=== PATIENT | female | born 1940 ===

== ENCOUNTER 2023-07-15 11:32 | Outpatient (REF) | payer MEDICARE, SELFPAY ==
[2023-07-15 14:21] LABS: Anion Gap 16.7; Calcium 9.6 mg/dL (8.5-10.1); Carbon Dioxide 25.6 mmol/L (21.0-32.0); Chloride 94 mmol/L (98-107); Estimated GFR (African America 47 (>=60); Estimated GFR (Non-African Ame 39 (>=60); Glucose 184 mg/dL (74-106); Potassium 4.3 mmol/L (3.5-5.1); Sodium 132 mmol/L (136-145)
== END 2023-07-15 11:33 | disposition home or self-care (01) ==
LOC: LAB 11:32
PROVIDERS: PCP Nurse Practitioner Adult Health; Visit Provider Nurse Practitioner Adult Health
DX: R60.9 Edema, unspecified (principal)
CPT/HCPCS: 36415; 80048

== ENCOUNTER 2023-08-05 02:33 | Outpatient (OUT) | payer MEDICARE, SELFPAY ==
--- OUTSIDE RECORDS SUMMARY | 2023-08-05 02:37 | XMS_ITS ---
Patient Summarization (C-CDA 2.1 CCD) Created on: August 05, 2023 WILFREDO JOHNSON : 1940 Sex: Undifferentiated Author Organization Sample organization Care Team Providers Care Health Practice Manager Name Role Phone Unavailable Unavailable MD Sherita Burris Attending Provider NON STAFF Primary Care Provider UnavailMD Sherita uMñoz Referring Provider Unavailable Unavailable Sherita Burris Referring Unavailable Sherita Burris Attending Unavailable Sherita Burris Admitting Unavailable NON STAFF Primary Care Unavailable Sherita Burris Attending Unavailable Sherita Burris Admitting Unavailable NON STAFF Primary Care Unavailable Amos José Unavailable Unavailable Dr. Amos José Primary Care Unavailable Sherita Burris Attending Unavailable Sherita Burris Referring Unavailable Dr. Amos José Primary Care Unavailable Sherita Burris Attending Unavailable Sherita Burris Referring Unavailable LOU STERLING Attending Unavailable LOU STERLING Referring Unavailable Azael Browne DO Primary Care Provider SHERITA BURRIS Attending Unavailable AZAEL BROWNE Primary Care Unavailable ELAI MACIEL Referring Unavailable ERICA HERRERA Attending Unavailable NO PCP, NO PCP Primary Care Unavailable ERICA HERRERA Attending Unavailable ISIAH HERRERAMAD Referring Unavailable NO PCP, NO PCP Primary Care Unavailable ERICA HERRERA M Referring Unavailable NO PCP, NO PCP Primary Care Unavailable Allergies Allergy Classification Reported Allergen(s) Allergy Type Date of Onset Reaction(s) Facility glimepiride (1 source) glimepiride; Translations: [GLIMEPIRIDE] Drug Allergy 06-24-2021 [facility] Repository (3 sources) glimepiride; Translations: [GLIMEPIRIDE] Drug Allergy 06-24-2021 Unknown [facility] Encounters Encounter Date Encounter Type Care Provider Facility Start: 07-25-2023 End: 07-25-2023 ambulatory ROSA Winkler [facility] Start: 07-23-2023 End: 07[facility]2023 [facility]: 07-05-[facility]23 End: 07-05-2023 ambulatory [facility] Start: 07-05-2023 End: 07-05-2023 Office outpatient visit 25 minutes Sherita Burris MD Work Phone: [facility] Comment on above: S/P CABG (coronary a rtery bypass graft) (Primary Dx); Aortic valve replaced; Mixed hyperlipidemia; Multiple vessel coronary artery disease; Nonrheumatic mitral valve regurgitation; Edema, unspecified type Start: 06-19-2023 End: 06-19-2023 ambulatory LOU TSERLING Not Available Start: 05-14-2023 End: 05-15-2023 ambulatory ELIA MACIEL [facility] Start: 11-23-[address] Amos Braun ility: Start: 11-23-2022 Office outpatient vi sit 25 minutes Amos José [facility] DO Work Phone: Start: 05-11-2022 Office outpatient vi sit 25 minutes Amos José [facility] DO Work Phone: Start: 05-11-[address] Amos Braun ility: Start: 11-10-2021 Office outpatient vi sit 25 minutes Sherita Burris MD Work Phone: [facility] DO Work Phone: Start: 07-07-2021 Chart Update Sherita nguyen MD Work Phone: [facility] DO Work Phone: Start: 07-05-2021 SURGNON, Provider: Sherita Burris, Status: Pen, Time: 10:00 AM Sherita Burris MD Work Phone: [facility] DO Work Phone: Start: 07-05-2021 End: 07-06-2021 ambulatory Sherita Burris Facility:[facility] Start: 07-05-2021 End: 07-05-2021 Admission to same day surgery center MD Sherita Burris Work Phone: [facility] Start: 07-04-2021 Chart Update Sherita nguyen MD Work Phone: [facility] DO Work Phone: Start: 07-03-2021 End: 07-03-2021 ambulatory Sherita Burris Facility:[facility] Start: 07-03-2021 End: 07-03-2021 Patient encounter procedure MD Sherita Burris Work Phone: [facility] Start: 06-21-2021 AUDIT Sherita nguyen MD Work Phone: [facility] DO Work Phone: Start: 06-07-2021 Office consultation new/estab patient 80 min Sherita Burris MD Work Phone: [facility] DO Work Phone: Immunizations Immunization Date Immunization Notes Care Provider Fa cilijesus 12-26-2020 Moderna COVID-19 Vaccine 100 MCG/0.5ML Intramuscular Suspension Sherita Burris MD Work Phone: [facility] Comment on above: Series: 10-26-2020 Fluad Quadrivalent 0 .5 ML Intramuscular Prefilled Syringe Sherita Burris MD Work Phone: [place] [address] DO Work Phone: 10-26-2020 influenza, injectabl e, quadrivalent, preservative free Sherita Burris MD Work Phone: [facility] Work Phone: 10-26-2020 influenza virus vaccine, unspecified formulation Sherita Burris MD Work Phone: [facility] Work Phone: 06-13-2020 Moderna COVID-19 Vaccine 100 MCG/0.5ML Intramuscular Suspension Sherita Burris MD Work Phone: [place] [address] DO Work Phone: 05-16-2020 Moderna COVID-19 Vaccine 100 MCG/0.5ML Intramuscular Suspension Sherita Burris MD Work Phone: [place] [address] DO Work Phone: 12-18-2019 Fluad Quadrivalent 0 .5 ML Intramuscular Prefilled Syringe Sherita Burris MD Work Phone: [place] [address] DO Work Phone: 12-18-2019 influenza, injectabl e, quadrivalent, preservative free Sherita Burris MD Work Phone: [facility] Work Phone: 12-13-2018 Influenza, injectabl e, Madin [place] Canine Kidney, preservative free, quadrivalent Sherita Burris MD Work Phone: [place] [address] DO Work Phone: 11-06-2017 influenza, injectabl e, quadrivalent, preservative free [facility] Work Phone: 12-14-2016 influenza, injectabl e, quadrivalent, preservative free [facility] Burris MD [facility] Work Phone: 11-28-2016 pneumococcal polysaccharide vaccine, 23 valent Sherita Burris MD Work Phone: [facility] Medications Current Medications Medication Drug Class(es) Dates Sig (Normalized) Sig (Original) acetaminophen 500 mg oral tablet (1 source) take 1 tablet by mouth every six hours as needed acetaminophen (Tylenol) 500 mg tablet Take 1 tablet (500 mg) by mouth every 6 hours if needed for mild pain (1 - 3). Active apixaban 5 mg oral tablet (4 sources) Factor Xa Inhibitor Start: 11-10-2021 take 1 tablet by mouth twice daily apixaban (Eliquis) 5 mg tablet Take 1 tablet (5 mg) by mouth 2 times a day. 11/10/2021 Active ascorbic acid 500 mg oral tablet (8 sources) Vitamin C take 1 tablet by mouth once daily ascorbic acid (Vitamin C) 500 mg tablet Take 1 tablet (500 mg) by mouth once daily. Active take 1 capsule by mouth once colton ly Vitamin C 500 MG Oral Capsule TAKE 1 CAPSULE Daily Quantity: 0 Refills: 0 Ordered: 10-Nov-2021 DO Active atorvastatin 20 mg oral tablet (8 sources) HMG-CoA Reductase Inhibitor take 1 tablet by mouth once daily at bedtime atorvastatin (Lipitor) 20 mg tablet Take 1 tablet (20 mg) by mouth once daily at bedtime. Active bumetanide 2 mg oral tablet (4 sources) Loop Diuretic Start: 06-29-19 take 1 tablet by mouth once daily bumetanide (Bumex) 2 mg tablet Take 1 tablet (2 mg) by mouth once daily. 06/28/2021 Active cholecalciferol 0.025 mg oral tablet (8 sources) Vitamin D take 1 tablet by mouth once daily cholecalciferol (Vitamin D3) 25 MCG (1000 UT) tablet Take 1 tablet (1,000 Units) by mouth once daily. Active take 1 capsule by mouth once colton ly Vitamin D3 25 MCG (1000 UT) Oral Capsule TAKE 1 CAPSULE Daily Quantity: 0 Refills: 0 Ordered: 10-Nov-2021 DO Active EQL Vitamin D3 2 5 MCG (1000 UT) Oral Capsule TAKE DIRECTED. Quantity: 0 Refills: 0 Ordered: 07-Jun-2021 DO Active 3 ml insulin glargine 100 unt/ml pen injector (4 sources) Insulin Analog Start: 10-09-2021 insulin glargi ne (Lantus Solostar U-100 Insulin) 100 unit/mL (3 mL) pen Inject under the skin. 10/09/2021 Active Start: 10-09-2021 Lantus SoloSta r 100 UNIT/ML Subcutaneous Solution Pen- injector Quantity: 6 Refills: 0 Ordered: 09-Oct-2021 DO Start : 09-Oct-2021 Active magnesium oxide 400 mg oral tablet (1 source) take 1 tablet by saul th once daily magnesium oxide (Mag-Ox) 400 mg tablet Take 1 tablet (400 mg) by mouth once daily. Active melatonin 5 mg oral capsule (4 sources) take 1 capsule by mouth once daily at bedtime melatonin 5 mg capsule Take 1 capsule (5 mg) by mouth once daily at bedtime. Active metFORMIN hydrochloride 500 mg oral tablet (9 sources) Biguanide take 2 tablets by mouth twice daily at mealtime metFORMIN (Glucophage) 500 mg tablet Take 2 tablets (1,000 mg) by mouth 2 times a day with meals. Active End: 07-05-2023 take 1 tablet by mouth twice daily metFORMIN, MOD, (Glumetza) 1,000 mg 24 hr tablet Take 1 tablet (1,000 mg) by mouth 2 times a day. 07/05/2023 Discontinued (Dose adjustment) metOLazone 2.5 mg oral tablet (4 sources) Thiazide-like Diuretic Start: 07-05-2023 End: 07-04-2024 take 1 tablet by mouth every other day metOLazone (Zaroxolyn) 2.5 mg tablet Indications: Edema, unspecified type Take 1 tablet (2.5 mg) by mouth every other day. 15 tablet 11 07/05/2023 07/04/2024 Active Start: 10-17-2021 End: 07-05-2023 take 1 tablet by mouth two times weekly metOLazone (Zaroxolyn) 2.5 mg tablet Take 1 tablet (2.5 mg) by mouth 2 times a week. 10/17/2021 07/05/2023 Discontinued (Dose adjustment) 24 hr metoprolol succinate 50 mg extended release oral tablet (8 sources) beta-Adrenergic Ally take 1 tablet by mouth twice daily metoprolol succinate XL (Toprol-XL) 50 mg 24 hr tablet Take 1 tablet (50 mg) by mouth 2 times a day. Active take 1 tablet by mouth once joanna y Metoprolol Succinate ER 50 MG Oral Tablet Extended Release 24 Hour Take 1 tablet daily Quantity: 90 Refills: 3 Ordered: 07-Jun-2021 DO Active pantoprazole 40 mg delayed release oral tablet (7 sources) Proton Pump Inhibitor take 1 tablet by mouth once daily pantoprazole (ProtoNix) 40 mg EC tablet Take 1 tablet (40 mg) by mouth once daily. Active saccharomyces boulardii 250 mg oral capsule (1 source) take 1 capsule by mouth twice daily saccharomyces boulardii (Florastor) 250 mg capsule Take 1 capsule (250 mg) by mouth 2 times a day. Active traZODone hydrochloride 50 mg oral tablet (2 sources) Serotonin Reuptake Inhibitor take 1 tablet by mouth once daily at bedtime traZODone (Desyrel) 50 mg tablet Take 1 tablet (50 mg) by mouth once daily at bedtime. Active Completed/Discontinued Medications Medication Drug Class(es) Dates Sig (Normalized) Sig (Original) dicyclomine hydrochloride 10 mg oral capsule (8 sources) Anticholinergic End: take 1 capsule by mouth three times daily dicyclomine (Bentyl) 10 mg capsule Take 1 capsule (10 mg) by mouth 3 times a day. 07/05/2023 Discontinued (Therapy completed) furosemide 40 mg oral tablet (4 sources) Loop Diuretic take 1 tablet by mouth once daily Furosemide 40 MG Oral Tablet TAKE 1 TABLET BY MOUTH ONE TIME A DAY Quantity: 30 Refills: 0 Ordered: 07-Jun-2021 DO Active Magnesium (7 sources) take 1 tablet by mouth once daily Magnesium 400 MG Oral Tablet Take 1 tablet daily Quantity: 90 Refills: 3 Ordered: 07-Jun-2021 DO Active nitroglycerin 0.4 mg sublingual tablet (8 sources) Nitrate Vasodilator End: 4 nitroglycerin (Nitrostat) 0.[address] under the tongue. 07/05/2023 Discontinued (Therapy completed) microencapsulated potassium chloride 20 meq extended release oral tablet (4 sources) Start: 2 take 1 tablet by mouth once daily Potassium Chloride Christel ER 20 MEQ Oral Tablet Extended Release TAKE 1 TABLET DAILY. Quantity: 30 Refills: 1 Ordered: 28-Jun-2021 DO Start : 28-Jun-2021 Active spironolactone 25 mg oral tablet (8 sources) Aldosterone Antagonist Start: 2 take 1 tablet by mouth once daily Spironolactone 25 MG Oral Tablet TAKE 1 TABLET DAILY. Quantity: 90 Refills: 3 Ordered: 07-Jun-2021 Sherita Burris MD Start : 07-Jun-2021 Active warfarin sodium 2 mg oral tablet (4 sources) Vitamin K Antagonist take 1 tablet by mouth once daily Warfarin Sodium 2 MG Oral Tablet TAKE 1 TABLET DAILY DIRECTED PER [facility] / USP Quantity: 0 Refills: 0 Ordered: 07-Jun-2021 DO Active Payers Date Payer Category Payer Medicare [employer] [place] [employer] [place] [employer] [id number] 2022-Present [address] [place] [address] [id number] 2021 Self-pay [id number] 2021 Medicare [id number] 1940 Unknown [id number] 1940 Unknown [id number] 1940 Unknown [id number] 9 1940 Unknown [id number] 4 1940 Unknown [id number] 6 1940 Unknown [id number] 6 1940 Unknown [id number] 6 1940 Unknown [id number] 6 1940 Unknown [id number] 6 1940 Unknown [id number] 6 1940 Unknown [id number] 6 1940 Unknown [id number] 6 Medicare [id number] Unknown [employer] [place] [employer]AGE Unknown [id number] Unknown [id number] Plan of Treatment Date Care Activity Detail Author Start: 03-06-2024 End: 03-06-2024 Patient encounter procedure 03/06/2024 11:20 AM EST Office Visit [address] [facility] [place] [address] [place] [address] Sherita Burris MD [address] [facility] [address] [place] [address] [facility] Start: 10-27-2023 Influenza vaccination Influenz a Vaccine (Season Ended) [facility] Start: 07-19-2023 End: 05-10-2025 Basic metabolic 2000 panel - Serum or Plasma Basic Metabolic Panel Lab Routine Edema, unspecified type Expected: 07/19/2023 (Approximate), Expires: 07/04/2024 [facility] Service Area Work Phone: Comment on above: Expected: 07/19/2023 (Approximate), Expires: 07/04/2024 Start: 11-23-2022 FUV, Provider: Sherita Burris, Status: Pen, Time: 11:10 AM FUV, Provider: Sherita Burris, Status: Pen, Time: 11:10 AM -[facility] DO Work Phone: Start: 10-26-2022 COVID-19 Vaccine () COVID-19 Vaccine () [facility] Start: 06-27-2022 Echocardiography Echocardiogram [facility] Start: 05-11-2022 FUV, Provider: Sherita Burris, Status: Pen, Time: 10:40 AM FUV, Provider: Sherita Burris, Status: Pen, Time: 10:[address] [facility] DO Work Phone: Start: 08-10-2021 FUV, Provider: Sherita Burris, Status: Pen, Time: 1:[address] [facility] DO Work Phone: Start: 07-13-2021 SURGNONUH, Provider: Sherita Burris, Status: Pen, Time: 11:00 AM SURGNONUH, Provider: Sherita Burris, Status: Pen, Time: 11:00 AM -[facility] DO Work Phone: Start: 11-28-2017 Pneumococcal Vaccine : 65+ Years (2 of 2 - PCV) Pneumococcal Vaccine: 65+ Years (2 of 2 - PCV) [facility] Start: 1998 RSV patient s and/or patients aged 60+ years (1 - 1-dose 60+ series) RSV patients and/or patients aged 60+ years (1 - 1-dose 60+ series) [facility] Start: 1988 Zoster Vaccines (1 of 2) Zoste r Vaccines (1 of 2) [facility] Start: 1960 DTaP/Tdap/Td Vaccine s (1 - Tdap) DTaP/Tdap/Td Vaccines (1 - Tdap) [facility] Start: 1956 Diabetes mellitus screening Diabetes Screening [facility] Start: 1940 Creatinine measurement Creatinine Le alethea [facility] Start: 1938 Lipid panel Lipid Panel [facility] Start: 1940 Medicare Annual Well ness Visit Medicare Annual Wellness Visit (AWV) [facility] Start: 1940 Potassium measurement Potassium Leve l [facility] Start: 1940 Screening for osteoporosis Bone Dens ity Scan [facility] Carbon dioxide, tota l [Moles/volume] in Serum or Plasma [facility] Work Phone: Chloride [Moles/volu me] in Serum or Plasma [facility] Work Phone: INR in Platelet poor plasma by Coagulation assay [facility] Work Phone: Potassium [Moles/vol ume] in Serum or Plasma [facility] Work Phone: Sodium [Moles/volume ] in Serum or Plasma [facility] Work Phone: Problems Problem Classification Problem Date Documented Date Episodic/Chronic Cardiac dysrhythmias (16 sources) Atrial tachycardia; Translations: [Other specified cardiac dysrhythmias] Onset: 05-07-2023 05-07-2023 Chronic Coronary atherosclerosis and other heart disease (11 sources) Multi vessel coronary artery disease; Translations: [Coronary atherosclerosis of unspecified type of vessel, deering or graft] Onset: 05-07-2023 07-05-2023 Chronic Coronary atherosclerosis and other heart disease (2 sources) Presence of aortocoronary bypass graft; Translations: [Presence of aortocoronary bypass graft] Onset: 05-07-2023 Episodic Diabetes mellitus without complication (1 source) Type 2 diabetes mellitus without complications; Translations: [Type 2 diabetes mellitus without complications] Onset: 05-14-2023 Chronic Disorders of lipid metabolism (11 sources) Hyperlipidemia; Translations: [Other and unspecified hyperlipidemia] Onset: 05-07-2023 07-05-2023 Chronic E Codes: Fall (1 source) Unspecified fall, initial encounter; Translations: [Unspecified fall, initial encounter] Onset: 07-23-2023 Episodic E Codes: Fall (1 source) Fall Onset: 07-23-2023 Fracture of upper limb (1 source) Unspecified displaced fracture of surgical neck of right humerus, initial encounter for closed fracture; Translations: [Unspecified displaced fracture of surgical neck of right humerus, initial encounter for closed fracture] Onset: 07-23-2023 Episodic Heart valve disorders (16 sources) History of aortic valve replacement; Translations: [Heart valve replaced by other means] Onset: 05-07-2023 07-05-2023 Chronic Other aftercare (7 sources) Drug therapy finding; Translations: [Long-term (current) use of anticoagulants] Episodic Other nutritional; endocrine; and metabolic disorders (9 sources) Overweight in adulthood with body mass index of 25 or more but less than 30; Translations: [Overweight] Onset: 07-08-2023 07-08-2023 Episodic Residual codes; unclassified (1 source) Edema; Translations: [Edema, unspecified] 07-05-2023 Episodic Residual codes; unclassified (2 sources) Edema, unspecified; Translations: [Edema, unspecified] Onset: 07-05-2023 Episodic Screening and history of mental health and substance abuse codes (7 sources) Ex-smoker; Translations: [Personal history of tobacco use] Episodic Comment on above: AT AGE 14 FOR ONE YE AR; Unclassified (1 source) I48.19 - Other persistent atrial fibrillation; Translations: [I48.19 - Other persistent atrial fibrillation] Onset: 07-05-2021 Unclassified (1 source) Z01.812 - Encounter for preprocedural laboratory examination; Translations: [Z01.812 - Encounter for preprocedural laboratory examination] Onset: 07-03-2021 Unclassified (1 source) EMS Onset: 07-23-2023 Procedures Date Procedure Procedure Detail Performing Clinician Start: 07-05-2023 Basic metabolic 2000 panel - Serum or Plasma SHERITA BURRIS Start: 05-07-2023 History of coronary artery bypass grafting S/P CABG (coronary artery bypass graft) Sherita Burris MD Work Phone: Start: 07-03-2021 SARS Antigen (LFIA) MD Sherita Burris Work Phone: Cardioversion Sherita nguyen MD Work Phone: History of coronary artery bypass grafting S/P CABG (coronary artery bypass graft) Sherita Burris MD Work Phone: History of coronary artery bypass grafting S/P CABG (coronary artery bypass graft) Sherita Burris MD Work Phone: Operative procedure on ankle Sherita Burris MD Work Phone: Replacement of aorti c valve Sherita Burris MD Work Phone: Total colonoscopy Sherita bhatt MD Work Phone: Comment on above: UNSURE OF DATE; Results Test Name Value Interpretation Reference Range Facility CT BRAIN WO CONTon CT BRAIN WO CONT CT BRAIN WO CONT CT BRAIN WO CONT INDICATION: Head trauma. TECHNIQUE: CT of the head without intravenous contrast. Reviewed in brain, bone, and soft tissue windows. COMPARISON: None. FINDINGS: No intracranial hemorrhage. Scattered periventricular and deep cortical white matter areas of low attenuation, likely representing sequelae of chronic microangiopathy. No territorial loss of max-white differentiation. Diffuse cerebral volume loss with appropriate size and morphology of the ventricular system. No extra-axial fluid collections or shift of midline structures. Patent basal cisterns. No depressed or displaced calvarial fracture. IMPRESSION: 1. No acute intracranial abnormality. 2. Senescent changes including cerebral volume loss and sequelae of chronic microangiopathy. 3. If there is sufficient clinical concern for acute ischemia or an occult abnormality, further evaluation with brain MRI is recommended. All CT scans at this facility use dose modulation, iterative reconstruction, and/or weight based dosing when appropriate to reduce radiation dose to as low as reasonably achievable. Finalized by Monster Escoto MD on 07/23/2023 9:52 AM Normal [facility] CT CERVICAL SPINE WO CONTon 07-23-2023 CT CERVICAL SPINE WO CONT CT CERVICAL SPINE WO CONT CLINICAL INFORMATION: Fall with cervical spine pain. Neck trauma.. PROCEDURE: Routine cervical spine protocol CT was obtained without intravenous contrast. Sagittal and coronal reformatted images were obtained from the axial data. Automated exposure control was utilized. All CT scans at this facility dose modulation, iterative reconstruction, and/or weight based dosing when appropriate to reduce radiation dose to as low as reasonably achievable. FINDINGS: Satisfactory alignment of the cervical spine. The vertebral body heights are preserved. No fracture or malalignment. Moderate degenerative changes throughout the cervical spine with osteophyte formation. The atlantoaxial space is intact with degenerative sclerosis. The posterior elements are intact with facet hypertrophy. Partially visualized lung apices are unremarkable. No acute findings in the soft tissues. Please note, ligamentous injury is not well evaluated on a neutral position CT. If concern for ligamentous injury consider flex-ex radiographs or MRI. IMPRESSION: No acute osseous abnormalities in the cervical spine. Finalized by Boubacar Cummins MD on 07/23/2023 10:07 AM Normal [facility] XR CHEST 1 VWon 07-23-2023 XR CHEST 1 VW XR CHEST 1 VW XR CHEST 1 VW HISTORY: Fall. Pain. COMPARISON: 06/27/2021 FINDINGS: AP supine film obtained. Unchanged, enlarged cardiac silhouette. No large pneumothorax or sizable pleural effusion, although evaluation is degraded by supine technique. No consolidation. No displaced or deforming rib fracture, although this exam is not optimized for osseous evaluation. Possible step-off in the proximal right humerus. IMPRESSION: 1. No radiographic evidence of acute cardiopulmonary process. 2. Possible cortical step-off in the proximal right humerus. Refer to concurrently performed radiographs of the shoulder for complete evaluation. Approved by Resident Ramesh Tay MD on 07/23/2023 10:00 AM Leonardo Limon have personally reviewed the image(s) and agree with and/or edited the report Finalized by Leonardo Johns on 07/23/2023 10:06 AM Normal [facility] XR HIP LT 2-3 VIEWS W OR WO PELVISon 07-23-2023 XR HIP LT 2-3 VIEWS W OR WO PELVIS XR HIP LT 2-3 VIEWS W OR WO PELVIS XR HIP LT 2-3 VIEWS W OR WO PELVIS CLINICAL INFORMATION: Hip pain after a fall. COMPARISON: None. IMPRESSION: * Degenerative changes of the left hip joint with no visualized acute fracture. Osteopenia and degenerative changes are noted. Vascular calcifications. Surgical clips are noted. Finalized by Lane Doyle MD on 07/23/2023 10:10 AM Normal [facility] XR SHOULDER RT MIN 2 VWSon 0 07-23-2023 XR SHOULDER RT MIN 2 VWS XR SHOULDER RT MIN 2 VWS XR SHOULDER RT MIN 2 VWS CLINICAL INFORMATION: fall COMPARISON: None. IMPRESSION: * Posttraumatic deformity of the right proximal humerus with superimposed neck fracture suspected. Osteopenia and degenerative changes are noted. Finalized by Lane Doyle MD on 07/23/2023 10:09 AM Normal [facility] HGB A1C (GLYCO-HGB)on 2023 Glucose [Mass/Vol] 214 mg/dL Normal [facility] HbA1c (Bld) [Mass fraction] 9.1 % High 4.4-5.6 [facility] Comment on above: Result Comment: NOTE ADA Guidelines Result HgbA1c Normal : less than 5.7 % Prediabetes : 5.7 % to 6.4 % Diabetes : > 6.4 % Use with caution in patients with abnormal hemoglobin variants as the half-life of red blood cells and in vivo glycation rates are affected. Office Visit (Cardiology)on 11-23-2022 Follow-up visit Diagnoses/Problems Assessed Persistent atrial fibrillation (427.31) (I48.19) Anticoagulated (V58.61) (Z79.01) Aortic valve replaced (V43.3) (Z95.2) Hyperlipidemia (272.4) (E78.5) Multiple vessel coronary artery disease (414.00) (I25.10) Overweight with body mass index (BMI) of 26 to 26.9 in adult (278.02,V85.22) (E66.3,Z68.26) S/P CABG (coronary artery bypass graft) (V45.81) (Z95.1) Nonrheumatic mitral valve regurgitation (424.0) (I34.0) Orders Anticoagulated, Multiple vessel coronary artery disease, Persistent atrial fibrillation Basic Metabolic Panel; Status:Active - Retrospective Authorization; Requested for:24Wal1634; Complete Blood Count; Status:Active - Retrospective Authorization; Requested for:[id number]; Hyperlipidemia, Multiple vessel coronary artery disease ALT - Alanine Aminotransferase, Serum; Status:Active - Retrospective Authorization; Requested for:16Mww8569; AST; Status:Active - Retrospective Authorization; Requested for:07Cqr4989; Lipid Panel; Status:Active - Retrospective Authorization; Requested for:09Nsb3530; Overweight with body mass index (BMI) of 26 to 26.9 in adult Healthy Weight Tips; Status:Complete - Retrospective Authorization; Done: 43Ljf2672 Some eating tips that can help you lose weight.; Status:Complete - Retrospective Authorization; Done: 13Epj2426 Persistent atrial fibrillation IO EKG Electrocardiogram- 12 Lead; Status:Complete; Done: 50Bjz8420 Patient Instructions Please bring all medicines, vitamins, and herbal supplements with you when you come to the office. Prescriptions will not be filled unless you are compliant with your follow up appointments or have a follow up appointment scheduled as per instruction of your physician. Refills should be requested at the time of your visit. Fall prevention education given Follow up in 8 months Same meds Lab work The provider reviewed the following test(s) and result(s) with the patient: ECG Chief Complaint WILFREDO JOHNSON is being seen for a 6 wekg month follow-up of. History of Present Illness Patient is here for follow-up continue management for persistent atrial fibrillation, aortic valve disease, mitral valve disease, coronary artery disease hyperlipidemia. Since last time I saw her she reports she is doing really well. She denies lightheadedness, dizziness or syncope. She remain in the jail. No recent lab available to review. She remains reasonably active. Assessment 1. Persis persistent becoming permanent atrial fibrillation cardioversion was successful but she went back to atrial fibrillation. She elected for heart rate control on long-term anticoagulation bilateral prostatic 2. History of bioprosthetic aortic valve replacement recent echo suggest good function. Echo was done at [facility] 3. Presumed single-vessel coronary artery disease status post single-vessel bypass surgery detail is lacking 4. LV systolic dysfunction with LVEF in the normal range based on echo from outside facility 5. Congestive heart failure related to the above factors compensated 6. Hyperlipidemia 7. Diabetes mellitus 8. Obesity 9. Recent echo at [facility] demonstrate mild to moderate mitral stenosis and mitral regurgitation Plan 1. I advised the patient to follow low-salt diet 2. I discussed with her daughter treatment option for atrial fibrillation. We discussed heart rate control strategy versus rhythm control strategy. Following lengthy discussion concerning the patient and jail and having no symptoms we elected to continue with heart rate control strategy the family understood and agreed 3. 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 We will repeat lab work as ordered Surgical History Problems History of Ankle surgery History of Aortic valve replacement History of Cardioversion History of Complete colonoscopy UNSURE OF DATE Current Meds Medication NameInstruction Atorvastatin Calcium 20 MG Oral TabletTAKE 1 TABLET AT BEDTIME. Bentyl 10 MG CAPSTAKE 1 CAPSULE 3 TIMES DAILY. NEEDED Bumetanide 2 MG Oral TabletTAKE 1 TABLET DAILY. Eliquis 5 MG Oral TabletTake 1 tablet twice daily Lantus SoloStar 100 UNIT/ML Subcutaneous Solution Pen-injector Magnesium 400 MG Oral TabletTake 1 tablet daily Melatonin 5 MG Oral CapsuleTAKE 1 CAPSULE Bedtime metFORMIN HCl ER (MOD) 1000 MG Oral Tablet Extended Release 24 HourTake 1 tablet twice daily metOLazone 2.5 MG Oral Tablet1 tab 2 times weekly sat -wed Metoprolol Succinate ER 50 MG Oral Tablet Extended Release 24 HourTake 1 tablet twice daily Nitroglycerin 0.4 MG Sublingual Tablet SublingualPLACE 1 TABLET UNDER THE TONGUE EVERY 5 MINUTES FOR UP TO 3 DOSES NEEDED FOR CHEST PAIN.CALL 911 IF PAIN PERSISTS. Pantoprazole Sodium 40 MG Oral Tablet Delayed ReleaseTAKE 1 TABLET DAILY. Potassium Chloride Christel ER 20 (more content not included)... Normal [place] Tobacco Screening.on 023 Adult depression screening assessment No [facility] 250 DO Work Phone: Fall risk assessment b) One or more fall s in the last year [facility] 250 DO Work Phone: [phone] Tobacco use status HS b) No [facility] 250 DO Work Phone: Office Visit (Cardiology)on 05-11-2022 Follow-up visit Diagnoses/Problems Assessed Persistent atrial fibrillation (427.31) (I48.19) S/P CABG (coronary artery bypass graft) (V45.81) (Z95.1) Aortic valve replaced (V43.3) (Z95.2) Atrial tachycardia (427.89) (I47.1) Former smoker (V15.82) (Z87.891) AT AGE 14 FOR ONE YEAR Hyperlipidemia (272.4) (E78.5) Multiple vessel coronary artery disease (414.00) (I25.10) Overweight with body mass index (BMI) of 25 to 25.9 in adult (278.02,V85.21) (E66.3,Z68.25) Anticoagulated (V58.61) (Z79.01) Overweight with body mass index (BMI) of 26 to 26.9 in adult (278.02,V85.22) (E66.3,Z68.26) Orders Hyperlipidemia, Multiple vessel coronary artery disease Renew: Atorvastatin Calcium 20 MG Oral Tablet; TAKE 1 TABLET AT BEDTIME Hyperlipidemia, Multiple vessel coronary artery disease, Persistent atrial fibrillation, S/P CABG (coronary artery bypass graft) ALT - Alanine Aminotransferase, Serum; Status:Active - Retrospective Authorization; Requested for:11May2022; AST; Status:Active - Retrospective Authorization; Requested for:11May2022; Basic Metabolic Panel; Status:Active - Retrospective Authorization; Requested for:11May2022; Complete Blood Count; Status:Active - Retrospective Authorization; Requested for:11May2022; Lipid Panel; Status:Active - Retrospective Authorization; Requested for:11May2022; Persistent atrial fibrillation IO EKG Electrocardiogram- 12 Lead; Status:Complete; Done: 11May2022 SocHx: Former smoker Tobacco Use Screening; Status:Complete; Done: 11May2022 Patient Instructions Please bring all medicines, vitamins, and herbal supplements with you when you come to the office. Prescriptions will not be filled unless you are compliant with your follow up appointments or have a follow up appointment scheduled as per instruction of your physician. Refills should be requested at the time of your visit. Follow up in 6 months with EKG Chief Complaint WILFREDO JOHNSON is being seen for a 6 month follow-up of. History of Present Illness Patient is here for follow-up continue management for persistent atrial fibrillation with prior cardioversion, aortic valve replacement, coronary artery disease and history of congestive heart failure. Since last time I saw her she reports she is feeling well. She is a jail. She denies complaint of chest pain, palpitation, lightheadedness, dizziness or syncope. On examination the patient noted to be in back in atrial fibrillation. EKG confirmed that. Her recent echocardiogram was noted and reviewed with her. Assessment 1. Persistent atrial fibrillation with prior cardioversion now back to atrial fibrillation but completely asymptomatic. Heart rate is controlled 2. History of prostatic aortic valve replacement recent echo suggest good function 3. Presumed single-vessel coronary artery disease status post single-vessel bypass surgery detail is lacking 4. LV systolic dysfunction with LVEF in the normal range based on echo from outside facility 5. Congestive heart failure related to the above factors compensated 6. Hyperlipidemia 7. Diabetes mellitus 8. Obesity Plan 1. I advised the patient to follow low-salt diet 2. I discussed with her daughter treatment option for atrial fibrillation. We discussed heart rate control strategy versus rhythm control strategy. Following lengthy discussion concerning the patient and jail and having no symptoms we elected to continue with heart rate control strategy the family understood and agreed 3. 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 We will repeat lab work as ordered Surgical History Problems History of Ankle surgery History of Aortic valve replacement History of Cardioversion History of Complete colonoscopy UNSURE OF DATE Current Meds Medication NameInstruction Atorvastatin Calcium 20 MG Oral TabletTAKE 1 TABLET AT BEDTIME. Bentyl 10 MG CAPSTAKE 1 CAPSULE 3 TIMES DAILY. NEEDED Bumetanide 2 MG Oral TabletTAKE 1 TABLET DAILY. Eliquis 5 MG Oral TabletTake 1 tablet twice daily Lantus SoloStar 100 UNIT/ML Subcutaneous Solution Pen-injector Magnesium 400 MG Oral TabletTake 1 tablet daily Melatonin 5 MG Oral CapsuleTAKE 1 CAPSULE Bedtime metFORMIN HCl ER (MOD) 1000 MG Oral Tablet Extended Release 24 HourTake 1 tablet twice daily Metoprolol Succinate ER 50 MG Oral Tablet Extended Release 24 HourTake 1 tablet twice daily Nitroglycerin 0.4 MG Sublingual Tablet SublingualPLACE 1 TABLET UNDER THE TONGUE EVERY 5 MINUTES FOR UP TO 3 DOSES NEEDED FOR CHEST PAIN.CALL 911 IF PAIN PERSISTS. Potassium Chloride Christel ER 20 MEQ Oral Tablet Extended ReleaseTAKE 1 TABLET DAILY. Spironolactone 25 MG Oral TabletTAKE 1 TABLET DAILY. Vitamin C 500 MG Oral CapsuleTAKE 1 CAPSULE Daily Vitamin D3 25 MCG (1000 UT) Oral CapsuleTAKE 1 CAPSULE Daily Allergies Medication No Known Drug Allergies Recorded (more content not included)... Normal [place] [employer] Tobacco Screening.on Fall risk assessment a) No falls within the last year [facility] 250 DO Work Phone: Tobacco use status [facility]PH[facility] b) No [facility] Work Phone: Tobacco Screening. Yes [facility] 250 DO Work Phone: Tobacco Screening.on Fall risk assessment a) [facility] the [facility] DO Work Phone: Tobacco use status CP b) No [facility] DO Work Phone: POCT Glucose Levelon Glucose [Mass/Vol] 224 mg/dL High 74-118 [facility] Comment on above: Result Comment: Resu lt error found and corrected during lab audit. SD 07/06/2021 11:22:03 EDT Performed By: #### 4 [id number] ####[facility] (DEFAULT)[address] [place] [address] ECG 12 lead ECGon 07-05-2021 ECG 12 lead ECG [facility] [address] [place] [address] Electrocardiograph Report Signed Patient: Wilfredo Johnson MR#: [id number] 18 : 1940 Acct:[id number] Age/Sex: 81 / F ADM Date: 07/05/21 Loc: Room: Type: [facility] Attending Dr: Shreita Burris MD Ordering Provider: Sherita Burris MD Date of Service: 07/05/21/ ECG/ECG 12 lead ECG: PRE-CARDIOVERSION Copies to: Test Reason : Blood Pressure : 124/057 mmHG Vent. Rate : 061 BPM Atrial Rate : 061 BPM P-R Int : 210 ms QRS Dur : 138 ms QT Int : 450 ms P-R-T Axes : 083 -53 112 degrees QTc Int : 453 ms Sinus rhythm with 1st degree AV block with premature atrial complexes Left axis deviation Nonspecific intraventricular block - atypical LBBB Nonspecific T wave abnormality Abnormal ECG When compared with ECG of 05-JUL-2021 08:48, (Unconfirmed) Sinus rhythm has replaced Atrial fibrillation Vent. rate has decreased BY 37 BPM Confirmed by WU FINNEY DO ([id number]) on 07/06/2021 4:48:57 PM Referred By: Sherita Burris Electronically Signed By:WU FINNEY DO Transcribed By: YOUNG Signed By Wu Finney DO 07/06 1649 Normal [facility] ECG post procedureon 022 ECG post procedure [place] [address] Electrocardiograph Report Signed Patient: Wilfredo Johnson MR#: [id number] 18 : 1940 Acct:[id number] Age/Sex: 81 / F ADM Date: 07/05/21 Loc: Room: Type: [facility] Attending Dr: Sherita Burris MD Ordering Provider: Sherita Burris MD Date of Service: 07/05/21/ ECG/ECG post procedure: POST CARDIOVERSION Copies to: Test Reason : Blood Pressure : / mmHG Vent. Rate : 098 BPM Atrial Rate : 119 BPM P-R Int : 000 ms QRS Dur : 136 ms QT Int : 386 ms P-R-T Axes : 000 -44 140 degrees QTc Int : 492 ms Atrial fibrillation Left axis deviation Left bundle branch block Abnormal ECG No previous ECGs available Confirmed by WU FINNEY DO ([id number]) on 07/06/2021 4:48:26 PM Referred By: Sherita Burris Electronically Signed By:WU SHARMIN DO Transcribed By: MUS Signed By Wu Finney DO 07/06 1648 Normal [facility] Electrolyteson 07-05-2021 Chloride [Moles/Vol] 90 mmol/L Low 95-114 [facility] Comment on above: Performed By: #### P T, DMITRI #### [facility] [address] [place] [id number] [facility] CO2 [Moles/Vol] 35.2 mmol/L High 22.0-30.0 [facility] Comment on above: Result Comment: PERF ORMED BY: [facility] [address] [place] [address] PATHOLOGIST PROGRAM COORDINATOR FOR RESIDENCE LIFE OLIMPIA ORDONEZ M.D. Performed By: #### P T, DMITRI #### [facility] [address] Potassium [Moles/Vol] 3.9 mmol/L Normal 3.5-5.1 [facility] Comment on above: Performed By: #### P T, DMITRI #### [facility] [address] Sodium [Moles/Vol] 139 mmol/L Normal 136-146 [facility] Comment on above: Performed By: #### P T, DMITRI #### [facility] [address] No Panel Informationon 07-05 35.2\S\35.2 above high threshold 22.0-30.[address] [facility] 250 DO Work Phone: Comment on above: PERFORMED BY:[facility] [place], [place] [phone] MEDICAL DIRECTOROLIMPIA ORDONEZ M.D. 90\S\90 below low threshold 95-[address] [facility] 250 DO Work Phone: 3.9\S\3.9 Normal 3.5-5.[address] [facility] 250 DO Work Phone: 139\S\139 Normal 136-146 [facility] y 250 DO Work Phone: 2.7\S\2.7 Normal [facility] y 250 DO Work Phone: Comment on above: INR Therapeutic Rang e A) Pre- and Peroperative OAT started two weeks before surgery. NOT HIP SURGERY: 1.5 - 2.5 HIP SURGERY: 2 - 3 B) Primary and secondary prevention of venous THROMBOSIS: 2 - 3 C) Active venous thrombosis, pulmonary embolism and prevention of recurrent venous thrombosis: 2 - 3 D) Prevention of arterial thromboembolism including patients with mechanical heart valves: 3 - 4.5PERFORMED BY:[facility] [place], [place] [phone] MEDICAL DIRECTOROLIMPIA ORDONEZ M.D. 31.2\S\31.2 above high threshold 9.0-12.9 [facility] 250 DO Work Phone: Prothrombin Time INRon 07-05 INR Coag (PPP) [Relative time] 2.7 {INR} Normal [facility] Comment on above: Result Comment: INR Therapeutic Range A) Pre- and Peroperative OAT started two weeks before surgery. NOT HIP SURGERY: 1.5 - 2.5 HIP SURGERY: 2 - 3 B) Primary and secondary prevention of venous THROMBOSIS: 2 - 3 C) Active venous thrombosis, pulmonary embolism and prevention of recurrent venous thrombosis: 2 - 3 D) Prevention of arterial thromboembolism including patients with mechanical heart valves: 3 - 4.5 PERFORMED BY: [facility] [address] [place] [address] PATHOLOGIST PROGRAM COORDINATOR FOR RESIDENCE LIFE OLIMPIA ORDONEZ M.D. Performed By: #### P TDMITRI #### [facility] [address] [place] [id number] [facility] PT Coag (PPP) [Time] 31.2 s High 9.0-12.9 [facility] Comment on above: Performed By: #### P T LYTES #### [facility] [address] [place] [id number] [place] COVID-19 Antigenon 2 COVID-19 Antigen Healthcare Worker?: N Reference Range: Negative Negative results, from patients with symptom onset beyond five days, should be treated as presumptive and confirmation with a molecular assay, if necessary, for patient management, may be performed. Negative results do not rule out COVID-19 and should not be used as the sole basis for treatment or patient management decisions, including infection control decisions. Negative results should be considered in the context of a patient's recent exposures, history and the presence of clinical signs and symptoms consistent with COVID-19. The Galilea SARS Antigen MAURICIO does not differentiate between SARS-CoV and SARS-CoV-2. This test was developed and its performance characteristic determined by [facility] and validated at [facility]. This test has not been FDA cleared or approved. This test has been authorized by FDA under an Emergency Use Authorization (EUA). This test has been validated in accordance with the FDA's Guidance Document (Policy for Diagnostics Testing in Laboratories Certified to Perform High Complexity Testing under CLIA prior to Emergency Use Authorization for Coronavirus Disease-2019 during the Public Health Emergency) issued on May 28, 2019. This test is only authorized for the duration of time the declaration that circumstances exist justifying the authorization of the emergency use of in vitro diagnostic tests for detection of SARS-CoV-2 virus and/or diagnosis of COVID-19 infection under section 564(b)(1) of the Act, 21 U.S.C. 360bbb-3(b)(1), unless the authorization is terminated or revoked sooner. SARS-CoV+SARS-CoV-2 (COVID-19) Ag [Presence] in Respiratory specimen by Rapid immunoassay Negative for SARS Antigen by MAURICIO PERFORMED BY: [place] [address] PATHOLOGIST PROGRAM COORDINATOR FOR RESIDENCE LIFE OLIMPIA ORDONEZ M.D. [facility] Comment on above: Performed By: #### C OVID-19 JUMA CALERO #### [address] COVID-19 SOFIAOrdered By: Marcos Burris on 07-03-2021 SARS-CoV+SARS-CoV-2 (COVID-19) Ag IA.rapid Ql (Resp) Negative Negative [facility] Comment on above: This is a duplicate Galilea SARS Antigen (MAURICIO) result to be used for statistical tracking purpose only. Laboratory - Microbiology an d Antimicrobial susceptibilityon 07-03-2021 SARS-CoV-2 (COVID-19) RNA KESHAWN+probe Ql (Unsp spec) [facility] y 250 DO Work Phone: No Panel InformationOrdered By: Sherita Burris on 07-03-2021 SARS Antigen (LFIA) [facility] No Panel Informationon 07-03 Negative Normal Negative [facility] y 250 DO Work Phone: Comment on above: This is a duplicate Galilea SARS Antigen (MAURICIO) result to be used for statistical tracking purpose only.PERFORMED BY:[facility] [place], [place] [id number] MEDICAL DIRECTOROLIMPIA ORDONEZ M.D. Galilea Ag Negativeon 07-04-19 22 Galilea Ag Negative Negative Normal Negative [facility] Comment on above: Result Comment: This is a duplicate Galilea SARS Antigen (MAURICIO) result to be used for statistical tracking purpose only. PERFORMED BY: [facility] [address] [place] [id number] PATHOLOGIST PROGRAM COORDINATOR FOR RESIDENCE LIFE OLIMPIA ORDONEZ M.D. Performed By: #### C OVID-19 GALILEA, SOFIANEG #### [place] [id number] [place] Outside Recordson 06-28-2021 Outside Records [id number]# 1.00OTGTIFF [facility] Outside Records [id number]# 1.00OTGTIFF [facility] Outside Recordson 06-27-2021 Outside Records [id number] #1.00OTGTIFF [facility] Tobacco Screening.on 022 Adult depression screening assessment No [facility] [place] [facility] 250 DO Work Phone: Fall risk assessment b) One or more fall s in the last year [facility] 250 DO Work Phone: Tobacco use status CP b) No [facility] 250 DO Work Phone: Coding Summaryon 05-30-2021 Coding Summary [facility] Outside Recordson 05-30-2021 Outside Records [id number]# [facility] 05-26-2021 Outside Records [id number]#1 .[facility] Outside Records [id number]#1 .[facility] Outside Recordson 05-25-2021 Outside Records [id number]#1 .[facility] Provider Orderson 05-25-2021 Provider Orders [id number]#1 .00[facility] Telemetry Stripson Telemetry Strips [id number]#1 .[facility] Coding Summaryon 05-24-2021 Coding Summary [facility] Education Noteon 05-24-2021 Education Note [facility] Extra Redon 05-24-2021 Tube Collected Yes Invalid Interpretation Code [facility] Comment on above: Performed By: #### 1 [id number] ####[facility] (DEFAULT)[address] [place] [address] Inpatient Clinical Summaryon 05-24-2021 Inpatient Clinical Summary [facility] Inpatient Patient Summaryon 05-24-2021 Inpatient Patient Summary Normal [facility] Nutrition Noteon 05-24-2021 Nutrition Note [facility] Outside Recordson 05-24-2021 Outside Records [id number]#1 .00OTGTIFF [facility] POCT Glucose Levelon 022 Glucose [Mass/Vol] 187 mg/dL High [address] [place] [address] Comment on above: Performed By: #### 4 [id number] ####[facility] (DEFAULT)[address] [place] [address] Glucose [Mass/Vol] 178 mg/dL High [address] [place] [address] Comment on above: Performed By: #### 4 [id number] ####[facility] (DEFAULT)[address] [place] [address] Glucose [Mass/Vol] 153 mg/dL High [address] [place] [address] Comment on above: Performed By: #### 4 [id number] ####[facility] (DEFAULT)[address] [place] [address] PTon 05-24-2021 INR Coag (PPP) [Relative time] 1.93 {INR} High 0.91-1.11 [facility] Comment on above: Performed By: #### 1 [id number], [id number], 3893887, [id number] ####[facility] (DEFAULT)[address] [place] [address] PT 20.2 second(s) High 9.7-11.8 [facility] Comment on above: Performed By: #### 1 [id number], [id number], 4585432, [id number] ####[facility] (DEFAULT)[address] [place], [place] [address] Pharmacy Noteon 05-24-2021 Pharmacy Note [facility] Progress Note - Nurseon 04-27 Progress Note - Nurse [facility] Telemetry Stripson Telemetry Strips [id number]#1 .00OTGTIFF [facility] .Auto Diff 1on 05-23-2021 Auto Tunica % 9 % Normal 1-12 [facility] Comment on above: Performed By: #### 1 [id number], 4091582, 6266704, 6506693, 96125624, 7613214475 ####[facility] (DEFAULT)[address] [place] [address] 91721 Baso Abs# 0.0 x10 Normal 0.0-0.2 [facility] Comment on above: Performed By: #### 1 890040865, 7209556, 6629797, 3464081, 09390810, 5905565129 ####[facility] (DEFAULT)[address] [place] [address] 99592 Basophils/100 WBC (Bld) 0.2 % Normal 0.2-2.0 [facility] Comment on above: Performed By: #### 1 854523483, 4296338, 9253954, 6401357, 61006298, 9981105762 ####[facility] (DEFAULT)[address] [place] [address] 70006 Eos Abs# 0.1 x10 Normal 0.0-0.4 [facility] Comment on above: Performed By: #### 1 275152250, 1304493, 4566107, 4901308, 89722018, 1775815128 ####[facility] (DEFAULT)[address] [place] [address] 91774 Eosinophils/100 WBC (Bld) 1.0 % Normal 0.9-4.0 [facility] Comment on above: Performed By: #### 1 255648263, 7907757, 1019282, 7578454, 17124610, 1244168763 ####[facility] (DEFAULT)[address] [place] [address] 27260 Lymph Abs# 2.3 x10 Normal 1.3-2.9 [facility] Comment on above: Performed By: #### 1 992842119, 1656915, 6319655, 1288394, 85212184, 1091272183 ####[facility] (DEFAULT)[address] [place] [address] 47167 Lymphocytes/100 WBC (Bld) 27 % Normal 14-48 [facility] Comment on above: Performed By: #### 1 [id number], 9708036, 1270723, 0814339, 99822107, 3876740869 ####[facility] (DEFAULT)[address] [place] [address] Tunica Abs# 0.8 x10 Normal 0.0-0.8 [facility] Comment on above: Performed By: #### 1 747513923, 4667691, 0503708, 3425534, 51429401, 4552088106 ####[facility] (DEFAULT)[address] [place] [address] Neut Abs# 5.4 x10 Normal 1.5-9.2 [facility] Comment on above: Performed By: #### 1 811362513, 5151911, 4672469, 6907644, 96383710, 1531128907 ####[facility] (DEFAULT)[address] [place] [address] Neutrophils/100 WBC (Bld) 63 % Normal 44-88 [facility] Comment on above: Performed By: #### 1 735233639, 6979810, 8057792, 7390585, 81771018, 0885999633 ####[facility] (DEFAULT)[address] [place] [address] CBC w/ Auto Diffon Erythrocyte distribution width (RBC) [Ratio] 14.3 % Normal 11.5-15.0 [facility] Comment on above: Performed By: #### 1 650582769, 8117438, 0676673, 7923138, 65214980, 6754394074 ####[facility] (DEFAULT)[address] [place] [address] Hematocrit (Bld) [Volume fraction] 41.7 % High 33.7-40.4 [facility] Comment on above: Performed By: #### 1 994570438, 1158198, 9937194, 2925176, 78590684, 9877491364 ####[facility] (DEFAULT)[address] [place] [address] Hemoglobin (Bld) [Mass/Vol] 12.7 g/dL Normal 11.3-15.9 [facility] Comment on above: Performed By: #### 1 392377133, 5309991, 7011357, 5842922, 13212072, 9440245901 ####[facility] (DEFAULT)[address] [place] [address] Instr WBC 8.6 x10 Invalid Interpretation Code [facility] Comment on above: Performed By: #### 1 545752767, 2855611, 1527820, 0281019, 39181467, 2517189456 ####[facility] (DEFAULT)[address] [place] [address] 84066 Man Diff? Auto Normal [facility] Comment on above: Performed By: #### 1 457222085, 9432432, 8847488, 8590533, 47222515, 0727000971 ####[facility] (DEFAULT)[address] [place] [address] 95748 MCH (RBC) [Entitic mass] 29 pg Normal 24-34 [facility] Comment on above: Performed By: #### 1 602162834, 9553686, 6560736, 0157531, 41821517, 5512307465 ####[facility] (DEFAULT)[address] [place] [address] 37650 MCHC (RBC) [Mass/Vol] 30 g/dL Normal 26-37 [facility] Comment on above: Performed By: #### 1 062494071, 0274774, 5813576, 3002386, 69831263, 4886127478 ####[facility] (DEFAULT)[address] [place] [address] 59270 MCV (RBC) [Entitic vol] 96 fL Normal 81-100 [facility] Comment on above: Performed By: #### 1 276527822, 1563051, 2663632, 3307809, 89414392, 5086241277 ####[facility] (DEFAULT)[address] [place] [address] 82729 Platelet 233 x10 Normal 138-427 [facility] Comment on above: Performed By: #### 1 369279348, 8607095, 3040055, 1626901, 50800805, 5925523824 ####[facility] (DEFAULT)[address] [place] [address] 04658 Platelet mean volume (Bld) [Entitic vol] 9.4 fL Normal 6.3-10.2 [facility] Comment on above: Performed By: #### 1 965869690, 9743021, 7038411, 7777483, 79360151, 4471885584 ####[facility] (DEFAULT)[address] [place] [address] RBC 4.34 x10 Normal 3.70-5.30 [facility] Comment on above: Performed By: #### 1 962955822, 6277947, 4571586, 6315365, 11937679, 3644903270 ####[facility] (DEFAULT)[address] [place] [address] WBC 8.6 x10 Normal 3.5-10.5 [facility] Comment on above: Performed By: #### 1 012545708, 7558908, 1630018, 2197766, 98229233, 4112015157 ####[facility] (DEFAULT)[address] [place] [address] CMP Standardon 05-23-2021 Albumin [Mass/Vol] 3.1 g/dL Low 3.5-5.0 [facility] Comment on above: Performed By: #### 1 770735693, 2415774, 4666062, 7672265, 48552871, 1520822000 ####[facility] (DEFAULT)[address] [place] [address] 89230 Albumin/Globulin [Mass ratio] 1.0 {ratio} Low 1.4-2.6 [facility] Comment on above: Performed By: #### 1 793791951, 6828403, 1424191, 4664653, 00708341, 2769386447 ####[facility] (DEFAULT)[address] [place] [address] Alk Phos 81 IU/L Normal 32-91 [facility] Comment on above: Performed By: #### 1 260821012, 2896214, 1072077, 5236412, 77285847, 1795164037 ####[facility] (DEFAULT)[address] [place] [address] 27625 ALT [Catalytic activity/Vol] 11.0 U/L Low 14.0-54.0 [facility] Comment on above: Performed By: #### 1 899183843, 4742060, 4417386, 0268332, 78009714, 8191562616 ####[facility] (DEFAULT)[address] [place] [address] 02446 Anion gap [Moles/Vol] 18.0 mmol/L Normal 5.0-19.0 [facility] Comment on above: Performed By: #### 1 121105824, 7289891, 9023956, 9241122, 77303844, 2798370360 ####[facility] (DEFAULT)[address] [place] [address] 13722 AST [Catalytic activity/Vol] 15 U/L Normal 15-41 [facility] Comment on above: Performed By: #### 1 860393168, 3313914, 6615034, 7920162, 34375173, 7548935675 ####[facility] (DEFAULT)[address] [place] [address] 43674 Bili Total 0.3 mg/dL Normal 0.3-1.2 [facility] Comment on above: Performed By: #### 1 827425506, 3940474, 6258546, 0708417, 41092930, 4696636207 ####[facility] (DEFAULT)[address] [place] [address] 18897 Calcium [Mass/Vol] 8.8 mg/dL Low 8.9-10.3 [facility] Comment on above: Performed By: #### 1 643838816, 2145330, 1117521, 3410778, 67183707, 5323218710 ####[facility] (DEFAULT)[address] [place] [address] 39762 Chloride [Moles/Vol] 96 mmol/L Low 101-111 [facility] Comment on above: Performed By: #### 1 338190807, 0442002, 1182397, 7807569, 33058129, 0540888682 ####[facility] (DEFAULT)[address] [place] [address] CO2 [Moles/Vol] 28 mmol/L Normal 21-32 [facility] Comment on above: Performed By: #### 1 905568063, 9212472, 1575000, 9323903, 07084555, 7494583782 ####[facility] (DEFAULT)[address] [place] [address] Creatinine [Mass/Vol] 0.93 mg/dL Normal 0.60-1.30 [facility] Comment on above: Performed By: #### 1 573157136, 7682017, 8770289, 0194671, 94436179, 5726331542 ####[facility] (DEFAULT)[address] [place] [address] eGFR AA >60 Invalid Interpretation Code [facility] Comment on above: Result Comment: Bad Credit Collector tia Kidney disease could be indicated at eGFRs of less than 60 ml/min/1.73m2. Kidney Failure is indicated at less than 15 ml/min/1.73m2 Performed By: #### 1 308941177, 9605007, 3920453, 6221685, 64964808, 1763778578 ####[facility] (DEFAULT)[address] [place] [address] eGFR Non AA 58 mL/min/1.73m2 Invalid Interpretation Code [facility] Comment on above: Performed By: #### 1 381414546, 0150083, 0700046, 3736959, 62077264, 9038030260 ####[facility] (DEFAULT)[address] [place] [address] 88623 Globulin (S) [Mass/Vol] 3.1 g/dL Normal 1.5-4.3 [facility] Comment on above: Performed By: #### 1 639437154, 1119482, 7226571, 9688955, 04692216, 1507016931 ####[facility] (DEFAULT)[address] [place] [address] Glucose [Mass/Vol] 141.0 mg/dL High 74.0-118.0 [facility] Comment on above: Performed By: #### 1 129183537, 1547241, 9530826, 1924111, 64325288, 2962445442 ####[facility] (DEFAULT)[address] [place] [address] 55107 Osmolality 281 mOsm/L Invalid Interpretation Code [facility] Comment on above: Performed By: #### 1 573784461, 7644695, 3359753, 1818028, 66117030, 5205714856 ####[facility] (DEFAULT)[address] [place] [address] 08764 Potassium [Moles/Vol] 3.8 mmol/L Normal 3.6-5.1 [facility] Comment on above: Result Comment: Pota ssium therapy Performed By: #### 1 658176244, 3990083, 3621481, 7021961, 64425807, 8591599876 ####[facility] (DEFAULT)[address] [place] [address] 82341 Protein [Mass/Vol] 6.2 g/dL Low 6.5-8.1 [facility] Comment on above: Performed By: #### 1 798916259, 6571119, 7845979, 7565803, 65207572, 4633019288 ####[facility] (DEFAULT)[address] [place] [address] 04352 Sodium [Moles/Vol] 138.0 mmol/L Normal 136.0-144.0 [facility] Comment on above: Performed By: #### 1 520652762, 1394636, 1004543, 6853508, 19734014, 4519348023 ####[facility] (DEFAULT)[address] [place] [address] 86688 Urea nitrogen [Mass/Vol] 20 mg/dL Normal 8-26 [facility] Comment on above: Performed By: #### 1 345875250, 4342560, 8191683, 9223640, 35341631, 2816960294 ####[facility] (DEFAULT)[address] [place] [address] 31547 Urea nitrogen/Creatinine [Mass ratio] 22.0 mg/mg High 4.6-16.2 [facility] Comment on above: Performed By: #### 1 142076425, 2067208, 4111132, 7251725, 67103261, 3508363924 ####[facility] (DEFAULT)[address] [place] [address] 35084 Extra Redon 05-23-2021 Tube Collected Yes Invalid Interpretation Code [facility] Comment on above: Performed By: #### 1 694599354, 0081072, 8155847, 4529051, 10966892, 8003843810 ####[facility] (DEFAULT)[address] [place] [address] 53773 Magnesiumon 05-23-2021 Magnesium [Mass/Vol] 1.76 mg/dL Low 1.80-2.50 [facility] Comment on above: Performed By: #### 1 533861638, 4232825, 1658623, 7576353, 85624604, 0518940857 ####[facility] (DEFAULT)[address] [place] [address] 90980 POCT Glucose Levelon 022 Glucose [Mass/Vol] 132 mg/dL High 74-118 [facility] Comment on above: Performed By: #### 4 [id number] ####[facility] (DEFAULT)[address] [place] [address] 88929 Glucose [Mass/Vol] 186 mg/dL High [address] [place] [address] Comment on above: Performed By: #### 4 [id number] ####[facility] (DEFAULT)[address] [place] [address] 23010 Glucose [Mass/Vol] 153 mg/dL High [address] [place] [address] Comment on above: Performed By: #### 4 [id number] ####[facility] (DEFAULT)[address] [place] [address] 09101 Glucose [Mass/Vol] 174 mg/dL High [address] [place] [address] Comment on above: Performed By: #### 4 [id number] ####[facility] (DEFAULT)[address] [place] [address] 91195 PTon 05-23-2021 INR Coag (PPP) [Relative time] 1.56 {INR} High 0.91-1.11 [facility] Comment on above: Performed By: #### 1 [id number], 5581636, 4007096, 3011054, 45933081, 2570362359 ####[facility] (DEFAULT)[address] [place] [address] PT 16.5 second(s) High 9.7-11.8 [facility] Comment on above: Performed By: #### 1 624560574, 2433710, 7491590, 8829560, 28861599, 8162564418 ####[facility] (DEFAULT)[address] [place] [address] Pharmacy Noteon 05-23-2021 Pharmacy Note Normal [facility] Provider Orderson 05-23-2021 Provider Orders [id number] #1.00OTGTIFF [facility] Telemetry Stripson Telemetry Strips [id number]#1 .00OTGTIFF [facility] .Auto Diff 1on 05-22-2021 Auto Tunica % 11 % Normal 1-12 [facility] Comment on above: Performed By: #### 7 670568, 0131979, 66541857, 9407247, 7555466799, 6517572701 ####[facility] (DEFAULT)[address] [place] [address] Baso Abs# 0.0 x10 Normal 0.0-0.2 [facility] Comment on above: Performed By: #### 7 420509, 2616917, 49653668, 7849864, 2519321681, 6259256548 ####[facility] (DEFAULT)[address] [place], [place] [address] Basophils/100 WBC (Bld) 0.3 % Normal 0.2-2.0 [facility] Comment on above: Performed By: #### 7 338041, 2787611, 78090714, 3255921, 6680961984, 0339236034 ####[facility] (DEFAULT)[address] [place] [address] Eos Abs# 0.1 x10 Normal 0.0-0.4 [facility] Comment on above: Performed By: #### 7 140372, 9010959, 30291753, 6059239, 3537244079, 4509585571 ####[facility] (DEFAULT)[address] [place] [address] 78602 Eosinophils/100 WBC (Bld) 1.7 % Normal 0.9-4.0 [facility] Comment on above: Performed By: #### 7 910456, 4580190, 19257835, 6328960, 1684189368, 2635577220 ####[facility] (DEFAULT)[address] [place] [address] 21805 Lymph Abs# 2.0 x10 Normal 1.3-2.9 [facility] Comment on above: Performed By: #### 7 333434, 2658829, 44254091, 8655655, 2236706835, 9286338639 ####[facility] (DEFAULT)[address] [place] [address] 14824 Lymphocytes/100 WBC (Bld) 29 % Normal 14-48 [facility] Comment on above: Performed By: #### 7 552734, 7233406, 95023445, 7533231, 3316905717, 2205289226 ####[facility] (DEFAULT)[address] [place] [address] 15003 Tunica Abs# 0.8 x10 Normal 0.0-0.8 [facility] Comment on above: Performed By: #### 7 104116, 5690041, 01596049, 2661052, 9480906905, 4340304596 ####[facility] (DEFAULT)[address] [place] [address] 75250 Neut Abs# 4.1 x10 Normal 1.5-9.2 [facility] Comment on above: Performed By: #### 7 813300, 8606187, 46889624, 0556583, 1319884565, 2519768343 ####[facility] (DEFAULT)[address] [place] [address] 74096 Neutrophils/100 WBC (Bld) 58 % Normal 44-88 [facility] Comment on above: Performed By: #### 7 924376, 5634474, 32562232, 8741164, 5583590949, 0156644778 ####[facility] (DEFAULT)[address] [place] [address] 90292 Ambulance Noteon 05-22-2021 Ambulance Note [id number]#1 .00OTGTIFF Normal [facility] CBC w/ Auto Diffon Erythrocyte distribution width (RBC) [Ratio] 14.4 % Normal 11.5-15.0 [facility] Comment on above: Performed By: #### 7 842774, 0314308, 69803611, 8972629, 0602489422, 4110675632 ####[facility] (DEFAULT)[address] [place] [address] Hematocrit (Bld) [Volume fraction] 40.7 % High 33.7-40.4 [facility] Comment on above: Performed By: #### 7 503610, 8108847, 07084247, 0744690, 6054667593, 6164587892 ####[facility] (DEFAULT)[address] [place] [address] Hemoglobin (Bld) [Mass/Vol] 12.5 g/dL Normal 11.3-15.9 [facility] Comment on above: Performed By: #### 7 989087, 2066824, 58787344, 7040346, 5532922722, 1283823143 ####[facility] (DEFAULT)[address] [place] [address] 72193 Instr WBC 7.0 x10 Invalid Interpretation Code [facility] Comment on above: Performed By: #### 7 863210, 7128360, 23274928, 5427346, 1239607101, 0989241150 ####[facility] (DEFAULT)[address] [place] [address] 87637 Man Diff? Auto Normal [facility] Comment on above: Performed By: #### 7 727843, 7434756, 76645377, 7822975, 1752305916, 8858766539 ####[facility] (DEFAULT)[address] [place] [address] MCH (RBC) [Entitic mass] 29 pg Normal 24-34 [facility] Comment on above: Performed By: #### 7 051858, 2241998, 68970135, 8198215, 8389701166, 9879303240 ####[facility] (DEFAULT)[address] [place] [address] MCHC (RBC) [Mass/Vol] 31 g/dL Normal 26-37 [facility] Comment on above: Performed By: #### 7 637624, 4909921, 31435244, 5333830, 3381309999, 8961810502 ####[facility] (DEFAULT)[address] [place] [address] MCV (RBC) [Entitic vol] 96 fL Normal 81-100 [facility] Comment on above: Performed By: #### 7 723936, 9805171, 32347315, 1560042, 2766695778, 4738114951 ####[facility] (DEFAULT)[address] [place] [address] Platelet 217 x10 Normal 138-427 [facility] Comment on above: Performed By: #### 7 130133, 2379230, 91652682, 9124273, 2013733085, 4370315005 ####[facility] (DEFAULT)[address] [place] [address] 35145 Platelet mean volume (Bld) [Entitic vol] 9.3 fL Normal 6.3-10.2 [facility] Comment on above: Performed By: #### 7 450049, 3180849, 03543143, 1778226, 1179871830, 5065849497 ####[facility] (DEFAULT)[address] [place] [address] RBC 4.25 x10 Normal 3.70-5.30 [facility] Comment on above: Performed By: #### 7 567074, 6620185, 12690436, 8746542, 2932610018, 4346574328 ####[facility] (DEFAULT)[address] [place] [address] WBC 7.0 x10 Normal 3.5-10.5 [facility] Comment on above: Performed By: #### 7 257015, 7295545, 35564103, 1851794, 6045471785, 5444528295 ####[facility] (DEFAULT)[address] [place], [place] [address] CMP Standardon 05-22-2021 Albumin [Mass/Vol] 2.8 g/dL Low 3.5-5.0 [facility] Comment on above: Performed By: #### 7 648607, 6180081, 31793299, 9134335, 3963346523, 6097117151 ####[facility] (DEFAULT)[address] [place] [address] Albumin/Globulin [Mass ratio] 1.0 {ratio} Low 1.4-2.6 [facility] Comment on above: Performed By: #### 7 424405, 5366082, 98337103, 4874808, 1676239644, 4033387101 ####[facility] (DEFAULT)[address] [place] [address] Alk Phos 75 IU/L Normal 32-91 [facility] Comment on above: Performed By: #### 7 003936, 9285156, 55066384, 9554129, 4671856344, 8404745462 ####[facility] (DEFAULT)[address] [place] [address] 05960 ALT [Catalytic activity/Vol] 11.0 U/L Low 14.0-54.0 [facility] Comment on above: Performed By: #### 7 051102, 2639081, 01640959, 7255400, 7774745910, 0119521711 ####[facility] (DEFAULT)[address] [place] [address] 02547 Anion gap [Moles/Vol] 13.0 mmol/L Normal 5.0-19.0 [facility] Comment on above: Performed By: #### 7 733394, 2301423, 38969323, 9445775, 6968188464, 6946539394 ####[facility] (DEFAULT)[address] [place] [address] 84501 AST [Catalytic activity/Vol] 14 U/L Low 15-41 [facility] Comment on above: Performed By: #### 7 057906, 2115476, 82180521, 1128584, 3440457448, 6765224856 ####[facility] (DEFAULT)[address] [place] [address] 14728 Bili Total 0.3 mg/dL Normal 0.3-1.2 [facility] Comment on above: Performed By: #### 7 970409, 9166384, 15956357, 1356722, 7676777351, 9520199264 ####[facility] (DEFAULT)[address] [place] [address] 03101 Calcium [Mass/Vol] 8.4 mg/dL Low 8.9-10.3 [facility] Comment on above: Performed By: #### 7 338629, 2412783, 57087690, 5576238, 9852178871, 9278161212 ####[facility] (DEFAULT)[address] [place] [address] 86470 Chloride [Moles/Vol] 100 mmol/L Low 101-111 [facility] Comment on above: Performed By: #### 7 098214, 1667618, 04341505, 8394040, 5705884349, 4488734656 ####[facility] (DEFAULT)[address] [place] [address] 76092 CO2 [Moles/Vol] 30 mmol/L Normal 21-32 [facility] Comment on above: Performed By: #### 7 020250, 9845422, 16899359, 4137803, 6274363622, 8800893506 ####[facility] (DEFAULT)[address] [place] [address] 29666 Creatinine [Mass/Vol] 0.86 mg/dL Normal 0.60-1.30 [facility] Comment on above: Performed By: #### 7 240182, 3601339, 81681877, 4639397, 7660984410, 8337621691 ####[facility] (DEFAULT)[address] [place] [address] 84108 eGFR AA >60 Invalid Interpretation Code [facility] Comment on above: Result Comment: Bad Credit Collector tia Kidney disease could be indicated at eGFRs of less than 60 ml/min/1.73m2. Kidney Failure is indicated at less than 15 ml/min/1.73m2 Performed By: #### 7 387617, 9664566, 62769022, 0411081, 5998667157, 5094100230 ####[facility] (DEFAULT)[address] [place] [address] 17295 eGFR Non AA >60 Invalid Interpretation Code [facility] Comment on above: Performed By: #### 7 279494, 3191470, 51839709, 1971841, 6052938414, 4541905826 ####[facility] (DEFAULT)[address] [place] [address] 16080 Globulin (S) [Mass/Vol] 2.8 g/dL Normal 1.5-4.3 [facility] Comment on above: Performed By: #### 7 [id number], [id number], [id number], [id number], [id number], [id number] ####[facility] (DEFAULT)[address] [place] [address] 94425 Glucose [Mass/Vol] 140.0 mg/dL High 74.0-118.0 [facility] Comment on above: Performed By: #### 7 [id number], [id number], [id number], [id number], [id number], [id number] ####[facility] (DEFAULT)[address] [place] [address] 69140 Osmolality 285 mOsm/L Invalid Interpretation Code [facility] Comment on above: Performed By: #### 7 [id number], 0156044, [id number], [id number], [id number], [id number] ####[facility] (DEFAULT)[address] [place] [address] 96701 Potassium [Moles/Vol] 3.3 mmol/L Low 3.6-5.1 [facility] Comment on above: Result Comment: IV T herapy Performed By: #### 7 [id number], 9686877, [id number], 6472512, [id number], [id number] ####[facility] (DEFAULT)[address] [place] [address] 28637 Protein [Mass/Vol] 5.6 g/dL Low 6.5-8.1 [facility] Comment on above: Performed By: #### 7 [id number], 4028584, [id number], [id number], [id number], [id number] ####[facility] (DEFAULT)[address] [place] [address] 28188 Sodium [Moles/Vol] 140.0 mmol/L Normal 136.0-144.0 [facility] Comment on above: Performed By: #### 7 349365, 8689006, 91423251, 0633733, 5110595826, 5327484190 ####[facility] (DEFAULT)[address] [place] [address] 00718 Urea nitrogen [Mass/Vol] 21 mg/dL Normal 8-26 [facility] Comment on above: Performed By: #### 7 715552, 6744238, 12388824, 2849933, 3630859400, 2825871594 ####[facility] (DEFAULT)[address] [place] [address] 87402 Urea nitrogen/Creatinine [Mass ratio] 24.0 mg/mg High 4.6-16.2 [facility] Comment on above: Performed By: #### 7 995385, 7125410, 38821339, 6114867, 3609221832, [id number] ####[facility] (DEFAULT)[address] [place] [address] 19983 Consultation/Specialist Note on 05-22-2021 Consultation/Specialis t Note Normal [facility] Extra Redon 05-22-2021 Tube Collected Yes Invalid Interpretation Code [facility] Comment on above: Performed By: #### 7 173169, 0715359, 02651945, 0735391, 2916564579, 2382962197 ####[facility] (DEFAULT)[address] [place] [address] 10255 Magnesiumon 05-22-2021 Magnesium [Mass/Vol] 1.55 mg/dL Low 1.80-2.50 [facility] Comment on above: Performed By: #### 7 738635, 5030324, 95807514, 9256306, 8006473302, 6261904051 ####[facility] (DEFAULT)[address] [place] [address] 32162 POCT Glucose Levelon 022 Glucose [Mass/Vol] 174 mg/dL High [address] [place] [address] Comment on above: Performed By: #### 4 [id number] ####[facility] (DEFAULT)[address] [place] [address] Glucose [Mass/Vol] 189 mg/dL High [address] [place] [address] Comment on above: Performed By: #### 4 [id number] ####[facility] (DEFAULT)[address] [place] [address] Glucose [Mass/Vol] 134 mg/dL High [address] [place] [address] Comment on above: Performed By: #### 4 [id number] ####[facility] (DEFAULT)[address] [place] [address] Glucose [Mass/Vol] 232 mg/dL High [address] [place] [address] Comment on above: Performed By: #### 4 [id number] ####[facility] (DEFAULT)[address] [place] [address] 57508 PTon 05-22-2021 INR Coag (PPP) [Relative time] 1.66 {INR} High 0.91-1.11 [facility] Comment on above: Performed By: #### 7 508605, 4555542, 18045598, 4757890, 0072978307, 4807418474 ####[facility] (DEFAULT)[address] [place] [address] PT 17.5 second(s) High 9.7-11.8 [facility] Comment on above: Performed By: #### 7 171863, 5616904, 61840139, 5775811, 1088935987, 3012062733 ####[facility] (DEFAULT)[address] [place] [address] 60277 Pharmacy Noteon 05-22-2021 Pharmacy Note Normal [facility] Progress Note - Nurseon 04-26 Progress Note - Nurse Normal [facility] Telemetry Stripson Telemetry Strips [id number] .[id number] Normal [facility] .Auto Diff 1on 05-21-2021 Auto Tunica % 9 % Normal -12 [facility] Comment on above: Performed By: #### 1 [id number], 5573188, 85658752, 8310201923, 6263826362, 0388313, 0096659 ####[facility] (DEFAULT)[address] [place] [address] 26454 Baso Abs# 0.0 x10 Normal 0.0-0.2 [facility] Comment on above: Performed By: #### 1 637749203, 6370647, 48376698, 4925586996, 6451098782, 4907927, 9820632 ####[facility] (DEFAULT)[address] [place] [address] 36449 Basophils/100 WBC (Bld) 0.1 % Low 0.2-2.0 [facility] Comment on above: Performed By: #### 1 290608104, 6730054, 36467832, 7977819554, 6605062990, 4350976, 4912285 ####[facility] (DEFAULT)[address] [place] [address] 55204 Eos Abs# 0.1 x10 Normal 0.0-0.4 [facility] Comment on above: Performed By: #### 1 437794113, 0692084, 16976364, 7772759335, 5637661284, 6655745, 4401459 ####[facility] (DEFAULT)[address] [place] [address] 13441 Eosinophils/100 WBC (Bld) 1.0 % Normal 0.9-4.0 [facility] Comment on above: Performed By: #### 1 551615524, 3670253, 70878541, 5581491013, 1610093096, 7337237, 6401501 ####[facility] (DEFAULT)[address] [place] [address] 33084 Lymph Abs# 2.3 x10 Normal 1.3-2.9 [facility] Comment on above: Performed By: #### 1 775584290, 0988455, 69140886, 5603304192, 9462491504, 7467245, 5717050 ####[facility] (DEFAULT)[address] [place] [address] 49294 Lymphocytes/100 WBC (Bld) 26 % Normal 14-48 [facility] Comment on above: Performed By: #### 1 473845851, 9506804, 27733984, 7910278398, 6569181657, 4684144, 7632037 ####[facility] (DEFAULT)[address] [place] [address] 53021 Tunica Abs# 0.8 x10 Normal 0.0-0.8 [facility] Comment on above: Performed By: #### 1 017060048, 2329070, 57787257, 1912920805, 5410310026, 8133666, 2631729 ####[facility] (DEFAULT)[address] [place] [address] 11572 Neut Abs# 5.7 x10 Normal 1.5-9.2 [facility] Comment on above: Performed By: #### 1 801058691, 0201183, 60752449, 2464977283, 0376490200, 9199699, 1333505 ####[facility] (DEFAULT)[address] [place] [address] 46554 Neutrophils/100 WBC (Bld) 64 % Normal 44-88 [facility] Comment on above: Performed By: #### 1 154790724, 1916521, 89406757, 6766090410, 1537911410, 7655933, 3556061 ####[facility] (DEFAULT)[address] [place] [address] 92814 BMP Standardon 05-21-2021 Anion gap [Moles/Vol] 15.0 mmol/L Normal 5.0-19.0 [facility] Comment on above: Performed By: #### 1 480271405, 0569763, 22192644, 8882087825, 2925919423, 3735212, 7863097 ####[facility] (DEFAULT)[address] [place] [address] 99051 Calcium [Mass/Vol] 8.7 mg/dL Low 8.9-10.3 [facility] Comment on above: Performed By: #### 1 337681641, 2916248, 22042855, 1174839300, 6820220306, 3818542, 2559043 ####[facility] (DEFAULT)[address] [place] [address] 35496 Chloride [Moles/Vol] 100 mmol/L Low 101-111 [facility] Comment on above: Performed By: #### 1 744536525, 4735620, 54222115, 4272054669, 5890634698, 8302158, 6388067 ####[facility] (DEFAULT)[address] [place] [address] 64165 CO2 [Moles/Vol] 23 mmol/L Normal 21-32 [facility] Comment on above: Performed By: #### 1 188447078, 3922167, 23733486, 9082870880, 2296517776, 0680682, 1292615 ####[facility] (DEFAULT)[address] [place] [address] 38361 Creatinine [Mass/Vol] 0.87 mg/dL Normal 0.60-1.30 [facility] Comment on above: Performed By: #### 1 047686428, 3737603, 32008767, 4557969848, 5666300099, 8173952, 6027252 ####[facility] (DEFAULT)[address] [place] [address] 99478 eGFR AA >60 Invalid Interpretation Code [facility] Comment on above: Result Comment: Bad Credit Collector tia Kidney disease could be indicated at eGFRs of less than 60 ml/min/1.73m2. Kidney Failure is indicated at less than 15 ml/min/1.73m2 Performed By: #### 1 330007779, 2189833, 04808837, 4141920063, 5861902883, 0499396, 4309221 ####[facility] (DEFAULT)[address] [place] [address] 03733 eGFR Non AA >60 Invalid Interpretation Code [facility] Comment on above: Performed By: #### 1 460582095, 5178479, 87012883, 9580726232, 2341995810, 3849662, 2357897 ####[facility] (DEFAULT)[address] [place] [address] 91262 Glucose [Mass/Vol] 165.0 mg/dL High 74.0-118.0 [facility] Comment on above: Performed By: #### 1 795025190, 3814524, 21492325, 4040840843, 2673204458, 3309519, 4024410 ####[facility] (DEFAULT)[address] [place] [address] 37791 Osmolality 275 mOsm/L Invalid Interpretation Code [facility] Comment on above: Performed By: #### 1 424015689, 7398534, 99020416, 4532694094, 5553420159, 9484696, 3087867 ####[facility] (DEFAULT)[address] [place] [address] 00669 Potassium [Moles/Vol] 4.2 mmol/L Normal 3.6-5.1 [facility] Comment on above: Result Comment: Pota ssium therapy Performed By: #### 1 220476591, 8982838, 05991991, 9756732056, 0583599773, 0116974, 3292154 ####[facility] (DEFAULT)[address] [place] [address] 71648 Sodium [Moles/Vol] 134.0 mmol/L Low 136.0-144.0 [facility] Comment on above: Performed By: #### 1 768924476, 1085062, 76390736, 0066864376, 1421651660, 1788754, 6493624 ####[facility] (DEFAULT)[address] [place] [address] 51737 Urea nitrogen [Mass/Vol] 21 mg/dL Normal 8-26 [facility] Comment on above: Performed By: #### 1 733039230, 0516627, 36223518, 3257406337, 6118907905, 7592232, 2652987 ####[facility] (DEFAULT)[address] [place] [address] 26374 Urea nitrogen/Creatinine [Mass ratio] 24.0 mg/mg High 4.6-16.2 [facility] Comment on above: Performed By: #### 1 902471371, 9904814, 19410982, 1008293108, 8647567822, 8209029, 3608809 ####[facility] (DEFAULT)[address] [place] [address] CBC w/ Auto Diffon Erythrocyte distribution width (RBC) [Ratio] 14.5 % Normal 11.5-15.0 [facility] Comment on above: Performed By: #### 1 298877841, 7186727, 89492098, 7118781427, 8097304844, 1163536, 2904076 ####[facility] (DEFAULT)[address] [place] [address] Hematocrit (Bld) [Volume fraction] 41.9 % High 33.7-40.4 [facility] Comment on above: Performed By: #### 1 224878212, 8925348, 82365039, 2165090474, 1031366649, 8649567, 6523805 ####[facility] (DEFAULT)[address] [place] [address] Hemoglobin (Bld) [Mass/Vol] 12.8 g/dL Normal 11.3-15.9 [facility] Comment on above: Performed By: #### 1 327791777, 1673810, 06439264, 9713513778, 9928673136, 2070797, 0731600 ####[facility] (DEFAULT)[address] [place] [address] Instr WBC 8.8 x10 Invalid Interpretation Code [facility] Comment on above: Performed By: #### 1 784801405, 7208315, 77783540, 6604482850, 7891809461, 8564781, 7337976 ####[facility] (DEFAULT)[address] [place] [address] Man Diff? Auto Normal [facility] Comment on above: Performed By: #### 1 980959938, 0788678, 20986751, 8248891149, 1727461313, 9058056, 3164568 ####[facility] (DEFAULT)[address] [place] [address] 85410 MCH (RBC) [Entitic mass] 29 pg Normal 24-34 [facility] Comment on above: Performed By: #### 1 902807965, 6605401, 25555515, 8192498979, 0551767689, 8305326, 4357519 ####[facility] (DEFAULT)[address] [place] [address] 24529 MCHC (RBC) [Mass/Vol] 30 g/dL Normal 26-37 [facility] Comment on above: Performed By: #### 1 902103028, 4304083, 43445236, 5368314642, 7235371423, 3156942, 7444279 ####[facility] (DEFAULT)[address] [place] [address] 73876 MCV (RBC) [Entitic vol] 95 fL Normal 81-100 [facility] Comment on above: Performed By: #### 1 954053385, 7063765, 54771167, 1310347199, 4786328784, 6244348, 2283187 ####[facility] (DEFAULT)[address] [place] [address] 53723 Platelet 228 x10 Normal 138-427 [facility] Comment on above: Performed By: #### 1 409819481, 2309779, 65784163, 9519389043, 2557201827, 4951587, 4456714 ####[facility] (DEFAULT)[address] [place] [address] 54760 Platelet mean volume (Bld) [Entitic vol] 9.6 fL Normal 6.3-10.2 [facility] Comment on above: Performed By: #### 1 355024163, 0369315, 06536704, 1137287169, 9069597472, 6266027, 0260377 ####[facility] (DEFAULT)[address] [place] [address] 66327 RBC 4.39 x10 Normal 3.70-5.30 [facility] Comment on above: Performed By: #### 1 153920093, 3014474, 03308090, 9818907768, 4488467443, 7838085, 9251826 ####[facility] (DEFAULT)[address] [place] [address] WBC 8.8 x10 Normal 3.5-10.5 [facility] Comment on above: Performed By: #### 1 431051235, 2740260, 00802204, 1285054333, 1196061834, 0942816, 7431252 ####[facility] (DEFAULT)[address] [place] [address] CMP Standardon 05-21-2021 Albumin [Mass/Vol] 3.2 g/dL Low 3.5-5.0 [facility] Comment on above: Performed By: #### 1 747223952, 6341001, 79431794, 3855360007, 6624050793, 9371521, 6497838 ####[facility] (DEFAULT)[address] [place] [address] Albumin/Globulin [Mass ratio] 1.1 {ratio} Low 1.4-2.6 [facility] Comment on above: Performed By: #### 1 652974224, 5654103, 52419275, 0177663973, 7383922604, 2404643, 3367418 ####[facility] (DEFAULT)[address] [place] [address] 07602 Alk Phos 86 IU/L Normal 32-91 [facility] Comment on above: Performed By: #### 1 202790910, 9120563, 52611452, 7197969952, 1246582943, 1088170, 6485313 ####[facility] (DEFAULT)[address] [place] [address] 80145 ALT [Catalytic activity/Vol] 12.0 U/L Low 14.0-54.0 [facility] Comment on above: Performed By: #### 1 211912036, 0348783, 49717259, 3712920092, 1212371601, 9537885, 7316027 ####[facility] (DEFAULT)[address] [place] [address] 67728 AST [Catalytic activity/Vol] 14 U/L Low 15-41 [facility] Comment on above: Performed By: #### 1 823950735, 1994643, 71225073, 5371978540, 9647355806, 7316421, 8950668 ####[facility] (DEFAULT)[address] [place] [address] 47593 Bili Total 0.6 mg/dL Normal 0.3-1.2 [facility] Comment on above: Performed By: #### 1 368200561, 4905730, 00942158, 9424784326, 5637710322, 3537066, 4287368 ####[facility] (DEFAULT)[address] [place] [address] 94322 Globulin (S) [Mass/Vol] 2.8 g/dL Normal 1.5-4.3 [facility] Comment on above: Performed By: #### 1 591551624, 1582775, 16311389, 9044517028, 1180341640, 5078311, 2653351 ####[facility] (DEFAULT)[address] [place] [address] 56319 Protein [Mass/Vol] 6.0 g/dL Low 6.5-8.1 [facility] Comment on above: Performed By: #### 1 830950715, 3735206, 90052803, 1912741019, 4971362344, 1291006, 6078671 ####[facility] (DEFAULT)[address] [place] [address] 16400 Extra Redon 05-21-2021 Tube Collected Yes Invalid Interpretation Code [facility] Comment on above: Performed By: #### 1 852106329, 7047690, 93035314, 3220694633, 6194064501, 4928375, 4258624 ####[facility] (DEFAULT)[address] [place] [address] 60221 Magnesiumon 05-21-2021 Magnesium [Mass/Vol] 1.60 mg/dL Low 1.80-2.50 [facility] Comment on above: Performed By: #### 1 618835159, 0326561, 87871538, 1989587947, 2298319932, 7486947, 2325779 ####[facility] (DEFAULT)[address] [place] [address] 50031 POCT Glucose Levelon 022 Glucose [Mass/Vol] 284 mg/dL High [address] [place] [address] Comment on above: Performed By: #### 4 967066715 ####[facility] (DEFAULT)[address] [place] [address] Glucose [Mass/Vol] 158 mg/dL High [address] [place] [address] Comment on above: Performed By: #### 4 [id number] ####[facility] (DEFAULT)[address] [place] [address] Glucose [Mass/Vol] 145 mg/dL High [address] [place] [address] Comment on above: Performed By: #### 4 831679053 ####[facility] (DEFAULT)[address] [place] [address] Glucose [Mass/Vol] 195 mg/dL High [address] [place] [address] Comment on above: Performed By: #### 4 436930175 ####[facility] (DEFAULT)[address] [place] [address] 65443 PTon 05-21-2021 INR Coag (PPP) [Relative time] 2.24 {INR} High 0.91-1.11 [facility] Comment on above: Performed By: #### 1 172554152, 5792023, 21937596, 5011120270, 4160336071, 5439493, 5548182 ####[facility] (DEFAULT)[address] [place] [address] PT 23.3 second(s) High 9.7-11.8 [facility] Comment on above: Performed By: #### 1 401153657, 6558551, 61373385, 3212725814, 8856678236, 7922380, 0523715 ####[facility] (DEFAULT)[address] [place] [address] 98534 Pharmacy Noteon 05-21-2021 Pharmacy Note Normal [facility] Progress Note - Nurseon 04-26 Progress Note - Nurse Normal [facility] .Auto Diff 1on 05-20-2021 Auto Tunica % 9 % Normal 1-12 [facility] Comment on above: Performed By: #### 2 611370, 4876400124, 1492528702, 4159823, 96324821, 8605717 ####[facility] (DEFAULT)[address] [place] [address] Baso Abs# 0.0 x10 Normal 0.0-0.2 [facility] Comment on above: Performed By: #### 2 961752, 7674091664, 7021754448, 0243339, 27821735, 1680211 ####[facility] (DEFAULT)[address] [place] [address] Basophils/100 WBC (Bld) 0.2 % Normal 0.2-2.0 [facility] Comment on above: Performed By: #### 2 079653, 5564409074, 3486292547, 1954255, 50209574, 9087533 ####[facility] (DEFAULT)[address] [place] [address] Eos Abs# 0.1 x10 Normal 0.0-0.4 [facility] Comment on above: Performed By: #### 2 502413, 9331260446, 8898666633, 2537240, 33806838, 2477497 ####[facility] (DEFAULT)[address] [place] [address] 65162 Eosinophils/100 WBC (Bld) 0.8 % Low 0.9-4.0 [facility] Comment on above: Performed By: #### 2 424966, 4023190562, 3960926476, 8334671, 34629426, 2995457 ####[facility] (DEFAULT)[address] [place] [address] 53742 Lymph Abs# 2.1 x10 Normal 1.3-2.9 [facility] Comment on above: Performed By: #### 2 746635, 7312335962, 9051641733, 8539613, 88095871, 1784369 ####[facility] (DEFAULT)[address] [place] [address] 09387 Lymphocytes/100 WBC (Bld) 23 % Normal 14-48 [facility] Comment on above: Performed By: #### 2 357997, 6474517923, 1275893940, 1674035, 35662952, 8409265 ####[facility] (DEFAULT)[address] [place] [address] Tunica Abs# 0.8 x10 Normal 0.0-0.8 [facility] Comment on above: Performed By: #### 2 174619, 0490673419, 9251721089, 1618092, 66869185, 6207762 ####[facility] (DEFAULT)[address] [place] [address] Neut Abs# 6.0 x10 Normal 1.5-9.2 [facility] Comment on above: Performed By: #### 2 548530, 2417908638, 7514332277, 2591419, 84151877, 8548634 ####[facility] (DEFAULT)[address] [place] [address] Neutrophils/100 WBC (Bld) 67 % Normal 44-88 [facility] Comment on above: Performed By: #### 2 410659, 3360778628, 2919411259, 2972024, 57652305, 1606673 ####[facility] (DEFAULT)[address] [place] [address] 72896 BMP Standardon 05-20-2021 Anion gap [Moles/Vol] 13.0 mmol/L Normal 5.0-19.0 [facility] Comment on above: Performed By: #### 2 375897, 8617127285, 7318843499, 9196378, 06678718, 7289472 ####[facility] (DEFAULT)[address] [place] [address] 32996 Calcium [Mass/Vol] 8.7 mg/dL Low 8.9-10.3 [facility] Comment on above: Performed By: #### 2 423493, 5692965110, 0021004404, 1053394, 61158660, 9328361 ####[facility] (DEFAULT)[address] [place] [address] Chloride [Moles/Vol] 101 mmol/L Normal 101-111 [facility] Comment on above: Performed By: #### 2 921419, 3986455659, 1813127484, 9294167, 26830825, 7871717 ####[facility] (DEFAULT)[address] [place] [address] CO2 [Moles/Vol] 23 mmol/L Normal 21-32 [facility] Comment on above: Performed By: #### 2 650549, 8028982123, 1361544936, 1612241, 27639754, 9017716 ####[facility] (DEFAULT)[address] [place] [address] Creatinine [Mass/Vol] 0.91 mg/dL Normal 0.60-1.30 [facility] Comment on above: Performed By: #### 2 353491, 1907746785, 8689108790, 6455004, 88292736, 6311812 ####[facility] (DEFAULT)[address] [place] [address] eGFR AA >60 Invalid Interpretation Code [facility] Comment on above: Result Comment: Bad Credit Collector tia Kidney disease could be indicated at eGFRs of less than 60 ml/min/1.73m2. Kidney Failure is indicated at less than 15 ml/min/1.73m2 Performed By: #### 2 631503, 7051610804, 1962292101, 7155479, 95005928, 1402819 ####[facility] (DEFAULT)[address] [place] [address] eGFR Non AA 59 mL/min/1.73m2 Invalid Interpretation Code [facility] Comment on above: Performed By: #### 2 395178, 2109644157, 6678200870, 4275264, 14345065, 1599741 ####[facility] (DEFAULT)[address] [place] [address] Glucose [Mass/Vol] 174.0 mg/dL High 74.0-118.0 [facility] Comment on above: Performed By: #### 2 817042, 0604512019, 0757488886, 2379558, 57485953, 5679651 ####[facility] (DEFAULT)[address] [place] [address] 92337 Osmolality 276 mOsm/L Invalid Interpretation Code [facility] Comment on above: Performed By: #### 2 272874, 7163133825, 5742419013, 9949888, 91504103, 9811532 ####[facility] (DEFAULT)[address] [place] [address] 15257 Potassium [Moles/Vol] 3.4 mmol/L Low 3.6-5.1 [facility] Comment on above: Performed By: #### 2 444146, 6655038961, 1864342236, 6033040, 66735466, 0714392 ####[facility] (DEFAULT)[address] [place] [address] 57797 Sodium [Moles/Vol] 134.0 mmol/L Low 136.0-144.0 [facility] Comment on above: Performed By: #### 2 456566, 1208747528, 2192724493, 8510880, 67008099, 4156484 ####[facility] (DEFAULT)[address] [place] [address] 40363 Urea nitrogen [Mass/Vol] 22 mg/dL Normal 10-20 [facility] Comment on above: Performed By: #### 2 589369, 0202687657, 9833875505, 6064116, 81551120, 3885014 ####[facility] (DEFAULT)[address] [place] [address] 03635 Urea nitrogen/Creatinine [Mass ratio] 24.0 mg/mg High 4.6-16.2 [facility] Comment on above: Performed By: #### 2 704586, 0798320255, 1662695878, 7439009, 30744411, 1306057 ####[facility] (DEFAULT)[address] [place] [address] 16149 BNP.on 05-20-2021 Natriuretic peptide B (Bld) [Mass/Vol] 754.0 pg/mL High 0.0-100.0 [facility] Comment on above: Result Comment: BNP results greater than 100 pg/mL are considered abnormal and suggestive of patients with CHF. Higher BNP concentrations measured in the first 72 hours after an acute coronary syndorme are associated with an increased risk of , myocardial infarction, and CHF. Performed By: #### 2 [id number], [id number], [id number], [id number], [id number], [id number] ####[facility] (DEFAULT)[address] [place] [address] 77969 C Urineon 05-20-2021 C Urine Normal [facility] Comment on above: Performed By: #### 6 [id number], [id number], [id number] ####[facility] (DEFAULT)[address] [place] [address] CBC w/ Auto Diffon Erythrocyte distribution width (RBC) [Ratio] 14.5 % Normal 11.5-15.0 [facility] Comment on above: Performed By: #### 2 [id number], [id number], [id number], [id number], [id number], [id number] ####[facility] (DEFAULT)[address] [place] [address] Hematocrit (Bld) [Volume fraction] 40.9 % High 33.7-40.4 [facility] Comment on above: Performed By: #### 2 [id number], [id number], [id number], [id number], [id number], [id number] ####[facility] (DEFAULT)[address] [place] [address] 86726 Hemoglobin (Bld) [Mass/Vol] 12.7 g/dL Normal 11.3-15.9 [facility] [facility] Comment on above: Performed By: #### 2 287029, [id number], 8188164269, 1507664, 65938379, 5304143 ####[facility] (DEFAULT)[address] [place] [address] Instr WBC 9.0 x10 Invalid Interpretation Code [facility] Comment on above: Performed By: #### 2 257834, [id number], 6036673680, 5767197, 70948465, 5891604 ####[facility] (DEFAULT)[address] [place] [address] 18067 Man Diff? Auto Normal [facility] Comment on above: Performed By: #### 2 325766, 0682132784, 7401742625, 1708969, 72517081, 7076560 ####[facility] (DEFAULT)[address] [place] [address] 12612 MCH (RBC) [Entitic mass] 30 pg Normal 24-34 [facility] Comment on above: Performed By: #### 2 795271, 9856221461, 0182537005, 0077272, 79625303, 6945695 ####[facility] (DEFAULT)[address] [place] [address] 50151 MCHC (RBC) [Mass/Vol] 31 g/dL Normal 26-37 [facility] Comment on above: Performed By: #### 2 470955, 2800683333, 7491259795, 8556173, 00478587, 0390937 ####[facility] (DEFAULT)[address] [place] [address] 30058 MCV (RBC) [Entitic vol] 95 fL Normal 81-100 [facility] Comment on above: Performed By: #### 2 085236, 8169917010, 5781497466, 3830700, 92681768, 5197903 ####[facility] (DEFAULT)[address] [place] [address] 85285 Platelet 216 x10 Normal 138-427 [facility] Comment on above: Performed By: #### 2 938513, 9330776034, 0102743140, 7371897, 57760878, 4492996 ####[facility] (DEFAULT)[address] [place] [address] 69469 Platelet mean volume (Bld) [Entitic vol] 9.2 fL Normal 6.3-10.2 [facility] Comment on above: Performed By: #### 2 163869, 6597399836, 7249780085, 7331623, 61938112, 9428907 ####[facility] (DEFAULT)[address] [place] [address] 96334 RBC 4.29 x10 Normal 3.70-5.30 [facility] Comment on above: Performed By: #### 2 094431, 6956639475, 1224157573, 2354009, 23010078, 5479619 ####[facility] (DEFAULT)[address] [place] [address] WBC 9.0 x10 Normal 3.5-10.5 [facility] Comment on above: Performed By: #### 2 933949, 5732325216, 4480916218, 4959117, 19764052, 0056803 ####[facility] (DEFAULT)[address] [place] [address] ED Note-Nursingon 05-20-2021 ED Note-Nursing Results faxed to 2 [facility] admitted as observation. Normal [facility] Magnesiumon 05-20-2021 Magnesium [Mass/Vol] 1.49 mg/dL Low 1.80-2.50 [facility] Comment on above: Performed By: #### 2 991423, 4648226431, 0062990557, 7006731, 52840120, 6417977 ####[facility] (DEFAULT)[address] [place] [address] 37833 POCT Glucose Levelon 022 Glucose [Mass/Vol] 174 mg/dL High [address] [place] [address] Comment on above: Performed By: #### 4 [id number] ####[facility] (DEFAULT)[address] [place] [address] Glucose [Mass/Vol] 175 mg/dL High [address] [place] [address] Comment on above: Performed By: #### 4 [id number] ####[facility] (DEFAULT)[address] [place] [address] 29378 Glucose [Mass/Vol] 185 mg/dL High [address] Comment on above: Performed By: #### 4 [id number] ####[facility] (DEFAULT)[address] [place] [address] 99614 Glucose [Mass/Vol] 166 mg/dL High 74118 [facility] Comment on above: Performed By: #### 4 [id number] ####[facility] (DEFAULT)[address] [place] [address] PTon 05-20-2021 INR Coag (PPP) [Relative time] 3.32 {INR} High 0.91-1.11 [facility] Comment on above: Performed By: #### 2 975386, 6702785022, 2431001228, 1184546, 19427213, 3560362 ####[facility] (DEFAULT)[address] [place] [address] PT 33.9 second(s) High 9.7-11.8 [facility] Comment on above: Performed By: #### 2 675029, 1594294819, 8982026638, 5817078, 36547948, 4498769 ####[facility] (DEFAULT)[address] [place] [address] Pharmacy Noteon 05-20-2021 Pharmacy Note Normal [facility] XR Chest 2 Viewson XR Chest 2 Views Normal [facility] .Auto Diff 1on 05-19-2021 Auto [place] % 9 % Normal 1-12 [facility] Comment on above: Performed By: #### 1 [id number], 5669622, 8835850, 9074858085, 88789336 ####[facility] (DEFAULT)[address] [place] [address] Baso Abs# 0.0 x10 Normal 0.0-0.2 [facility] Comment on above: Performed By: #### 1 821932861, 7744682, 9553516, 7147310668, 70742372 ####[facility] (DEFAULT)[address] [place] [address] Basophils/100 WBC (Bld) 0.1 % Low 0.2-2.0 [facility] Comment on above: Performed By: #### 1 914693193, 8541434, 7629175, 5235426496, 16811594 ####[facility] (DEFAULT)[address] [place] [address] Eos Abs# 0.0 x10 Normal 0.0-0.4 [facility] Comment on above: Performed By: #### 1 820485778, 6395696, 6074604, 5158401188, 41294038 ####[facility] (DEFAULT)[address] [place] [address] 38040 Eosinophils/100 WBC (Bld) 0.4 % Low 0.9-4.0 [facility] Comment on above: Performed By: #### 1 991568634, 1243085, 8875269, 4114296161, 16820066 ####[facility] (DEFAULT)[address] [place] [address] 06927 Lymph Abs# 1.8 x10 Normal 1.3-2.9 [facility] Comment on above: Performed By: #### 1 699332360, 7321045, 0684629, 8796217772, 66197456 ####[facility] (DEFAULT)[address] [place] [address] 90993 Lymphocytes/100 WBC (Bld) 17 % Normal 14-48 [facility] Comment on above: Performed By: #### 1 103522936, 7454482, 2003315, 2721694182, 11841653 ####[facility] (DEFAULT)[address] [place] [address] 97402 [place] Abs# 0.9 x10 High 0.0-0.8 [facility] Comment on above: Performed By: #### 1 228607526, 8527762, 5438209, 1626654797, 57372342 ####[facility] (DEFAULT)[address] [place] [address] 51192 Neut Abs# 8.0 x10 Normal 1.5-9.2 [facility] Comment on above: Performed By: #### 1 310822826, 4715211, 1486821, 0711959963, 01751178 ####[facility] (DEFAULT)[address] [place] [address] 16315 Neutrophils/100 WBC (Bld) 74 % Normal 44-88 [facility] Comment on above: Performed By: #### 1 820303643, 9448907, 6329733, 2583896828, 96463696 ####[facility] (DEFAULT)[address] [place] [address] 23696 BMP Standardon 05-19-2021 Anion gap [Moles/Vol] 17.0 mmol/L Normal 5.0-19.0 [facility] Comment on above: Performed By: #### 1 242151755, 1773629, 8121959, 5336349822, 74932832 ####[facility] (DEFAULT)[address] [place] [address] 95046 Calcium [Mass/Vol] 8.8 mg/dL Low 8.9-10.3 [facility] Comment on above: Performed By: #### 1 309682681, 5150873, 9111466, 3649049943, 46425267 ####[facility] (DEFAULT)[address] [place] [address] 69206 Chloride [Moles/Vol] 103 mmol/L Normal 101-111 [facility] Comment on above: Performed By: #### 1 796230044, 7194360, 8667492, 1584808592, 78558698 ####[facility] (DEFAULT)[address] [place] [address] 57574 CO2 [Moles/Vol] 24 mmol/L Normal 21-32 [facility] Comment on above: Performed By: #### 1 108592691, 7935343, 3877109, 1953488765, 16422205 ####[facility] (DEFAULT)[address] [place] [address] 14950 Creatinine [Mass/Vol] 0.89 mg/dL Normal 0.60-1.30 [facility] Comment on above: Performed By: #### 1 846920379, 9088021, 8871887, 5441043794, 86801163 ####[facility] (DEFAULT)[address] [place] [address] 38152 eGFR AA >60 Invalid Interpretation Code [facility] Comment on above: Result Comment: Bad Credit Collector tia Kidney disease could be indicated at eGFRs of less than 60 ml/min/1.73m2. Kidney Failure is indicated at less than 15 ml/min/1.73m2 Performed By: #### 1 362679556, 4605070, 0204523, 5937577258, 68646108 ####[facility] (DEFAULT)[address] [place] [address] 31607 eGFR Non AA >60 Invalid Interpretation Code [facility] Comment on above: Performed By: #### 1 775421432, 9470334, 5006498, 5017604192, 32587685 ####[facility] (DEFAULT)[address] [place] [address] 69553 Glucose [Mass/Vol] 172.0 mg/dL High 74.0-118.0 [facility] Comment on above: Performed By: #### 1 640527435, 7892711, 2553117, 3293816133, 06797182 ####[facility] (DEFAULT)[address] [place] [address] 89935 Osmolality 286 mOsm/L Invalid Interpretation Code [facility] Comment on above: Performed By: #### 1 615289842, 1110562, 4420655, 2970670326, 76282351 ####[facility] (DEFAULT)[address] [place] [address] 75155 Potassium [Moles/Vol] 3.6 mmol/L Normal 3.6-5.1 [facility] Comment on above: Result Comment: Nel ent on IV Therapy Performed By: #### 1 494336685, 8879904, 6826166, 9228980561, 55933073 ####[facility] (DEFAULT)[address] [place] [address] 91013 Sodium [Moles/Vol] 140.0 mmol/L Normal 136.0-144.0 [facility] Comment on above: Performed By: #### 1 045952535, 2626814, 8073815, 8057790751, 96194759 ####[facility] (DEFAULT)[address] [place] [address] 08322 Urea nitrogen [Mass/Vol] 21 mg/dL Normal 8-26 [facility] Comment on above: Performed By: #### 1 107151467, 9200578, 4921626, 0816563118, 74743351 ####[facility] (DEFAULT)[address] [place] [address] Urea nitrogen/Creatinine [Mass ratio] 24.0 mg/mg High 4.6-16.2 [facility] Comment on above: Performed By: #### 1 453653668, 9949925, 5203108, 8979944671, 72931948 ####[facility] (DEFAULT)[address] [place] [address] CBC w/ Auto Diffon Erythrocyte distribution width (RBC) [Ratio] 14.4 % Normal 11.5-15.0 [facility] Comment on above: Performed By: #### 1 137215263, 2849218, 8684951, 7026243182, 18701833 ####[facility] (DEFAULT)[address] [place] [address] Hematocrit (Bld) [Volume fraction] 42.0 % High 33.7-40.4 [facility] Comment on above: Performed By: #### 1 208362134, 1908859, 9615480, 3559559649, 35746768 ####[facility] (DEFAULT)[address] [place] [address] Hemoglobin (Bld) [Mass/Vol] 12.8 g/dL Normal 11.3-15.9 [facility] Comment on above: Result Comment: IV T herapy Performed By: #### 1 496248082, 0686015, 4153781, 0294686631, 49780381 ####[facility] (DEFAULT)[address] [place] [address] Instr WBC 10.8 x10 Invalid Interpretation Code [facility] Comment on above: Performed By: #### 1 738727572, 3088388, 6787947, 4864968099, 29161498 ####[facility] (DEFAULT)[address] [place] [address] Man Diff? Auto Normal [facility] Comment on above: Performed By: #### 1 109643186, 4268984, 3890427, 7850812833, 37061666 ####[facility] (DEFAULT)[address] [place] [address] 41176 MCH (RBC) [Entitic mass] 29 pg Normal 24-34 [facility] Comment on above: Performed By: #### 1 398882760, 1430822, 6915603, 6741577312, 51674784 ####[facility] (DEFAULT)[address] [place] [address] MCHC (RBC) [Mass/Vol] 30 g/dL Normal 26-37 [facility] Comment on above: Performed By: #### 1 070143379, 4224513, 1404357, 4566460074, 67562727 ####[facility] (DEFAULT)[address] [place] [address] MCV (RBC) [Entitic vol] 96 fL Normal 81-100 [facility] Comment on above: Performed By: #### 1 839600611, 9491459, 2607835, 3943035366, 48938956 ####[facility] (DEFAULT)[address] [place] [address] Platelet 201 x10 Normal 138-427 [facility] Comment on above: Performed By: #### 1 226575624, 9091346, 7596782, 9786093584, 57593858 ####[facility] (DEFAULT)[address] [place] [address] Platelet mean volume (Bld) [Entitic vol] 9.4 fL Normal 6.3-10.2 [facility] Comment on above: Performed By: #### 1 054736624, 6555905, 5503826, 9251296091, 38921451 ####[facility] (DEFAULT)[address] [place] [address] RBC 4.38 x10 Normal 3.70-5.30 [facility] Comment on above: Performed By: #### 1 874605089, 3675262, 2885228, 3807969714, 29302195 ####[facility] (DEFAULT)[address] [place] [address] 81245 WBC 10.8 x10 High 3.5-10.5 [facility] Comment on above: Performed By: #### 1 422866310, 7342151, 2419941, 0041558651, 26748795 ####[facility] (DEFAULT)[address] [place] [address] 83008 Extra [place] 05-19-2021 Tube Collected Yes Invalid Interpretation Code [facility] Comment on above: Performed By: #### 1 407357339, 8784391, 8208985, 9849962665, 13540215 ####[facility] (DEFAULT)[address] [place] [address] 76536 Tube Collected Yes Invalid Interpretation Code [facility] Comment on above: Performed By: #### 5 797543894, 5268491561 ####[facility] (DEFAULT)[address] [place] [address] 13311 Nutrition Noteon 05-19-2021 Nutrition Note Normal [facility] POCT Glucose Levelon 022 Glucose [Mass/Vol] 196 mg/dL High [address] Comment on above: Performed By: #### 4 [id number] ####[facility] (DEFAULT)[address] [place] [address] 21388 Glucose [Mass/Vol] 162 mg/dL High 74118 [facility] Comment on above: Performed By: #### 4 968104451 ####[facility] (DEFAULT)[address] [place] [address] 30542 Glucose [Mass/Vol] 200 mg/dL High [address] Comment on above: Performed By: #### 4 [id number] ####[facility] (DEFAULT)[address] [place] [address] 28431 PTon 05-19-2021 INR Coag (PPP) [Relative time] {INR} Critically abnormal 0.91-1.11 [facility] Comment on above: Result Comment: Resu lts Called To Nancy on 2S By BRYN And Read Back For Confirmation On 05/19/2021 07:25:12 EDT. Performed By: #### 1 973942640, 5317992, 0598620, 7027910734, 45090390 ####[facility] (DEFAULT)[address] [place] [address] 08803 PT Coag (PPP) [Time] s Critically abnormal 9.7-11.8 [facility] Comment on above: Result Comment: Resu lts Called To Nancy on 2S By BRYN And Read Back For Confirmation On 05/19/2021 07:25:33 EDT. Performed By: #### 1 515491563, 0934590, 2276863, 0956952063, 31168581 ####[facility] (DEFAULT)[address] [place] [address] Pharmacy Noteon 05-19-2021 Pharmacy Note Normal [facility] Telemetry Stripson Telemetry Strips [id number] .[id number] Normal [facility] TnI HSon 05-19-2021 Troponin I High Sensitivity 69 pg/mL Critically abnormal <=15 [facility] Comment on above: Result Comment: Elev ated hsTnI 69 result called and read back ok to: MICHAEL PÉREZ ON 2S at: 15:44:03 05/19/2021 by: [place] Baseline Delta 1Hr (Note pg/mL=ng/L) <20pg/mL 50-60% >20pg/mL 20%Female Baseline Delta 1Hr <15pg/mL 50-60% >15pg/mL 20%Other Baseline Delta 1Hr <18ng/mL 50-60% >18ng/mL 20%([employer] [employer] Guidelines September 2017) Performed By: #### 5 [id number], [id number] ####[facility] (DEFAULT)[address] [place] [address] 99891 .Auto Diff 1on 05-18-2021 Auto [place] % 7 % Normal 1-12 [facility] Comment on above: Performed By: #### 2 063727, 0108198, 0390265, 1751407164, 2942090516, 06524145, 5756369103, 6150634286 ####[facility] (DEFAULT)[address] [place] [address] 05296 Baso Abs# 0.0 x10 Normal 0.0-0.2 [facility] Comment on above: Performed By: #### 2 453710, 4539007, 0121755, 1547019316, 6288303278, 19937520, 0874340890, 5972947236 ####[facility] (DEFAULT)[address] [place] [address] 66665 Basophils/100 WBC (Bld) 0.2 % Normal 0.2-2.0 [facility] Comment on above: Performed By: #### 2 813519, 9548558, 3126409, 1288008963, 1832697381, 00852704, 9085737183, 3662698628 ####[facility] (DEFAULT)[address] [place] [address] 89666 Eos Abs# 0.0 x10 Normal 0.0-0.4 [facility] Comment on above: Performed By: #### 2 269159, 8423012, 6077567, 2480836130, 4767310344, 94184468, 9805848439, 4751403008 ####[facility] (DEFAULT)[address] [place] [address] 20020 Eosinophils/100 WBC (Bld) 0.3 % Low 0.9-4.0 [facility] Comment on above: Performed By: #### 2 636507, 6584386, 6585955, 1292013944, 5412441009, 06370188, 4097719287, 8949613021 ####[facility] (DEFAULT)[address] [place] [address] 16051 Lymph Abs# 1.6 x10 Normal 1.3-2.9 [facility] Comment on above: Performed By: #### 2 512055, 6451317, 6527122, 5888701938, 7828932404, 11735455, 9219751546, 3395134658 ####[facility] (DEFAULT)[address] [place] [address] Lymphocytes/100 WBC (Bld) 16 % Normal 14-48 [facility] Comment on above: Performed By: #### 2 409753, 7442479, 2844767, 4962727784, 7429321513, 77304698, 6530114563, 9601598858 ####[facility] (DEFAULT)[address] [place] [address] [place] Abs# 0.7 x10 Normal 0.0-0.8 [facility] Comment on above: Performed By: #### 2 320405, 4544191, 5562962, 1341104036, 4880833381, 62162810, 1643561805, 3365713877 ####[facility] (DEFAULT)[address] [place] [address] Neut Abs# 7.4 x10 Normal 1.5-9.2 [facility] Comment on above: Performed By: #### 2 900653, 9753449, 8532955, 4858523655, 0953629804, 84862680, 7238175077, 8906759055 ####[facility] (DEFAULT)[address] [place] [address] Neutrophils/100 WBC (Bld) 76 % Normal 44-88 [facility] Comment on above: Performed By: #### 2 638083, 3502037, 4538032, 6787002234, 5009190387, 58420382, 1522276638, 3613492823 ####[facility] (DEFAULT)[address] [place] [address] .QC Respiratory Panel 2.1 (B ioFire)on 05-18-2021 Internal Control-Resp Panel 2.1(BioFire) Pass Normal [facility] Comment on above: Order Comment: Order ed by Rod.[[id number]] Performed By: #### 6 [id number] ####[facility] (DEFAULT)[address] [place] [address] BNP.on 05-18-2021 Natriuretic peptide B (Bld) [Mass/Vol] 1060.0 pg/mL High 0.0-100.0 [facility] Comment on above: Result Comment: BNP results greater than 100 pg/mL are considered abnormal and suggestive of patients with CHF. Higher BNP concentrations measured in the first 72 hours after an acute coronary syndorme are associated with an increased risk of , myocardial infarction, and CHF. Performed By: #### 2 869079, 3390550, 1052328, 2799352045, 8525952783, 28358136, 7570283359, 7281368376 ####[facility] (DEFAULT)[address] [place] [address] CBC w/ Auto Diffon Erythrocyte distribution width (RBC) [Ratio] 14.8 % Normal 11.5-15.0 [facility] Comment on above: Performed By: #### 2 097487, 4679284, 7477784, 2224684327, 3924132280, 04339678, 4316114611, 8031671019 ####[facility] (DEFAULT)[address] [place] [address] 74432 Hematocrit (Bld) [Volume fraction] 49.3 % High 33.7-40.4 [facility] Comment on above: Performed By: #### 2 955725, 1120506, 5577705, 2072987349, 9315862176, 04356110, 7348503734, 1653640001 ####[facility] (DEFAULT)[address] [place] [address] 49102 Hemoglobin (Bld) [Mass/Vol] 15.1 g/dL Normal 11.3-15.9 [facility] Comment on above: Performed By: #### 2 260681, 4933437, 4771927, 4402370024, 7996620420, 61363436, 3595724387, 2160274707 ####[facility] (DEFAULT)[address] [place] [address] 71976 Instr WBC 9.7 x10 Invalid Interpretation Code [facility] Comment on above: Performed By: #### 2 294656, 9955645, 2412339, 2724322147, 2992604948, 39551585, 6739489463, 8283000823 ####[facility] (DEFAULT)[address] [place] [address] Man Diff? Auto Normal [facility] Comment on above: Performed By: #### 2 128607, 4117077, 1985574, 1622294543, 3386554627, 43554062, 3447349883, 9140488119 ####[facility] (DEFAULT)[address] [place] [address] MCH (RBC) [Entitic mass] 29 pg Normal 24-34 [facility] Comment on above: Performed By: #### 2 069996, 5285639, 3869143, 0706989931, 3830352649, 41989643, 2310642747, 9235305431 ####[facility] (DEFAULT)[address] [place] [address] MCHC (RBC) [Mass/Vol] 31 g/dL Normal 26-37 [facility] Comment on above: Performed By: #### 2 622964, 1500306, 7388861, 5564078428, 9707207148, 63212536, 9065303391, 5871354016 ####[facility] (DEFAULT)[address] [place] [address] MCV (RBC) [Entitic vol] 96 fL Normal 81-100 [facility] Comment on above: Performed By: #### 2 345494, 3563149, 5653185, 1630976502, 6032961424, 47956626, 0872097577, 2263557364 ####[facility] (DEFAULT)[address] [place] [address] 77855 Platelet 256 x10 Normal 138-427 [facility] Comment on above: Performed By: #### 2 542923, 7074258, 8649322, 7784545748, 7292344090, 11851654, 4371043761, 5653680736 ####[facility] (DEFAULT)[address] [place] [address] 90843 Platelet mean volume (Bld) [Entitic vol] 9.2 fL Normal 6.3-10.2 [facility] Comment on above: Performed By: #### 2 164597, 2977224, 9466348, 1674829250, 7463168826, 41245287, 6894704443, 6362697322 ####[facility] (DEFAULT)[address] [place] [address] 47398 RBC 5.14 x10 Normal 3.70-5.30 [facility] Comment on above: Performed By: #### 2 071467, 0868863, 8963736, 7740571252, 7896163852, 06348127, 0695058700, 3230537751 ####[facility] (DEFAULT)[address] [place] [address] 93884 WBC 9.7 x10 Normal 3.5-10.5 [facility] Comment on above: Performed By: #### 2 329627, 8993075, 3462835, 3209682759, 4871788986, 42620139, 1491812601, 1940451654 ####[facility] (DEFAULT)[address] [place] [address] 33353 CMP Standardon 05-18-2021 Albumin [Mass/Vol] 4.2 g/dL Normal 3.5-5.0 [facility] Comment on above: Performed By: #### 2 605434, 4001748, 6252657, 8420899547, 2976439585, 57548049, 5349323070, 7746918810 ####[facility] (DEFAULT)[address] [place] [address] 99720 Albumin/Globulin [Mass ratio] 1.2 {ratio} Low 1.4-2.6 [facility] Comment on above: Performed By: #### 2 397449, 9861929, 3777252, 4666388322, [id number], 53333986, [id number], [id number] ####[facility] (DEFAULT)[address] [place] [address] [id number] Alk Phos 118 IU/L High 32-91 [facility] Comment on above: Performed By: #### 2 283261, 1272610, 3299616, [id number], [id number], 11586754, [id number], [id number] ####[facility] (DEFAULT)[address] [place] [address] 94338 ALT [Catalytic activity/Vol] 15.0 U/L Normal 14.0-54.0 [facility] Comment on above: Performed By: #### 2 536922, 5520486, 3630895, [id number], [id number], 08561411, [id number], [id number] ####[facility] (DEFAULT)[address] [place] [address] 11573 Anion gap [Moles/Vol] 17.0 mmol/L Normal 5.0-19.0 [facility] Comment on above: Performed By: #### 2 018538, 4407087, 4014775, [id number], [id number], 56421564, [id number], [id number] ####[facility] (DEFAULT)[address] [place] [address] AST [Catalytic activity/Vol] 21 U/L Normal 15-41 [facility] Comment on above: Performed By: #### 2 036617, 3523457, 4869539, 5973184893, 3344707964, 03704828, 6513105518, 2071368764 ####[facility] (DEFAULT)[address] [place] [address] 39345 Bili Total 0.6 mg/dL Normal 0.3-1.2 [facility] Comment on above: Performed By: #### 2 806612, 8934459, 2030831, 6278138668, 3862695153, 19203695, 0899158671, 2201788985 ####[facility] (DEFAULT)[address] [place] [address] 93702 Calcium [Mass/Vol] 9.5 mg/dL Normal 8.9-10.3 [facility] Comment on above: Performed By: #### 2 491887, 7551840, 1434653, 8511584261, 5968588973, 42294009, 3627128453, 3616602799 ####[facility] (DEFAULT)[address] [place] [address] Chloride [Moles/Vol] 103 mmol/L Normal 101-111 [facility] Comment on above: Performed By: #### 2 053350, 8882088, 9983281, 3918588942, 0788957343, 14034421, 8452320128, 2342140072 ####[facility] (DEFAULT)[address] [place] [address] CO2 [Moles/Vol] 23 mmol/L Normal 21-32 [facility] Comment on above: Performed By: #### 2 339379, 1551199, 9064381, 2821520674, 0293309309, 18974349, 5493706101, 6252064580 ####[facility] (DEFAULT)[address] [place] [address] Creatinine [Mass/Vol] 0.98 mg/dL Normal 0.60-1.30 [facility] Comment on above: Performed By: #### 2 035538, 2833815, 1563097, 8888146926, 5442073985, 04273224, 4123218022, 7599511768 ####[facility] (DEFAULT)[address] [place] [address] eGFR AA >60 Invalid Interpretation Code [facility] Comment on above: Result Comment: Bad Credit Collector tia Kidney disease could be indicated at eGFRs of less than 60 ml/min/1.73m2. Kidney Failure is indicated at less than 15 ml/min/1.73m2 Performed By: #### 2 716018, 5838801, 5298261, 4783399800, 8797648156, 70102860, 5734684662, 3139677055 ####[facility] (DEFAULT)[address] [place] [address] eGFR Non AA 54 mL/min/1.73m2 Invalid Interpretation Code [facility] Comment on above: Performed By: #### 2 606391, 8538600, 9274559, 0171644210, 8935606062, 26412122, 0216448804, 2296751385 ####[facility] (DEFAULT)[address] [place] [address] 63823 Globulin (S) [Mass/Vol] 3.6 g/dL Normal 1.5-4.3 [facility] Comment on above: Performed By: #### 2 766966, 2165950, 2495553, 0281058153, 4546249888, 35934450, 8401638018, 5833057932 ####[facility] (DEFAULT)[address] [place] [address] 31013 Glucose [Mass/Vol] 198.0 mg/dL High 74.0-118.0 [facility] Comment on above: Performed By: #### 2 926313, 5986833, 0547928, 5460129317, 8551273403, 66978666, 3543788607, 1242772696 ####[facility] (DEFAULT)[address] [place] [address] 76087 Osmolality 287 mOsm/L Invalid Interpretation Code [facility] Comment on above: Performed By: #### 2 278743, 9101969, 6588761, 5731355698, 9412062258, 02315951, 7950837454, 2919144507 ####[facility] (DEFAULT)[address] [place] [address] 21468 Potassium [Moles/Vol] 4.3 mmol/L Normal 3.6-5.1 [facility] Comment on above: Performed By: #### 2 179325, 6420191, 4235396, 2813398166, 8373773048, 39219332, 7174926126, 7267842097 ####[facility] (DEFAULT)[address] [place] [address] 55127 Protein [Mass/Vol] 7.8 g/dL Normal 6.5-8.1 [facility] Comment on above: Performed By: #### 2 259228, 8931570, 3176126, 2692798887, 6451493434, 28701452, 8601451532, 7057955673 ####[facility] (DEFAULT)[address] [place] [address] 90906 Sodium [Moles/Vol] 139.0 mmol/L Normal 136.0-144.0 [facility] Comment on above: Performed By: #### 2 468106, 9139349, 2645663, 8875702336, 4092888506, 04387759, 1596397861, 1657868321 ####[facility] (DEFAULT)[address] [place] [address] 64067 Urea nitrogen [Mass/Vol] 24 mg/dL Normal 8-26 [facility] Comment on above: Performed By: #### 2 327769, 9098023, 7330457, 9417358907, 9222878251, 96235763, 4911792990, 6910179088 ####[facility] (DEFAULT)[address] [place] [address] 17572 Urea nitrogen/Creatinine [Mass ratio] 24.0 mg/mg High 4.6-16.2 [facility] Comment on above: Performed By: #### 2 415298, 9657559, 6950729, 3976825970, 7585387946, 35413353, 4326174502, 3261696093 ####[facility] (DEFAULT)[address] [place] [address] 42252 Coding Summaryon 05-18-2021 Coding Summary [facility] ED Clinical Summaryon 2021 ED Clinical Summary [facility] ED Note-Nursingon 05-18-2021 ED Note-Nursing [facility] ED Note-Nursing Pt soiled with stool and urine upon arrival to ED. 2 RNs at bedside cleaning pt, changing linens, and gown. Pt states she has been laying on the couch for a couple days . Pt states she has been eating. Stool soiled down b/l legs and on pants. [facility] ED Patient Education Noteon 05-18-2021 ED Patient Education Note Education Materials [facility] ED Patient Summaryon 022 ED Patient Summary Normal [facility] Extra Greyon 05-18-2021 Tube Collected Yes Invalid Interpretation Code [facility] Comment on above: Performed By: #### 2 803967, 9964876, 4040208, 8246482610, 1169142220, 72666002, 5327724062, 2756886365 ####[facility] (DEFAULT)[address] [place] [address] 67007 Magnesiumon 05-18-2021 Magnesium [Mass/Vol] 1.58 mg/dL Low 1.80-2.50 [facility] Comment on above: Performed By: #### 2 832235, 5794154, 0991620, 8337365058, 1687876107, 46516233, 6283711104, 9331198705 ####[facility] (DEFAULT)[address] [place] [address] 19923 PTon 05-18-2021 INR Coag (PPP) [Relative time] {INR} Critically abnormal 0.91-1.11 [facility] Comment on above: Result Comment: Resu lts Called To Marce Edmond in ER By Cherry Sterling And Read Back For Confirmation On 05/18/2021 18:11:06 EDT.Patient specimen and controls reran to confirm. - JJ Performed By: #### 2 315082, 3745012, 0268853, 5908545502, 1703241411, 69711710, 7608531861, 1528880526 ####[facility] (DEFAULT)[address] [place] [address] 14323 PT Coag (PPP) [Time] s Critically abnormal 9.7-11.8 [facility] Comment on above: Result Comment: Resu lts Called To Marce Edmond in ER By Cherry Sterling And Read Back For Confirmation On 05/18/2021 18:11:06 EDT.Patient specimen and controls reran to confirm. - JJ Performed By: #### 2 313014, 5703864, 1013124, 0624160765, 2775765177, 04807939, 1624460836, 9190102066 ####[facility] (DEFAULT)[address] [place] [address] 94320 TnI HSon 05-18-2021 Troponin I High Sensitivity 79 pg/mL Critically abnormal <=15 [facility] Comment on above: Result Comment: call ed to stephan in er by ks at 1837 on 05/18/2021Elevated hsTnI 79 result called and read back ok to: DIO IN ER at: 17:37:22 05/18/2021 by: DILSHADMalcyndi Baseline Delta 1Hr (Note pg/mL=ng/L) <20pg/mL 50-60% >20pg/mL 20%Female Baseline Delta 1Hr <15pg/mL 50-60% >15pg/mL 20%Other Baseline Delta 1Hr <18ng/mL 50-60% >18ng/mL 20%([employer] Guidelines September 2017) Performed By: #### 2 099168, 0979246, 9228084, 0740530436, 4372188252, 39061425, 7634644556, 1597528167 ####[facility] (DEFAULT)[address] [place] [address] 33117 Troponin I High Sensitivity 61 pg/mL Critically abnormal <=15 [facility] Comment on above: Order Comment: To be done 1 hour after first Troponin HSPATIENT IS HARD TO POKE NURSE (JOSE) IS AWARE OF IT. SHE LET DR NAIK KNOW ABOUT IT. GRISELILABDIAS @1830 Result Comment: Elev ated hsTnI 61 result called and read back ok to: DIO IN ER at: 19:16:42 05/18/2021 by: DAVIDGEcalled dio in er by ks at 1917 on 05/18/21Male Baseline Delta 1Hr (Note pg/mL=ng/L) <20pg/mL 50-60% >20pg/mL 20%Female Baseline Delta 1Hr <15pg/mL 50-60% >15pg/mL 20%Other Baseline Delta 1Hr <18ng/mL 50-60% >18ng/mL 20%([employer] Guidelines September 2017) Performed By: #### 5 [id number] ####[facility] (DEFAULT)[address] [place] [address] 21612 UA Lfokc9el 05-18-2021 UA Bacteria 4+ Normal [facility] Comment on above: Order Comment: Urina lysis Microscopic order added on by Discern Expert Rules system. Performed By: #### 6 046103, 0893847348, 44964820 ####[facility] (DEFAULT)[address] [place] [address] UA RBC 3-5 [facility] Comment on above: Order Comment: Urina lysis Microscopic order added on by Dis[employer] Expert Rules system. Performed By: #### 6 738471, [id number], 72520934 ####[facility] (DEFAULT)[address] [place] [address] UA Squam Epi Few [facility] Comment on above: Order Comment: Urina lysis Microscopic order added on by [employer] Rules system. Performed By: #### 6 493086, 2327695097, 00170251 ####[facility] (DEFAULT)[address] [place] [address] UA WBC >100 [facility] Comment on above: Order Comment: Urina lysis Microscopic order added on by Intelligize Expert Rules system. Performed By: #### 6 128579, 6955527363, 17164454 ####[facility] (DEFAULT)[address] [place] [address] UA w Culture if Ind Standard on 05-18-2021 Breakpoint UA [facility] Comment on above: Performed By: #### 6 793460, [id number], 89406522 ####[facility] (DEFAULT)[address] [place] [address] Color (U) Yellow [facility] Comment on above: Performed By: #### 6 868055, 0596252122, 55528746 ####[facility] (DEFAULT)[address] [place] [address] Culture? Indicated Invalid Interpretation [facility] Comment on above: Result Comment: Resu lt created by rule GL_MAGR_ADD_UA_CULT Result created by rule GL_MAGR_ADD_UA_CULT Result created by rule GL_MAGR_ADD_UA_CULT1 Result created by rule GL_MAGR_ADD_UA_CULT Performed By: #### 6 690465, 4333381753, [id number] ####[facility] (DEFAULT)[address] [place] [address] 13029 Glucose (U) [Mass/Vol] Negative Normal [facility] Comment on above: Performed By: #### 6 156345, 6423383634, 74037864 ####[facility] (DEFAULT)[address] [place] [address] 35309 Ketones Ql (U) Negative Normal [facility] Comment on above: Performed By: #### 6 866607, 0248608192, 11945350 ####[facility] (DEFAULT)[address] [place] [address] 38344 Micro? Indicated Invalid Interpretation Code [facility] Comment on above: Result Comment: Resu lt created by rule GL_MAGR_ADD_UA_MICRO Performed By: #### 6 128206, 8163645989, 90367358 ####[facility] (DEFAULT)[address] [place] [address] 12991 UA Bilirubin SMALL Abnormal [facility] Comment on above: Performed By: #### 6 873968, 7075396097, 91734864 ####[facility] (DEFAULT)[address] [place] [address] 60891 UA Blood LARGE Abnormal NEGATIVE [facility] Comment on above: Performed By: #### 6 556265, 7285673595, 26989408 ####[facility] (DEFAULT)[address] [place] [address] 97453 UA Clarity CLOUDY Abnormal CLEAR [facility] Comment on above: Performed By: #### 6 665938, 9756067534, 14763969 ####[facility] (DEFAULT)[address] [place] [address] 13660 UA Leuk Est Negative Normal NEGATIVE [facility] Comment on above: Performed By: #### 6 531540, 1044554944, 95438546 ####[facility] (DEFAULT)[address] [place] [address] 94646 UA Nitrite Positive Abnormal NEGATIVE [facility] Comment on above: Performed By: #### 6 888889, 7048112214, 65125283 ####[facility] (DEFAULT)[address] [place] [address] 57806 UA pH 7.0 Normal 5-8 [facility] Comment on above: Performed By: #### 6 424101, 7446489801, 91247682 ####[facility] (DEFAULT)[address] [place] [address] 21029 UA Protein 100 Abnormal NEGATIVE [facility] Comment on above: Performed By: #### 6 078988, 8954636652, 91236820 ####[facility] (DEFAULT)[address] [place] [address] 97475 UA Spec Grav 1.020 Normal 1.001-1.035 [facility] Comment on above: Performed By: #### 6 641372, 3962585265, 34243235 ####[facility] (DEFAULT)[address] [place] [address] 44494 UA Urobilinogen 0.2 mg/dL Normal 0.2-1.0 [facility] Comment on above: Performed By: #### 6 258747, 9076570018, 54923762 ####[facility] (DEFAULT)[address] [place] [address] 98327 Urine Source Catheter Normal [facility] Comment on above: Performed By: #### 6 390867, 1269606304, 55756054 ####[facility] (DEFAULT)[address] [place] [address] 57293 XR Chest 1 View Frontalon XR Chest 1 View Frontal Normal [facility] Advance Directive Documentso n 05-15-2021 Advance Directive Documents [id number] .00OTGTIFF [facility] Advance Directive Documents [id number]#1 .00OTGTIFF [facility] Anti-coagulation Progress No karen 05-15-2021 Anti-coagulation Progress Note [facility] Anti-coagulation Progress No karen 05-12-2021 Anti-coagulation Progress Note [facility] Provider Orderson 05-12-2021 Provider Orders [id number] .[facility]-10[facility]2021 Outside Records [id number]#1 .[facility] [id number]#1 .[facility] 05-10-2021 Provider Orders [id number] .[facility] [id number]#1 .00[facility] Coding Summaryon 05-09-2021 Coding Summary [facility] Outside Recordson 05-09-2021 Outside Records [id number]#1 .00[facility] Telemetry Stripson Telemetry Strips [id number]#1 .00[facility] .Auto Diff 1on 05-08-2021 Auto [place] % 11 % Normal 03-08 [facility] Comment on above: Performed By: #### 1 [id number], 2820803, 7331250, 4478467702, 3279381722, 66926518, 4448153, 8828253063 ####[facility] (DEFAULT)[address] [place] [address] Baso Abs# 0.0 x10 Normal 0.0-0.2 [facility] Comment on above: Performed By: #### 1 277845030, 3860075, 5757557, 5723593376, 6470229961, 88155148, 9911825, 3849797606 ####[facility] (DEFAULT)[address] [place] [address] 21780 Basophils/100 WBC (Bld) 0.4 % Normal 0.2-2.0 [facility] Comment on above: Performed By: #### 1 881880861, 8736083, 5294277, 3182914724, 9972189989, 78957861, 7694039, 2266270100 ####[facility] (DEFAULT)[address] [place] [address] 65937 Eos Abs# 0.1 x10 Normal 0.0-0.4 [facility] Comment on above: Performed By: #### 1 871164158, 0581404, 7854548, 1825083593, 2470326917, 71918777, 4431049, 8237091226 ####[facility] (DEFAULT)[address] [place] [address] 81911 Eosinophils/100 WBC (Bld) 1.6 % Normal 0.9-4.0 [facility] Comment on above: Performed By: #### 1 852044258, 0147423, 6476495, 8474784793, 7379687330, 77517106, 8930136, 8956711586 ####[facility] (DEFAULT)[address] [place] [address] 60278 Lymph Abs# 2.1 x10 Normal 1.3-2.9 [facility] Comment on above: Performed By: #### 1 076358034, 9077573, 0528349, 0302115682, 3256107875, 16853259, 1319496, 4723492934 ####[facility] (DEFAULT)[address] [place] [address] 85058 Lymphocytes/100 WBC (Bld) 30 % Normal 14-48 [facility] Comment on above: Performed By: #### 1 735860702, 3533308, 3378885, 4990714812, 6210639947, 89741863, 7055729, 7692476465 ####[facility] (DEFAULT)[address] [place] [address] 20950 Tunica Abs# 0.8 x10 Normal 0.0-0.8 [facility] Comment on above: Performed By: #### 1 037830082, 1384673, 4476885, 8300017085, 2728495567, 20208833, 0598115, 1640332837 ####[facility] (DEFAULT)[address] [place] [address] 25420 Neut Abs# 4.0 x10 Normal 1.5-9.2 [facility] Comment on above: Performed By: #### 1 723488008, 3259580, 9294319, 9363286782, 6960282216, 48228956, 5023842, 9234931476 ####[facility] (DEFAULT)[address] [place] [address] 50246 Neutrophils/100 WBC (Bld) 57 % Normal 44-88 [facility] Comment on above: Performed By: #### 1 058366054, 8344774, 0683792, 8789721024, 3578027800, 71811212, 9980069, 1384861860 ####[facility] (DEFAULT)[address] [place] [address] 88818 BMP Standardon 05-08-2021 Anion gap [Moles/Vol] 14.0 mmol/L Normal 5.0-19.0 [facility] Comment on above: Performed By: #### 1 [id number] ####[facility] (DEFAULT)[address] [place] [address] 24576 Calcium [Mass/Vol] 8.6 mg/dL Low 8.9-10.3 [facility] Comment on above: Performed By: #### 1 [id number] ####[facility] (DEFAULT)[address] [place] [address] 04570 Chloride [Moles/Vol] 102 mmol/L Normal 101-111 [facility] Comment on above: Performed By: #### 1 154396518 ####[facility] (DEFAULT)[address] [place] [address] 80247 CO2 [Moles/Vol] 24 mmol/L Normal 21-32 [facility] Comment on above: Performed By: #### 1 035872195 ####[facility] (DEFAULT)[address] [place] [address] 10865 Creatinine [Mass/Vol] 1.51 mg/dL High 0.60-1.30 [facility] Comment on above: Performed By: #### 1 650396490 ####[facility] (DEFAULT)[address] [place] [address] 24426 eGFR AA 40 mL/min/1.73m2 Invalid Interpretation Code [facility] Comment on above: Result Comment: Bad Credit Collector tia Kidney disease could be indicated at eGFRs of less than 60 ml/min/1.73m2. Kidney Failure is indicated at less than 15 ml/min/1.73m2 Performed By: #### 1 [id number] ####[facility] (DEFAULT)[address] [place] [address] 26742 eGFR Non AA 33 mL/min/1.73m2 Invalid Interpretation Code [facility] Comment on above: Performed By: #### 1 [id number] ####[facility] (DEFAULT)[address] [place] [address] 29677 Glucose [Mass/Vol] 263.0 mg/dL High 74.0-118.0 [facility] Comment on above: Performed By: #### 1 606935124 ####[facility] (DEFAULT)[address] [place] [address] 64508 Osmolality 288 mOsm/L Invalid Interpretation Code [facility] Comment on above: Performed By: #### 1 [id number] ####[facility] (DEFAULT)[address] [place] [address] 64365 Potassium [Moles/Vol] 4.7 mmol/L Normal 3.6-5.1 [facility] Comment on above: Performed By: #### 1 [id number] ####[facility] (DEFAULT)[address] [place] [address] 70956 Sodium [Moles/Vol] 135.0 mmol/L Low 136.0-144.0 [facility] Comment on above: Performed By: #### 1 214556928 ####[facility] (DEFAULT)[address] [place] [address] 66012 Urea nitrogen [Mass/Vol] 38 mg/dL High 8-26 [facility] Comment on above: Performed By: #### 1 223306390 ####[facility] (DEFAULT)[address] [place] [address] 40353 Urea nitrogen/Creatinine [Mass ratio] 25.0 mg/mg High 4.6-16.2 [facility] Comment on above: Performed By: #### 1 [id number] ####[facility] (DEFAULT)[address] [place] [address] 41581 BNP.on 05-08-2021 Internal Control Pass Normal [facility] Comment on above: Performed By: #### 1 976884366, 4573178, 9410199, 1542096224, 7553110127, 44792652, 5289154, 1258387295 ####[facility] (DEFAULT)[address] [place] [address] 50369 Natriuretic peptide B (Bld) [Mass/Vol] 779.0 pg/mL High 0.0-100.0 [facility] Comment on above: Result Comment: BNP results greater than 100 pg/mL are considered abnormal and suggestive of patients with CHF. Higher BNP concentrations measured in the first 72 hours after an acute coronary syndorme are associated with an increased risk of , myocardial infarction, and CHF. Performed By: #### 1 999943821, 2215075, 0069760, 7357027664, 4790043573, 68900316, 2733867, 4640648063 ####[facility] (DEFAULT)[address] [place] [address] 68566 CBC w/ Auto Diffon Erythrocyte distribution width (RBC) [Ratio] 14.0 % Normal 11.5-15.0 [facility] Comment on above: Performed By: #### 1 522952479, 2028000, 6921880, 3276352238, 9870235686, 67260808, 6232392, 5001187289 ####[facility] (DEFAULT)[address] [place] [address] 27740 Hematocrit (Bld) [Volume fraction] 39.0 % Normal 33.7-40.4 [facility] Comment on above: Performed By: #### 1 284484599, 2867256, 2852070, 7523483268, 8612066980, 78508016, 3014876, 5456423243 ####[facility] (DEFAULT)[address] [place] [address] 58466 Hemoglobin (Bld) [Mass/Vol] 11.8 g/dL Normal 11.3-15.9 [facility] Comment on above: Performed By: #### 1 119359680, 8708398, 7368123, 7133922043, 5129802947, 54042929, 1545520, 5700130920 ####[facility] (DEFAULT)[address] [place] [address] Instr WBC 7.1 x10 Invalid Interpretation Code [facility] Comment on above: Performed By: #### 1 [id number], 6324670, 4619017, 1989770964, 8500162300, 98102838, 6425454, 3372596512 ####[facility] (DEFAULT)[address] [place] [address] Man Diff? Auto Normal [facility] Comment on above: Performed By: #### 1 271603610, 7168172, 0941498, 8524006914, 2525844840, 98069034, 6701275, 1527501558 ####[facility] (DEFAULT)[address] [place] [address] 72446 MCH (RBC) [Entitic mass] 30 pg Normal 24-34 [facility] Comment on above: Performed By: #### 1 791575494, 1839917, 5352616, 3560669445, 7857020776, 97418231, 9619203, 1010036668 ####[facility] (DEFAULT)[address] [place] [address] 40955 MCHC (RBC) [Mass/Vol] 30 g/dL Normal 26-37 [facility] Comment on above: Performed By: #### 1 009338706, 6895619, 0671008, 4879903852, 9762029191, 70762930, 0443897, 2717352594 ####[facility] (DEFAULT)[address] [place] [address] 04318 MCV (RBC) [Entitic vol] 98 fL Normal 81-100 [facility] Comment on above: Performed By: #### 1 476170453, 0131608, 7343939, 7207388509, 7663259209, 39758198, 6219683, 1653730445 ####[facility] (DEFAULT)[address] [place] [address] 71375 Platelet 213 x10 Normal 138-427 [facility] Comment on above: Performed By: #### 1 959950637, 4341696, 7023069, 1741889834, 1628087885, 25268074, 0173566, 6231822643 ####[facility] (DEFAULT)[address] [place] [address] 79045 Platelet mean volume (Bld) [Entitic vol] 9.6 fL Normal 6.3-10.2 [facility] Comment on above: Performed By: #### 1 149863464, 1642411, 2337206, 5900441300, 9037642404, 40069947, 9658542, 8399948161 ####[facility] (DEFAULT)[address] [place] [address] RBC 3.98 x10 Normal 3.70-5.30 [facility] Comment on above: Performed By: #### 1 127010351, 3633683, 6391860, 3720135884, 8487150260, 80679881, 4663381, 6290592660 ####[facility] [facility]ALTHCARE (DEFAULT)[address] [place] [address] WBC 7.1 x10 Normal 3.5-10.5 [facility] Comment on above: Performed By: #### 1 [id number], 1939977, 5790747, 7695626481, 9528265531, 28101922, 4389882, [id number] ####[facility] (DEFAULT)[address] [place] [address] 52855 CMP Standardon 05-08-2021 Albumin [Mass/Vol] 3.1 g/dL Low 3.5-5.0 [facility] Comment on above: Performed By: #### 1 [id number], 6975744, 7876051, 8886810078, 7052197257, 64782118, 6956845, 1108743340 ####[facility] (DEFAULT)[address] [place] [address] 67900 Albumin/Globulin [Mass ratio] 1.0 {ratio} Low 1.4-2.6 [facility] Comment on above: Performed By: #### 1 [id number], 6761657, 2581173, 7030266526, 0288757581, 23750456, 6885796, 9958847431 ####[facility] ([facility])[address] [place] [address] 42643 Alk Phos 108 IU/L High 32-91 [facility] Comment on above: Performed By: #### 1 150098122, 5948987, 0574204, 4172139253, 6339724408, 89196842, 1168201, 6498919906 ####[facility] (DEFAULT)[address] [place] [address] ALT [Catalytic activity/Vol] 20.0 U/L Normal 14.0-54.0 [facility] Comment on above: Performed By: #### 1 645513786, 0426107, 8517904, 1878044221, 3001786844, 01244655, 6211405, 2537627532 ####[facility] (DEFAULT)[address] [place] [address] 55884 Anion gap [Moles/Vol] 12.0 mmol/L Normal 5.0-19.0 [facility] Comment on above: Performed By: #### 1 524367126, 9660363, 3649920, 1898735285, 8184379111, 18755537, 9123820, 6064495513 ####[facility] (DEFAULT)[address] [place] [address] 69461 AST [Catalytic activity/Vol] 20 U/L Normal 15-41 [facility] Comment on above: Performed By: #### 1 599129781, 1822767, 6734176, 0657442427, 4169449794, 26603555, 3789669, 8770505761 ####[facility] (DEFAULT)[address] [place] [address] 63740 Bili Total 0.5 mg/dL Normal 0.3-1.2 [facility] Comment on above: Performed By: #### 1 296996562, 8817896, 4699191, 5988907345, 7617584310, 47068201, 5833093, 3660927522 ####[facility]DEFAULT)[address] [place] [address] 41024 Calcium [Mass/Vol] 8.7 mg/dL Low 8.9-10.3 [facility] Comment on above: Performed By: #### 1 325351437, 4309924, 1173372, 5876745720, 2375617862, 97114784, 1182037, 6300946247 ####[facility]DEFAULT)[address] [place] [address] 46433 Chloride [Moles/Vol] 104 mmol/L Normal 101-111 [facility] Comment on above: Performed By: #### 1 446894040, 3761333, 5549767, 8932672646, 1170734011, 90817130, 9238275, 1460903026 ####[facility]DEFAULT)[address] [place] [address] 63286 CO2 [Moles/Vol] 25 mmol/L Normal 21-32 [facility] Comment on above: Performed By: #### 1 117830850, 7088324, 4410157, 7119859375, 7549723247, 49243753, 6503616, 4691845365 ####[facility] (DEFAULT)[address] [place] [address] 68467 Creatinine [Mass/Vol] 1.45 mg/dL High 0.60-1.30 [facility] Comment on above: Performed By: #### 1 352342459, 0767507, 5164723, 5892401185, 9861060281, 15149814, 3327325, 1411424457 ####[facility])[address] [place] [address] 20683 eGFR AA 42 mL/min/1.73m2 Invalid Interpretation Code [facility] Comment on above: Result Comment: Bad Credit Collector tia Kidney disease could be indicated at eGFRs of less than 60 ml/min/1.73m2. Kidney Failure is indicated at less than 15 ml/min/1.73m2 Performed By: #### 1 419770031, 4062579, 4364377, 2555223142, 5819424887, 71213131, 7357349, 5006957337 ####[facility] (DEFAULT)[address] [place] [address] 90839 eGFR Non AA 35 mL/min/1.73m2 Invalid Interpretation Code [facility] Comment on above: Performed By: #### 1 [id number], 8698763, 2479845, 4419952300, 4905085140, 43656655, 7416267, 0767420225 ####[facility] (DEFAULT)[address] [place] [address] 63057 Globulin (S) [Mass/Vol] 3.0 g/dL Normal 1.5-4.3 [facility] Comment on above: Performed By: #### 1 108991279, 0941672, 4977944, 3148820931, 2716016263, 36538407, 2446224, 6433940869 ####[facility] (DEFAULT)[address] [place] [address] 70436 Glucose [Mass/Vol] 155.0 mg/dL High 74.0-118.0 [facility] Comment on above: Performed By: #### 1 702452715, 7634378, 2659340, 7046120541, 5121763277, 84585376, 3507657, 2753508194 ####[facility] (DEFAULT)[address] [place] [address] 83591 Osmolality 287 mOsm/L Invalid Interpretation Code [facility] Comment on above: Performed By: #### 1 290186110, 0042962, 8454886, 9271409542, 7352355576, 03818490, 2833523, 5183344484 ####[facility] (DEFAULT)[address] [place] [address] 05817 Potassium [Moles/Vol] 5.0 mmol/L Normal 3.6-5.1 [facility] Comment on above: Performed By: #### 1 017091178, 5536027, 6579007, 9693854788, 0738032253, 73631378, 7104604, 9638214632 ####[facility]DEFAULT)[address] [place] [address] 22858 Protein [Mass/Vol] 6.1 g/dL Low 6.5-8.1 [facility] Comment on above: Performed By: #### 1 990265346, 8566435, 9762293, 4373937630, 1008567991, 49797388, 5952309, 0556534264 ####[facility] (DEFAULT)[address] [place] [address] 65833 Sodium [Moles/Vol] 136.0 mmol/L Normal 136.0-144.0 [facility] Comment on above: Performed By: #### 1 971356787, 3624214, 1681594, 7921695125, 4278953253, 96217059, 8235291, 2663141041 ####[facility] (DEFAULT)[address] [place] [address] 13732 Urea nitrogen [Mass/Vol] 46 mg/dL High 8-26 [facility] Comment on above: Performed By: #### 1 279197445, 8941130, 4279920, 8951802121, 6240095221, 09779562, 9364577, 8776122507 ####[facility] (DEFAULT)[address] [place] [address] 07134 Urea nitrogen/Creatinine [Mass ratio] 32.0 mg/mg High 4.6-16.2 [facility] Comment on above: Performed By: #### 1 521847883, 0200562, 7255398, 5140386403, 2798296708, 94733069, 9905409, 7088021323 ####[facility] (DEFAULT)[address] [place] [address] 84733 Consent Formson 05-08-2021 Consent Forms [id number] .[id number] Normal [facility] Education Noteon 05-08-2021 Education Note Normal [facility] Extra Redon 05-08-2021 Tube Collected Yes Invalid Interpretation Code [facility] Comment on above: Performed By: #### 1 [id number], 9198680, 3251375, 1463835476, 2216688178, 82890329, 1300309, 6220563285 ####[facility] (DEFAULT)[address] [place] [address] 88325 Inpatient Clinical Summaryon 05-08-2021 Inpatient Clinical Summary Normal [facility] Inpatient Patient Summaryon 05-08-2021 Inpatient Patient Summary Normal [facility] Magnesiumon 05-08-2021 Magnesium [Mass/Vol] 1.91 mg/dL Normal 1.80-2.50 [facility] Comment on above: Performed By: #### 1 172824258, 0969966, 1464719, 1940457550, 4120153387, 91111119, 3846143, 8485717230 ####[facility]DEFAULT)[address] [place] [address] 48277 POCT Glucose Levelon 022 Glucose [Mass/Vol] 184 mg/dL High [address] [place] [address] Comment on above: Performed By: #### 4 [id number] ####[facility] (DEFAULT)[address] [place] [address] 44033 Glucose [Mass/Vol] 192 mg/dL [address] Comment on above: Performed By: #### 4 488016328 ####[facility] (DEFAULT)[address] [place] [address] 54398 PTon 05-08-2021 INR Coag (PPP) [Relative time] 3.87 {INR} High 0.91-1.11 [facility] Comment on above: Performed By: #### 1 134635502, 8547757, 3298459, 5250626656, 4639445147, 72106624, 3975779, 2639543716 ####[facility] (DEFAULT)[address] [place] [address] 18037 PT 39.2 second(s) High 9.7-11.8 [facility] Comment on above: Performed By: #### 1 730439517, 9891898, 3035781, 4719448675, 8822924081, 95993641, 3780804, 5202673158 ####[facility] (DEFAULT)[address] [place] [address] Pharmacy Noteon 05-08-2021 Pharmacy Note Normal [facility] Pharmacy Note Normal [facility] Telemetry Stripson Telemetry Strips [id number] .[id number] Normal [facility] .Auto Diff 1on 05-07-2021 Auto Tunica % 13 % High -12 [facility] Comment on above: Performed By: #### 1 6936167, 3552811 ####[facility] (DEFAULT)[address] [place] [address] Baso Abs# 0.0 x10 Normal 0.0-0.2 [facility] Comment on above: Performed By: #### 1 5280091, 4740843 ####[facility] (DEFAULT)[address] [place] [address] Basophils/100 WBC (Bld) 0.3 % Normal 0.2-2.0 [facility] Comment on above: Performed By: #### 1 8180474, 4758487 ####[facility] (DEFAULT)[address] [place] [address] 53891 Eos Abs# 0.1 x10 Normal 0.0-0.4 [facility] Comment on above: Performed By: #### 1 5931134, 1638802 ####[facility] (DEFAULT)[address] [place] [address] Eosinophils/100 WBC (Bld) 0.8 % Low 0.9-4.0 [facility] Comment on above: Performed By: #### 1 8852500, 1553899 ####[facility] (DEFAULT)[address] [place] [address] 93815 Lymph Abs# 1.8 x10 Normal 1.3-2.9 [facility] Comment on above: Performed By: #### 1 5889065, 1606400 ####[facility] (DEFAULT)[address] [place] [address] 92455 Lymphocytes/100 WBC (Bld) 24 % Normal 14-48 [facility] Comment on above: Performed By: #### 1 0876949, 3791851 ####[facility] (DEFAULT)[address] [place] [address] 52819 Tunica Abs# 0.9 x10 High 0.0-0.8 [facility] Comment on above: Performed By: #### 1 8558448, 7641276 ####[facility] (DEFAULT)[address] [place] [address] 03714 Neut Abs# 4.5 x10 Normal 1.5-9.2 [facility] Comment on above: Performed By: #### 1 1801205, 8681356 ####[facility] (DEFAULT)[address] [place] [address] 51760 Neutrophils/100 WBC (Bld) 62 % Normal 44-88 [facility] Comment on above: Performed By: #### 1 0082297, 2958568 ####[facility] (DEFAULT)[address] [place] [address] 67648 [facility] Standardon 05-07-2021 Anion gap [Moles/Vol] 16.0 mmol/L Normal 5.0-19.0 [facility] Comment on above: Performed By: #### 1 437771884 ####[facility]DEFAULT)[address] [place] [address] 42356 Calcium [Mass/Vol] 8.7 mg/dL Low 8.9-10.3 [facility] Comment on above: Performed By: #### 1 566096306 ####[facility]DEFAULT)[address] [place] [address] 31170 Chloride [Moles/Vol] 103 mmol/L Normal 101-111 [facility] Comment on above: Performed By: #### 1 799507518 ####[facility])[address] [place] [address] 79179 CO2 [Moles/Vol] 20 mmol/L Low 21-32 [facility] Comment on above: Performed By: #### 1 562184832 ####[facility])[address] [place] [address] 48850 Creatinine [Mass/Vol] 1.78 mg/dL High 0.60-1.30 [facility] Comment on above: Performed By: #### 1 793526008 ####[facility])[address] [place] [address] 86551 eGFR AA 33 mL/min/1.73m2 Invalid Interpretation Code [facility] Comment on above: Result Comment: Bad Credit Collector tia Kidney disease could be indicated at eGFRs of less than 60 ml/min/1.73m2. Kidney Failure is indicated at less than 15 ml/min/1.73m2 Performed By: #### 1 [id number] ####[facility] (DEFAULT)[address] [place] [address] 32093 eGFR Non AA 27 mL/min/1.73m2 Invalid Interpretation Code [facility] Comment on above: Performed By: #### 1 [id number] ####[facility]DEFAULT)[address] [place] [address] 54457 Glucose [Mass/Vol] 173.0 mg/dL High 74.0-118.0 [facility] Comment on above: Performed By: #### 1 334183446 ####[facility]DEFAULT)[address] [place] [address] 43727 Osmolality 283 mOsm/L Invalid Interpretation Code [facility] Comment on above: Performed By: #### 1 635945152 ####[facility] (DEFAULT)[address] [place] [address] 44933 Potassium [Moles/Vol] 5.2 mmol/L High 3.6-5.1 [facility] Comment on above: Performed By: #### 1 114216432 ####[facility] (DEFAULT)[address] [place] [address] 25036 Sodium [Moles/Vol] 134.0 mmol/L Low 136.0-144.0 [facility] Comment on above: Performed By: #### 1 580792381 ####[facility] (DEFAULT)[address] [place] [address] 78052 Urea nitrogen [Mass/Vol] 43 mg/dL High 8-26 [facility] Comment on above: Performed By: #### 1 255494434 ####[facility] ([facility])[address] [place] [address] 51448 Urea nitrogen/Creatinine [Mass ratio] 24.0 mg/mg High 4.6-16.2 [facility] Comment on above: Performed By: #### 1 858763445 ####[facility] (DEFAULT)[address] [place] [address] 21527 BNP.on 05-07-2021 Internal Control Pass Normal [facility] Comment on above: Performed By: #### 2 510672, 1531744368, 9438426100, 0123450 ####[facility] (DEFAULT)[address] [place] [address] 78020 Natriuretic peptide B (Bld) [Mass/Vol] 630.0 pg/mL High 0.0-100.0 [facility] Comment on above: Result Comment: BNP results greater than 100 pg/mL are considered abnormal and suggestive of patients with CHF. Higher BNP concentrations measured in the first 72 hours after an acute coronary syndorme are associated with an increased risk of , myocardial infarction, and CHF. Performed By: #### 2 922229, 8766110631, 7147284781, 9671701 ####[facility] (DEFAULT)[address] [place] [address] 62940 CBC w/ Auto Diffon Erythrocyte distribution width (RBC) [Ratio] 14.1 % Normal 11.5-15.0 [facility] Comment on above: Performed By: #### 1 4854214, 6222874 ####[facility] (DEFAULT)[address] [place] [address] 77248 Hematocrit (Bld) [Volume fraction] 37.5 % Normal 33.7-40.4 [facility] Comment on above: Performed By: #### 1 2356998, 7066624 ####[facility] (DEFAULT)[address] [place] [address] 26559 Hemoglobin (Bld) [Mass/Vol] 11.5 g/dL Normal 11.3-15.9 [facility] Comment on above: Performed By: #### 1 5161737, 3605573 ####[facility] (DEFAULT)[address] [place] [address] 40717 Instr WBC 7.2 x10 Invalid Interpretation Code [facility] Comment on above: Performed By: #### 1 3361227, 9937077 ####[facility] (DEFAULT)[address] [place] [address] Man Diff? Auto Normal [facility] Comment on above: Performed By: #### 1 8866073, 4973552 ####[facility] (DEFAULT)[address] [place] [address] 14666 MCH (RBC) [Entitic mass] 30 pg Normal 24-34 [facility] Comment on above: Performed By: #### 1 2110029, 0342092 ####[facility] (DEFAULT)[address] [place] [address] MCHC (RBC) [Mass/Vol] 31 g/dL Normal 26-37 [facility] Comment on above: Performed By: #### 1 7189272, 4011141 ####[facility] (DEFAULT)[address] [place] [address] MCV (RBC) [Entitic vol] 97 fL Normal 81-100 [facility] Comment on above: Performed By: #### 1 1962799, 8189948 ####[facility] (DEFAULT)[address] [place] [address] Platelet 196 x10 Normal 138-427 [facility] Comment on above: Performed By: #### 1 6105339, 0960658 ####[facility] (DEFAULT)[address] [place] [address] 40751 Platelet mean volume (Bld) [Entitic vol] 9.4 fL Normal 6.3-10.2 [facility] Comment on above: Performed By: #### 1 3959376, 4630754 ####[facility] (DEFAULT)[address] [place] [address] 71376 RBC 3.85 x10 Normal 3.70-5.30 [facility] Comment on above: Performed By: #### 1 2584027, 2277089 ####[facility] (DEFAULT)[address] [place] [address] 55135 WBC 7.2 x10 Normal 3.5-10.5 [facility] Comment on above: Performed By: #### 1 0355035, 9958691 ####[facility] (DEFAULT)[address] [place] [address] 27212 CMP Standardon 05-07-2021 Albumin [Mass/Vol] 3.2 g/dL Low 3.5-5.0 [facility] Comment on above: Performed By: #### 2 968028, 5039119577, 2603346282, 8839844 ####[facility] (DEFAULT)[address] [place] [address] 88160 Albumin/Globulin [Mass ratio] 1.1 {ratio} Low 1.4-2.6 [facility] Comment on above: Performed By: #### 2 718861, 2112773608, 0553593059, 4600827 ####[facility] (DEFAULT)[address] [place] [address] 24954 Alk Phos 104 IU/L High 32-91 [facility] Comment on above: Performed By: #### 2 816819, 7347782666, 2020611333, 8212003 ####[facility] (DEFAULT)[address] [place] [address] 06015 ALT [Catalytic activity/Vol] 23.0 U/L Normal 14.0-54.0 [facility] Comment on above: Performed By: #### 2 986410, 9983756426, 7331417699, 0352598 ####[facility] (DEFAULT)[address] [place] [address] 15804 Anion gap [Moles/Vol] 14.0 mmol/L Normal 5.0-19.0 [facility] Comment on above: Performed By: #### 2 703925, 0567171279, 9556132136, 4088901 ####[facility] (DEFAULT)[address] [place] [address] 44504 AST [Catalytic activity/Vol] 30 U/L Normal 15-41 [facility] Comment on above: Performed By: #### 2 004200, 6169569425, 2899349410, 7828549 ####[facility] (DEFAULT)[address] [place] [address] 85233 Bili Total 0.6 mg/dL Normal 0.3-1.2 [facility] Comment on above: Performed By: #### 2 643744, 3028866211, 1236458706, 9683823 ####[facility] (DEFAULT)[address] [place] [address] 95980 Calcium [Mass/Vol] 8.7 mg/dL Low 8.9-10.3 [facility] Comment on above: Performed By: #### 2 444719, 7724467810, 7576913159, 5668997 ####[facility] (DEFAULT)[address] [place] [address] 01241 Chloride [Moles/Vol] 104 mmol/L Normal 101-111 [facility] Comment on above: Performed By: #### 2 027189, 9487412262, 5913543701, 1246650 ####[facility]DEFAULT)[address] [place] [address] 87849 CO2 [Moles/Vol] 22 mmol/L Normal 21-32 [facility] Comment on above: Performed By: #### 2 840366, 9959150848, 3116098671, 0512884 ####[facility] (DEFAULT)[address] [place] [address] 44238 Creatinine [Mass/Vol] 2.24 mg/dL High 0.60-1.30 [facility] Comment on above: Performed By: #### 2 670893, 9756163805, 8142389596, 2462191 ####[facility] (DEFAULT)[address] [place] [address] 43088 eGFR AA 25 mL/min/1.73m2 Invalid Interpretation Code [facility] Comment on above: Result Comment: Bad Credit Collector tia Kidney disease could be indicated at eGFRs of less than 60 ml/min/1.73m2. Kidney Failure is indicated at less than 15 ml/min/1.73m2 Performed By: #### 2 352484, 8798017142, 1616199444, 0484707 ####[facility] (DEFAULT)[address] [place] [address] 18786 eGFR Non AA 21 mL/min/1.73m2 Invalid Interpretation Code [facility] Comment on above: Performed By: #### 2 477811, 6672216259, 2362887880, 3356707 ####[facility] (DEFAULT)[address] [place] [address] 55738 Globulin (S) [Mass/Vol] 2.8 g/dL Normal 1.5-4.3 [facility] Comment on above: Performed By: #### 2 492805, 9556960651, 3682716784, 7227822 ####[facility] (DEFAULT)[address] [place] [address] 21187 Glucose [Mass/Vol] 221.0 mg/dL High 74.0-118.0 [facility] Comment on above: Performed By: #### 2 238519, 9979376264, 8698150850, 8515235 ####[facility] (DEFAULT)[address] [place] [address] 76267 Osmolality 289 mOsm/L Invalid Interpretation Code [facility] Comment on above: Performed By: #### 2 606606, 6392892413, 8866466403, 1401886 ####[facility] (DEFAULT)[address] [place] [address] 78965 Potassium [Moles/Vol] 5.4 mmol/L High 3.6-5.1 [facility] Comment on above: Performed By: #### 2 186484, 1089665046, 1153159546, 3348784 ####[facility] (DEFAULT)[address] [place] [address] 23582 Protein [Mass/Vol] 6.0 g/dL Low 6.5-8.1 [facility] Comment on above: Performed By: #### 2 535684, , [id number], 5910533 ####[facility] (DEFAULT)[address] [place] [address] 14616 Sodium [Moles/Vol] 135.0 mmol/L Low 136.0-144.0 [facility] Comment on above: Performed By: #### 2 130064, 6691941949, 7360189774, 3809613 ####[facility])[address] [place] [address] 60939 Urea nitrogen [Mass/Vol] 47 mg/dL High 8-26 [facility] Comment on above: Performed By: #### 2 781748, 7105559293, 5036039511, 0762192 ####[facility])[address] [place] [address] 56063 Urea nitrogen/Creatinine [Mass ratio] 21.0 mg/mg High 4.6-16.2 [facility] Comment on above: Performed By: #### 2 212995, 0467742236, 6518531985, 3345840 ####[facility])[address] [place] [address] 77563 Magnesiumon 05-07-2021 Magnesium [Mass/Vol] 2.06 mg/dL Normal 1.80-2.50 [facility] Comment on above: Performed By: #### 2 243755, 2623380865, 2031557193, 4674686 ####[facility])[address] [place] [address] 07111 POCT Glucose Levelon 022 Glucose [Mass/Vol] 169 mg/dL High [address] [place] [address] Comment on above: Performed By: #### 4 [id number] ####[facility])[address] [place] [address] 89272 Glucose [Mass/Vol] 255 mg/dL High [address] Comment on above: Performed By: #### 4 711855317 ####[facility] (DEFAULT)[address] [place] [address] 22976 Glucose [Mass/Vol] 139 mg/dL High [address] Comment on above: Performed By: #### 4 [id number] ####[facility])[address] [place] [address] 42526 Glucose [Mass/Vol] 247 mg/dL High [address] [place] [address] Comment on above: Performed By: #### 4 [id number] ####[facility] ([facility])[address] [place] [address] 46058 PTon 05-07-2021 INR Coag (PPP) [Relative time] 2.29 {INR} High 0.91-1.11 [facility] Comment on above: Performed By: #### 2 017037, 2479069191, 8462859329, 8383100 ####[facility] (DEFAULT)[address] [place] [address] PT 23.8 second(s) High 9.7-11.8 [facility] Comment on above: Performed By: #### 2 488103, 3366313419, 9025325697, 3911587 ####[facility] (DEFAULT)[address] [place] [address] Pharmacy Noteon 05-07-2021 Pharmacy Note Normal [facility] Progress Note - Nurseon 04-25 Progress Note - Nurse Normal [facility] .Auto Diff on 05-06-2021 Auto [place] % 10 % Normal 03-08 [facility] Comment on above: Performed By: #### [id number] ####[facility] (DEFAULT)[address] [place] [address] Baso Abs# 0.0 x10 Normal 0.0-0.2 [facility] Comment on above: Performed By: #### [id number], [id number] ####[facility] (DEFAULT)[address] [place] [address] Basophils/100 WBC (Bld) 0.2 % Normal 0.2-2.0 [facility] Comment on above: Performed By: #### 7 [id number], [id number], [id number] ####[facility] (DEFAULT)[address] [place] [address] Eos Abs# 0.1 x10 Normal 0.0-0.4 [facility] Comment on above: Performed By: #### 7 [id number], [id number], [id number] ####[facility] (DEFAULT)[address] [place] [address] Eosinophils/100 WBC (Bld) 0.7 % Low 0.9-4.0 [facility] Comment on above: Performed By: #### 7 [id number], [id number], [id number] ####[facility] (DEFAULT)[address] [place] [address] 19342 Lymph Abs# 1.7 x10 Normal 1.3-2.9 [facility] Comment on above: Performed By: #### 7 370291, [id number], [id number] ####[facility] (DEFAULT)[address] [place] [address] 92103 Lymphocytes/100 WBC (Bld) 21 % Normal 14-48 [facility] Comment on above: Performed By: #### 7 410322, [id number], [id number] ####[facility] (DEFAULT)[address] [place] [address] 97141 Tunica Abs# 0.8 x10 Normal 0.0-0.8 [facility] Comment on above: Performed By: #### 7 441550, [id number], [id number] ####[facility] (DEFAULT)[address] [place] [address] 26910 Neut Abs# 5.5 x10 Normal 1.5-9.2 [facility] Comment on above: Performed By: #### 7 186140, [id number], [id number] ####[facility] (DEFAULT)[address] [place] [address] 71012 Neutrophils/100 WBC (Bld) 68 % Normal 44-88 [facility] Comment on above: Performed By: #### 7 793244, [id number], [id number] ####[facility] (DEFAULT)[address] [place] [address] 37611[facility] Standardon 05-06-2021 Anion gap [Moles/Vol] 13.0 mmol/L Normal 5.0-19.0 [facility] Comment on above: Performed By: #### 1 [id number] ####[facility] (DEFAULT)[address] [place] [address] 95030 Calcium [Mass/Vol] 8.4 mg/dL Low 8.9-10.3 [facility] Comment on above: Performed By: #### 1 [id number] ####[facility] (DEFAULT)[address] [place] [address] 82375 Chloride [Moles/Vol] 101 mmol/L Normal 101-111 [facility] Comment on above: Performed By: #### 1 [id number] ####[facility] (DEFAULT)[address] [place] [address] 61442 CO2 [Moles/Vol] 23 mmol/L Normal 21-32 [facility] Comment on above: Performed By: #### 1 [id number] ####[facility] (DEFAULT)[address] [place] [address] 75435 Creatinine [Mass/Vol] 2.41 mg/dL High 0.60-1.30 [facility] Comment on above: Performed By: #### 1 [id number] ####[facility] (DEFAULT)[address] [place] [address] 95829 eGFR AA 23 mL/min/1.73m2 Invalid Interpretation Code [facility] Comment on above: Result Comment: Bad Credit Collector tia Kidney disease could be indicated at eGFRs of less than 60 ml/min/1.73m2. Kidney Failure is indicated at less than 15 ml/min/1.73m2 Performed By: #### 1 [id number] ####[facility] (DEFAULT)[address] [place] [address] 76266 eGFR Non AA 19 mL/min/1.73m2 Invalid Interpretation Code [facility] Comment on above: Performed By: #### 1 [id number] ####[facility] (DEFAULT)[address] [place] [address] 74978 Glucose [Mass/Vol] 240.0 mg/dL High 74.0-118.0 [facility] Comment on above: Performed By: #### 1 [id number] ####[facility] (DEFAULT)[address] [place] [address] 30449 Osmolality 283 mOsm/L Invalid Interpretation Code [facility] Comment on above: Performed By: #### 1 [id number] ####[facility] (DEFAULT)[address] [place] [address] 27429 Potassium [Moles/Vol] 6.1 mmol/L High 3.6-5.1 [facility] Comment on above: Result Comment: Nel ent received potassium Performed By: #### 1 [id number] ####[facility] (DEFAULT)[address] [place] [address] 16703 Sodium [Moles/Vol] 131.0 mmol/L Low 136.0-144.0 [facility] Comment on above: Performed By: #### 1 [id number] ####[facility] (DEFAULT)[address] [place] [address] 40745 Urea nitrogen [Mass/Vol] 47 mg/dL High 8-26 [facility] Comment on above: Performed By: #### 1 [id number] ####[facility] (DEFAULT)[address] [place] [address] 74027 Urea nitrogen/Creatinine [Mass ratio] 20.0 mg/mg High 4.6-16.2 [facility] Comment on above: Performed By: #### 1 [id number] ####[facility] (DEFAULT)[address] [place] [address] 79511 BNP.on 05-06-2021 Internal Control Pass Normal [facility] Comment on above: Performed By: #### 7 602613, [id number], [id number] ####[facility] (DEFAULT)[address] [place] [address] 86296 Natriuretic peptide B (Bld) [Mass/Vol] 514.0 pg/mL High 0.0-100.0 [facility] Comment on above: Result Comment: BNP results greater than 100 pg/mL are considered abnormal and suggestive of patients with CHF. Higher BNP concentrations measured in the first 72 hours after an acute coronary syndorme are associated with an increased risk of , myocardial infarction, and CHF. Performed By: #### 7 478351, [id number], [id number] ####[facility] (DEFAULT)[address] [place] [address] 39861 CBC w/ Auto Diffon 2 Erythrocyte distribution width (RBC) [Ratio] 14.2 % Normal 11.5-15.0 [facility] Comment on above: Performed By: #### 7 349925, [id number], [id number] ####[facility] (DEFAULT)[address] [place] [address] 65665 Hematocrit (Bld) [Volume fraction] 39.1 % Normal 33.7-40.4 [facility] Comment on above: Performed By: #### 7 794414, , [id number] ####[facility] (DEFAULT)[address] [place] [address] Hemoglobin (Bld) [Mass/Vol] 11.9 g/dL Normal 11.3-15.9 [facility] Comment on above: Performed By: #### 7 073255, , [id number] ####[facility] (DEFAULT)[address] [place] [address] Instr WBC 8.2 x10 Invalid Interpretation Code [facility] Comment on above: Performed By: #### 7 630253, , [id number] ####[facility] (DEFAULT)[address] [place] [address] Man Diff? Auto Normal [facility] Comment on above: Performed By: #### 7 653434, , [id number] ####[facility] (DEFAULT)[address] [place] [address] MCH (RBC) [Entitic mass] 30 pg Normal 24-34 [facility] Comment on above: Performed By: #### 7 242439, , [id number] ####[facility] (DEFAULT)[address] [place] [address] MCHC (RBC) [Mass/Vol] 30 g/dL Normal 26-37 [facility] Comment on above: Performed By: #### 7 468085, , [id number] ####[facility] (DEFAULT)[address] [place] [address] MCV (RBC) [Entitic vol] 97 fL Normal 81-100 [facility] Comment on above: Performed By: #### 7 342581, [id number], [id number] ####[facility] (DEFAULT)[address] [place] [address] Platelet 206 x10 Normal 138-427 [facility] Comment on above: Performed By: #### 7 613190, , [id number] ####[facility] (DEFAULT)[address] [place] [address] Platelet mean volume (Bld) [Entitic vol] 9.2 fL Normal 6.3-10.2 [facility] Comment on above: Performed By: #### 7 070725, [id number], [id number] ####[facility] (DEFAULT)[address] [place] [address] 16779 RBC 4.03 x10 Normal 3.70-5.30 [facility] Comment on above: Performed By: #### 7 501503, [id number], [id number] ####[facility] (DEFAULT)[address] [place] [address] 73444 WBC 8.2 x10 Normal 3.5-10.5 [facility] Comment on above: Performed By: #### 7 448083, [id number], [id number] ####[facility] (DEFAULT)[address] [place] [address] 03449 CMP Standardon 05-06-2021 Albumin [Mass/Vol] 3.5 g/dL Normal 3.5-5.0 [facility] Comment on above: Performed By: #### 1 [id number], [id number], [id number], ####[facility] (DEFAULT)[address] [place] [address] 26397 Albumin/Globulin [Mass ratio] 1.2 {ratio} Low 1.4-2.6 [facility] Comment on above: Performed By: #### 1 [id number], [id number], [id number], [id number] ####[facility] (DEFAULT)[address] [place] [address] 11786 Alk Phos 75 IU/L Normal 32-91 [facility] Comment on above: Performed By: #### 1 [id number], [id number], [id number], [id number] ####[facility] (DEFAULT)[address] [place] [address] 26731 ALT [Catalytic activity/Vol] 17.0 U/L Normal 14.0-54.0 [facility] Comment on above: Performed By: #### 1 [id number], [id number], 7281151269, 4775810 ####[facility] (DEFAULT)[address] [place] [address] 45377 Anion gap [Moles/Vol] 15.0 mmol/L Normal 5.0-19.0 [facility] Comment on above: Performed By: #### 1 [id number], [id number], , ####[facility] (DEFAULT)[address] [place] [address] 93490 AST [Catalytic activity/Vol] 20 U/L Normal 15-41 [facility] Comment on above: Performed By: #### 1 [id number], [id number], , ####[facility] (DEFAULT)[address] [place] [address] 09241 Bili Total 0.6 mg/dL Normal 0.3-1.2 [facility] Comment on above: Performed By: #### 1 [id number], [id number], , ####[facility] (DEFAULT)[address] [place] [address] 34973 Calcium [Mass/Vol] 9.1 mg/dL Normal 8.9-10.3 [facility] Comment on above: Performed By: #### 1 [id number], [id number], , ####[facility] (DEFAULT)[address] [place] [address] 75656 Chloride [Moles/Vol] 100 mmol/L Low 101-111 [facility] Comment on above: Performed By: #### 1 [id number], [id number], , ####[facility] (DEFAULT)[address] [place] [address] 71134 CO2 [Moles/Vol] 24 mmol/L Normal 21-32 [facility] Comment on above: Performed By: #### 1 [id number], [id number], , ####[facility] (DEFAULT)[address] [place] [address] 09543 Creatinine [Mass/Vol] 1.90 mg/dL High 0.60-1.30 [facility] Comment on above: Performed By: #### 1 [id number], [id number], [id number], ####[facility] (DEFAULT)[address] [place] [address] 07457 eGFR AA 31 mL/min/1.73m2 Invalid Interpretation Code [facility] Comment on above: Result Comment: Bad Credit Collector tia Kidney disease could be indicated at eGFRs of less than 60 ml/min/1.73m2. Kidney Failure is indicated at less than 15 ml/min/1.73m2 Performed By: #### 1 [id number], [id number], [id number], ####[facility] (DEFAULT)[address] [place] [address] 92562 eGFR Non AA 25 mL/min/1.73m2 Invalid Interpretation Code [facility] Comment on above: Performed By: #### 1 [id number], [id number], [id number], ####[facility] (DEFAULT)[address] [place] [address] 73933 Globulin (S) [Mass/Vol] 2.9 g/dL Normal 1.5-4.3 [facility] Comment on above: Performed By: #### 1 [id number], 0683262498, 1939688439, ####[facility] (DEFAULT)[address] [place] [address] 18317 Glucose [Mass/Vol] 167.0 mg/dL High 74.0-118.0 [facility] Comment on above: Performed By: #### 1 [id number], [id number], , ####[facility] (DEFAULT)[address] [place] [address] 55750 Osmolality 281 mOsm/L Invalid Interpretation Code [facility] Comment on above: Performed By: #### 1 [id number], [id number], [id number], ####[facility] (DEFAULT)[address] [place] [address] 68073 Potassium [Moles/Vol] 4.8 mmol/L Normal 3.6-5.1 [facility] Comment on above: Performed By: #### 1 [id number], [id number], 8282554558, [id number] ####[facility] (DEFAULT)[address] [place] [address] 16904 Protein [Mass/Vol] 6.4 g/dL Low 6.5-8.1 [facility] Comment on above: Performed By: #### 1 [id number], [id number], 2165650206, 4704291 ####[facility] (DEFAULT)[address] [place] [address] 15542 Sodium [Moles/Vol] 134.0 mmol/L Low 136.0-144.0 [facility] Comment on above: Performed By: #### 1 [id number], 1792906268, 5351789156, [id number] ####[facility] (DEFAULT)[address] [place] [address] 73315 Urea nitrogen [Mass/Vol] 39 mg/dL High 8-26 [facility] Comment on above: Performed By: #### 1 [id number], [id number], 1539841046, ####[facility] (DEFAULT)[address] [place] [address] 44107 Urea nitrogen/Creatinine [Mass ratio] 21.0 mg/mg High 4.6-16.2 [facility] Comment on above: Performed By: #### 1 [id number], [id number], [id number], 0484073 ####[facility] (DEFAULT)[address] [place] [address] 22621 Extra Blueon 05-06-2021 Tube Collected Yes Invalid Interpretation Code [facility] Comment on above: Performed By: #### 1 [id number], [id number], [id number], ####[facility] (DEFAULT)[address] [place] [address] 52063 Magnesiumon 05-06-2021 Magnesium [Mass/Vol] 2.16 mg/dL Normal 1.80-2.50 [facility] Comment on above: Performed By: #### 1 [id number], 8975924437, [id number], [id number] ####[facility] (DEFAULT)[address] [place] [address] 69439 POCT Glucose Levelon 022 Glucose [Mass/Vol] 174 mg/dL High [address] [place] [address] Comment on above: Performed By: #### 4 [id number] ####[facility] (DEFAULT)[address] [place] [address] 31919 Glucose [Mass/Vol] 215 mg/dL High [address] [place] [address] Comment on above: Performed By: #### 4 [id number] ####[facility] (DEFAULT)[address] [place] [address] 00600 Glucose [Mass/Vol] 158 mg/dL High [address] [place] [address] Comment on above: Performed By: #### 4 [id number] ####[facility] (DEFAULT)[address] [place] [address] 23535 Glucose [Mass/Vol] 218 mg/dL High [address] [place] [address] Comment on above: Performed By: #### 4 [id number] ####[facility] (DEFAULT)[address] [place] [address] 63947 PTon 05-06-2021 INR Coag (PPP) [Relative time] 1.21 {INR} High 0.91-1.11 [facility] Comment on above: Performed By: #### 2 [id number] ####[facility] (DEFAULT)[address] [place] [address] 98845 PT 12.9 second(s) High 9.7-11.8 [facility] Comment on above: Performed By: #### 2 [id number] ####[facility] (DEFAULT)[address] [place] [address] 23068 TnI HSon 05-06-2021 Troponin I High Sensitivity 23 pg/mL Critically abnormal <=15 [facility] Comment on above: Result Comment: Male Baseline Delta 1Hr (Note pg/mL=ng/L) <20pg/mL 50-60% >20pg/mL 20%Female Baseline Delta 1Hr <15pg/mL 50-60% >15pg/mL 20%Other Baseline Delta 1Hr <18ng/mL 50-60% >18ng/mL 20%([employer] Guidelines September 2017)Results Called To DONNIE Yoon RN By Sofy Banks And Read Back For Confirmation On 05/06/2021 13:47:30 EST.Male Baseline Delta 1Hr (Note pg/mL=ng/L) <20pg/mL 50-60% >20pg/mL 20%Female Baseline Delta 1Hr <15pg/mL 50-60% >15pg/mL 20%Other Baseline Delta 1Hr <18ng/mL 50-60% >18ng/mL 20%([employer] Guidelines September 2017) Performed By: #### 5 [id number], [id number], 2702875, 02228350, [id number], [id number], 6464039, 3565086, 7829287, [id number], 8968719, [id number] ####[facility] (DEFAULT)[address] [place] [address] .Auto Diff 1on 05-05-2021 Auto [place] % 12 % Normal -12 [facility] Comment on above: Performed By: #### 7 363830, 06875040, [id number] ####[facility] (DEFAULT)[address] [place] [address] 33917 Baso Abs# 0.0 x10 Normal 0.0-0.2 [facility] Comment on above: Performed By: #### 7 345506, 27134718, [id number] ####[facility] (DEFAULT)[address] [place] [address] 83617 Basophils/100 WBC (Bld) 0.3 % Normal 0.2-2.0 [facility] Comment on above: Performed By: #### 7 690022, 35789467, [id number] ####[facility] (DEFAULT)[address] [place] [address] Eos Abs# 0.1 x10 Normal 0.0-0.4 [facility] Comment on above: Performed By: #### 7 245441, 24639911, [id number] ####[facility] (DEFAULT)[address] [place] [address] 66994 Eosinophils/100 WBC (Bld) 0.9 % Normal 0.9-4.0 [facility] Comment on above: Performed By: #### 7 413254, 16705435, [id number] ####[facility] (DEFAULT)[address] [place] [address] Lymph Abs# 1.4 x10 Normal 1.3-2.9 [facility] Comment on above: Performed By: #### 7 592054, 21173919, [id number] ####[facility] (DEFAULT)[address] [place] [address] Lymphocytes/100 WBC (Bld) 21 % Normal 14-48 [facility] Comment on above: Performed By: #### 7 749461, 15851552, [id number] ####[facility] (DEFAULT)[address] [place] [address] Tunica Abs# 0.8 x10 Normal 0.0-0.8 [facility] Comment on above: Performed By: #### 7 389161, 71258968, [id number] ####[facility] (DEFAULT)[address] [place] [address] Neut Abs# 4.3 x10 Normal 1.5-9.2 [facility] Comment on above: Performed By: #### 7 075659, 81431232, [id number] ####[facility] (DEFAULT)[address] [place] [address] Neutrophils/100 WBC (Bld) 66 % Normal 44-88 [facility] Comment on above: Performed By: #### 7 459104, 13288574, [id number] ####[facility] (DEFAULT)[address] [place] [address] CBC w/ Auto Diffon 2 Erythrocyte distribution width (RBC) [Ratio] 14.0 % Normal 11.5-15.0 [facility] Comment on above: Performed By: #### 7 190972, 67672095, [id number] ####[facility] (DEFAULT)[address] [place] [address] Hematocrit (Bld) [Volume fraction] 36.9 % Normal 33.7-40.4 [facility] Comment on above: Performed By: #### 7 204803, 10635735, [id number] ####[facility] (DEFAULT)[address] [place] [address] 51951 Hemoglobin (Bld) [Mass/Vol] 11.3 g/dL Normal 11.3-15.9 [facility] Comment on above: Performed By: #### 7 951702, 98193162, [id number] ####[facility] (DEFAULT)[address] [place] [address] 67949 Instr WBC 6.5 x10 Invalid Interpretation Code [facility] Comment on above: Performed By: #### 7 444788, [id number], ####[facility] (DEFAULT)[address] [place] [address] Man Diff? Auto Normal [facility] Comment on above: Performed By: #### 7 336349, 15589598, [id number] ####[facility] (DEFAULT)[address] [place] [address] 92007 MCH (RBC) [Entitic mass] 30 pg Normal 24-34 [facility] Comment on above: Performed By: #### 7 964583, 56766632, [id number] ####[facility] (DEFAULT)[address] [place] [address] 77043 MCHC (RBC) [Mass/Vol] 31 g/dL Normal 26-37 [facility] Comment on above: Performed By: #### 7 579197, 65772779, [id number] ####[facility] (DEFAULT)[address] [place] [address] 97563 MCV (RBC) [Entitic vol] 97 fL Normal 81-100 [facility] Comment on above: Performed By: #### 7 159475, 95835927, [id number] ####[facility] (DEFAULT)[address] [place] [address] 47690 Platelet 211 x10 Normal 138-427 [facility] Comment on above: Performed By: #### 7 478841, 90988441, [id number] ####[facility] (DEFAULT)[address] [place] [address] 75340 Platelet mean volume (Bld) [Entitic vol] 9.4 fL Normal 6.3-10.2 [facility] Comment on above: Performed By: #### 7 308195, 57713647, [id number] ####[facility] (DEFAULT)[address] [place] [address] 24656 RBC 3.80 x10 Normal 3.70-5.30 [facility] Comment on above: Performed By: #### 7 809681, 92951002, [id number] ####[facility] (DEFAULT)[address] [place] [address] 07713 WBC 6.5 x10 Normal 3.5-10.5 [facility] Comment on above: Performed By: #### 7 717081, 12351635, [id number] ####[facility] (DEFAULT)[address] [place] [address] 56122 CMP Standardon 05-05-2021 Albumin [Mass/Vol] 3.6 g/dL Normal 3.5-5.0 [facility] Comment on above: Performed By: #### 2 560177, [id number] ####[facility] (DEFAULT)[address] [place] [address] 02018 Albumin/Globulin [Mass ratio] 1.2 {ratio} Low 1.4-2.6 [facility] Comment on above: Performed By: #### 2 936897, [id number] ####[facility] (DEFAULT)[address] [place] [address] 49723 Alk Phos 69 IU/L Normal 32-91 [facility] Comment on above: Performed By: #### 2 489303, [id number] ####[facility] (DEFAULT)[address] [place] [address] 04881 ALT [Catalytic activity/Vol] 14.0 U/L Normal 14.0-54.0 [facility] Comment on above: Performed By: #### 2 818389, [id number] ####[facility] (DEFAULT)[address] [place] [address] 96920 Anion gap [Moles/Vol] 16.0 mmol/L Normal 5.0-19.0 [facility] Comment on above: Performed By: #### 2 046068, [id number] ####[facility] (DEFAULT)[address] [place] [address] 61853 AST [Catalytic activity/Vol] 18 U/L Normal 15-41 [facility] Comment on above: Performed By: #### 2 838434, [id number] ####[facility] (DEFAULT)[address] [place] [address] 06282 Bili Total 0.9 mg/dL Normal 0.3-1.2 [facility] Comment on above: Performed By: #### 2 238244, [id number] ####[facility] (DEFAULT)[address] [place] [address] 78356 Calcium [Mass/Vol] 9.2 mg/dL Normal 8.9-10.3 [facility] Comment on above: Performed By: #### 2 808001, [id number] ####[facility] (DEFAULT)[address] [place] [address] 85963 Chloride [Moles/Vol] 100 mmol/L Low 101-111 [facility] Comment on above: Performed By: #### 2 170248, [id number] ####[facility] (DEFAULT)[address] [place] [address] 73774 CO2 [Moles/Vol] 24 mmol/L Normal 21-32 [facility] Comment on above: Performed By: #### 2 222489, [id number] ####[facility] (DEFAULT)[address] [place] [address] 03714 Creatinine [Mass/Vol] 1.06 mg/dL Normal 0.60-1.30 [facility] Comment on above: Performed By: #### 2 242643, [id number] ####[facility] (DEFAULT)[address] [place] [address] 33285 eGFR AA 60 mL/min/1.73m2 Invalid Interpretation Code [facility] Comment on above: Result Comment: Bad Credit Collector tia Kidney disease could be indicated at eGFRs of less than 60 ml/min/1.73m2. Kidney Failure is indicated at less than 15 ml/min/1.73m2 Performed By: #### 2 867434, [id number] ####[facility] (DEFAULT)[address] [place] [address] 28936 eGFR Non AA 50 mL/min/1.73m2 Invalid Interpretation Code [facility] Comment on above: Performed By: #### 2 814537, [id number] ####[facility] (DEFAULT)[address] [place] [address] 78548 Globulin (S) [Mass/Vol] 2.9 g/dL Normal 1.5-4.3 [facility] Comment on above: Performed By: #### 2 419598, [id number] ####[facility] (DEFAULT)[address] [place] [address] 88812 Glucose [Mass/Vol] 219.0 mg/dL High 74.0-118.0 [facility] Comment on above: Performed By: #### 2 819269, [id number] ####[facility] (DEFAULT)[address] [place] [address] 24191 Osmolality 286 mOsm/L Invalid Interpretation Code [facility] Comment on above: Performed By: #### 2 387826, [id number] ####[facility] (DEFAULT)[address] [place] [address] 49029 Potassium [Moles/Vol] 4.2 mmol/L Normal 3.6-5.1 [facility] Comment on above: Result Comment: Nel ent on potassium therapy Performed By: #### 2 [id number], [id number] ####[facility] (DEFAULT)[address] [place] [address] 80568 Protein [Mass/Vol] 6.5 g/dL Normal 6.5-8.1 [facility] Comment on above: Performed By: #### 2 618695, [id number] ####[facility] (DEFAULT)[address] [place] [address] 42363 Sodium [Moles/Vol] 136.0 mmol/L Normal 136.0-144.0 [facility] Comment on above: Performed By: #### 2 737945, [id number] ####[facility] (DEFAULT)[address] [place] [address] 37473 Urea nitrogen [Mass/Vol] 32 mg/dL High 8-26 [facility] Comment on above: Performed By: #### 2 813001, [id number] ####[facility] (DEFAULT)[address] [place] [address] Urea nitrogen/Creatinine [Mass ratio] 30.0 mg/mg High 4.6-16.2 [facility] Comment on above: Performed By: #### 2 007767, [id number] ####[facility] (DEFAULT)[address] [place] [address] Consultation/Specialist Note on 05-05-2021 Consultation/Specialis t Note Normal [facility] Extra Blueon 05-05-2021 Tube Collected Yes Invalid Interpretation Code [facility] Comment on above: Performed By: #### 7 663081, 19442180, [id number] ####[facility] (DEFAULT)[address] [place] [address] Magnesiumon 05-05-2021 Magnesium [Mass/Vol] 2.15 mg/dL Normal 1.80-2.50 [facility] Comment on above: Performed By: #### 2 853110, [id number] ####[facility] (DEFAULT)[address] [place] [address] Nutrition Noteon 05-05-2021 Nutrition Note Normal [facility] POCT Glucose Levelon 022 Glucose [Mass/Vol] 265 mg/dL High 74-118 [facility] Comment on above: Performed By: #### 4 [id number] ####[facility] (DEFAULT)[address] [place] [address] Pharmacy Noteon 05-05-2021 Pharmacy Note Normal [facility] Telemetry Stripson 2 Telemetry Strips [id number] Normal [facility] TnI HSon 05-05-2021 Troponin I High Sensitivity 20 pg/mL Critically abnormal <=15 [facility] Comment on above: Order Comment: Resul ts Called To [facility] [place] By viet And Read Back For Confirmation On 05/04/2021 16:13:08 EST. Result Comment: Male Baseline Delta 1Hr (Note pg/mL=ng/L) <20pg/mL 50-60% >20pg/mL 20%Female Baseline Delta 1Hr <15pg/mL 50-60% >15pg/mL 20%Other Baseline Delta 1Hr <18ng/mL 50-60% >18ng/mL 20%([employer] Guidelines September 2017)Results Called To [facility] in [place] By ks And Read Back For Confirmation On 05/04/2021 16:14:01 EST.Male Baseline Delta 1Hr (Note pg/mL=ng/L) <20pg/mL 50-60% >20pg/mL 20%Female Baseline Delta 1Hr <15pg/mL 50-60% >15pg/mL 20%Other Baseline Delta 1Hr <18ng/mL 50-60% >18ng/mL 20%([employer] Guidelines September 2017) Performed By: #### 5 [id number] ####[facility] (DEFAULT)[address] [place] [address] US Echocardiogram Completeon 05-05-2021 US Echocardiogram Complete Normal [facility] .Auto Diff 1on 05-04-2021 Auto Tun[place] % 9 % Normal -12 [facility] Comment on above: Performed By: #### 5 [id number], 9687793, 0580853, 28271277, 593779114, 2709239871, 3755261, 9154875, 6869890, 0219435444, 5236462, 6603917172 ####[facility] (DEFAULT)[address] [place] [address] 25280 Baso Abs# 0.0 x10 Normal 0.0-0.2 [facility] Comment on above: Performed By: #### 5 [id number], 7306639, 8648765, 05608641, 570879476, 2092252724, 8754374, 6649321, 1859052, 7839146676, 3232092, [id number] ####[facility] (DEFAULT)[address] [place] [address] 46105 Basophils/100 WBC (Bld) 0.3 % Normal 0.2-2.0 [facility] Comment on above: Performed By: #### 5 [id number], 5265048, 2512552, 73467928, 723968406, 1480706155, 3861663, 2483557, 4463064, 1347485378, 9597673, 7694092954 ####[facility] (DEFAULT)[address] [place] [address] 63993 Eos Abs# 0.0 x10 Normal 0.0-0.4 [facility] Comment on above: Performed By: #### 5 342553677, 7137868, 7451991, 29035320, 802010503, 3565471001, 6467039, 7128351, 7805413, 7773538725, 9777103, 9131220106 ####[facility] (DEFAULT)[address] [place] [address] 54618 Eosinophils/100 WBC (Bld) 0.9 % Normal 0.9-4.0 [facility] Comment on above: Performed By: #### 5 532357490, 9761360, 0687483, 98725349, 498914936, 9079196948, 6190342, 1252805, 7076675, 9219545512, 1704822, 2500104094 ####[facility] (DEFAULT)[address] [place] [address] 70336 Lymph Abs# 1.1 x10 Low 1.3-2.9 [facility] Comment on above: Performed By: #### 5 006392874, 2068657, 0452471, 22082006, 487019590, 2039105186, 8175831, 6415719, 5988038, 5202068481, 9027726, 0887529167 ####[facility] (DEFAULT)[address] [place] [address] 52056 Lymphocytes/100 WBC (Bld) 19 % Normal 14-48 [facility] Comment on above: Performed By: #### 5 719806147, 3970444, 4062279, 09640562, 282399930, 4997737208, 7786168, 7584818, 5788431, 8748481381, 1041664, 4050741547 ####[facility] (DEFAULT)[address] [place] [address] 85401 Tunica Abs# 0.5 x10 Normal 0.0-0.8 [facility] Comment on above: Performed By: #### 5 388267025, 6808722, 6211368, 41806612, 290833552, 1244591795, 6983607, 4669574, 7733611, 6342402490, 0480745, 7485207043 ####[facility] (DEFAULT)[address] [place] [address] Neut Abs# 4.1 x10 Normal 1.5-9.2 [facility] Comment on above: Performed By: #### 5 193339054, 5705075, 5272089, 05976568, 337103856, 1518379828, 6144548, 8130105, 3166427, 4900026450, 4348022, 7064799811 ####[facility] (DEFAULT)[address] [place] [address] Neutrophils/100 WBC (Bld) 71 % Normal 44-88 [facility] Comment on above: Performed By: #### 5 [id number], 5659610, 7621876, 90103082, 924153702, 8760637897, 8839530, 4364264, 5910402, 0530403451, 9762955, 5057217540 ####[facility] (DEFAULT)[address] [place] [address] BNP.on 05-04-2021 Natriuretic peptide B (Bld) [Mass/Vol] 558.0 pg/mL High 0.0-100.0 [facility] Comment on above: Result Comment: BNP results greater than 100 pg/mL are considered abnormal and suggestive of patients with CHF. Higher BNP concentrations measured in the first 72 hours after an acute coronary syndorme are associated with an increased risk of , myocardial infarction, and CHF. Performed By: #### 5 [id number], 8453166, 3294139, 84675687, 476843094, 9106839759, 4857958, 4600970, 2320671, 1681700819, 3065664, 5240195558 ####[facility] (DEFAULT)[address] [place] [address] 45332 CBC w/ Auto Diffon 2 Erythrocyte distribution width (RBC) [Ratio] 13.9 % Normal 11.5-15.0 [facility] Comment on above: Performed By: #### 5 081918750, 3669994, 0519211, 55847291, 481173134, 8646108853, 8684485, 0702443, 1894559, 6261886274, 4919039, 0824714660 ####[facility] (DEFAULT)[address] [place] [address] Hematocrit (Bld) [Volume fraction] 40.9 % High 33.7-40.4 [facility] Comment on above: Performed By: #### 5 172170134, 2308879, 5236102, 63400109, 847806164, 6704620612, 7151515, 5592732, 5749431, 4983333055, 4923075, 1839956303 ####[facility] (DEFAULT)[address] [place] [address] Hemoglobin (Bld) [Mass/Vol] 12.5 g/dL Normal 11.3-15.9 [facility] Comment on above: Performed By: #### 5 852592716, 9482407, 2990499, 36953519, 554120918, 4113263093, 3552136, 8208183, 4463301, 2946810944, 4798084, 0957459880 ####[facility] (DEFAULT)[address] [place] [address] 35711 Instr WBC 5.9 x10 Invalid Interpretation Code [facility] Comment on above: Performed By: #### 5 729655356, 5399200, 8892403, 95421102, 341611022, 4076925474, 6602014, 7385004, 5213037, 0159457228, 8308081, 3842751051 ####[facility] (DEFAULT)[address] [place] [address] 72718 Man Diff? Auto Normal [facility] Comment on above: Performed By: #### 5 210862317, 7761874, 8095228, 61301828, 899512987, 6833233290, 3985339, 7696708, 5500241, 4470036498, 2783866, 4882073892 ####[facility] (DEFAULT)[address] [place] [address] 15429 MCH (RBC) [Entitic mass] 30 pg Normal 24-34 [facility] Comment on above: Performed By: #### 5 825848571, 6425884, 5453419, 07934797, 619594745, 8418992445, 0054607, 6655835, 6223733, 6350189599, 4134311, 2551261684 ####[facility] (DEFAULT)[address] [place] [address] 66275 MCHC (RBC) [Mass/Vol] 31 g/dL Normal 26-37 [facility] Comment on above: Performed By: #### 5 309031515, 6315670, 1941800, 23398235, 058853219, 2509758474, 0248122, 8630509, 5133006, 9655201578, 3507843, 9682429410 ####[facility] (DEFAULT)[address] [place] [address] 64330 MCV (RBC) [Entitic vol] 97 fL Normal 81-100 [facility] Comment on above: Performed By: #### 5 146169472, 7313860, 1044293, 41872440, 964063527, 0927752944, 3708319, 7765188, 3073254, 1380187642, 3164312, 9424604312 ####[facility] (DEFAULT)[address] [place] [address] 66741 Platelet 230 x10 Normal 138-427 [facility] Comment on above: Performed By: #### 5 149765221, 8119615, 9331556, 10382645, 159634975, 4233344040, 1796628, 6936322, 6529150, 1842885785, 7845283, 7658237248 ####[facility] (DEFAULT)[address] [place] [address] 11505 Platelet mean volume (Bld) [Entitic vol] 8.7 fL Normal 6.3-10.2 [facility] Comment on above: Performed By: #### 5 201731883, 8064149, 0630796, 98852600, 119360277, 6179156217, 1294534, 1471933, 6049996, 6316873291, 3693826, 8709029669 ####[facility] (DEFAULT)[address] [place] [address] RBC 4.23 x10 Normal 3.70-5.30 [facility] Comment on above: Performed By: #### 5 626247835, 1110282, 2373563, 81581334, 864193576, 3937314707, 6484622, 5065317, 9013810, 1417298822, 2849507, 2277392666 ####[facility] (DEFAULT)[address] [place] [address] 08228 WBC 5.9 x10 Normal 3.5-10.5 [facility] Comment on above: Performed By: #### 5 940792472, 6620063, 9063905, 58822552, 379330359, 9805768545, 4666290, 4307009, 9770190, 2097678589, 0266594, 3485240575 ####[facility] (DEFAULT)[address] [place] [address] 61234 CMP Standardon 05-04-2021 Albumin [Mass/Vol] 3.9 g/dL Normal 3.5-5.0 [facility] Comment on above: Performed By: #### 5 522588925, 6100681, 7208223, 83999462, 972823741, 5773780967, 7310614, 1028177, 3127746, 1966605504, 1879261, 9349624538 ####[facility] (DEFAULT)[address] [place] [address] 14465 Albumin/Globulin [Mass ratio] 1.3 {ratio} Low 1.4-2.6 [facility] Comment on above: Performed By: #### 5 723591715, 6239281, 0646560, 80726662, 110675640, 2819861960, 6878528, 8740678, 3089374, 2059608505, 3695886, 5166619851 ####[facility] (DEFAULT)[address] [place] [address] 67834 Alk Phos 75 IU/L Normal 32-91 [facility] Comment on above: Performed By: #### 5 962010471, 2374822, 8331573, 04959244, 171777572, 4610155472, 7255573, 7182377, 3096488, 7733242236, 8405222, 9745200451 ####[facility] (DEFAULT)[address] [place] [address] 98954 ALT [Catalytic activity/Vol] 15.0 U/L Normal 14.0-54.0 [facility] Comment on above: Performed By: #### 5 428131491, 7435582, 9387687, 81900620, 922310617, 8050264861, 2355240, 1474517, 5623809, 4860587275, 7332511, 5734186865 ####[facility] (DEFAULT)[address] [place] [address] 41230 Anion gap [Moles/Vol] 17.0 mmol/L Normal 5.0-19.0 [facility] Comment on above: Performed By: #### 5 598979114, 1249515, 6186021, 71949138, 732572293, 3436399582, 8291861, 7884311, 8966513, 8017160411, 8875075, 5513628866 ####[facility] (DEFAULT)[address] [place] [address] 03100 AST [Catalytic activity/Vol] 18 U/L Normal 15-41 [facility] Comment on above: Performed By: #### 5 814674839, 1768301, 1485719, 26897195, 037324910, 3866483812, 4950788, 1191837, 0981602, 8367170128, 1335362, 3042006948 ####[facility] (DEFAULT)[address] [place] [address] 03729 Bili Total 0.4 mg/dL Normal 0.3-1.2 [facility] Comment on above: Performed By: #### 5 561900044, 2311929, 1793556, 94066620, 492791964, 6819212583, 6918744, 1615165, 9691637, 5208073018, 9370434, 1664923149 ####[facility] (DEFAULT)[address] [place] [address] 31696 Calcium [Mass/Vol] 9.3 mg/dL Normal 8.9-10.3 [facility] Comment on above: Performed By: #### 5 231844314, 6188625, 9370685, 29198058, 610587557, 2068046930, 2337946, 3686250, 0433021, 2232334329, 4617550, 2040286744 ####[facility] (DEFAULT)[address] [place] [address] 10614 Chloride [Moles/Vol] 97 mmol/L Low 101-111 [facility] Comment on above: Performed By: #### 5 665385545, 7776577, 0756372, 31143432, 071025881, 5390506982, 7914279, 8593530, 1477039, 3612118681, 3420804, 0427225509 ####[facility] (DEFAULT)[address] [place] [address] 41536 CO2 [Moles/Vol] 25 mmol/L Normal 21-32 [facility] Comment on above: Performed By: #### 5 893650215, 6802291, 3762799, 72229189, 384455258, 1329747266, 5785181, 1661556, 5199226, 6818220197, 6562795, 6527948218 ####[facility] (DEFAULT)[address] [place] [address] 42400 Creatinine [Mass/Vol] 1.00 mg/dL Normal 0.60-1.30 [facility] Comment on above: Performed By: #### 5 346812195, 4018298, 7712447, 72219063, 282768954, 5775645039, 4308613, 1845593, 4430816, 8612472312, 9423098, 9845008028 ####[facility] (DEFAULT)[address] [place] [address] eGFR AA >60 Invalid Interpretation Code [facility] Comment on above: Result Comment: Bad Credit Collector tia Kidney disease could be indicated at eGFRs of less than 60 ml/min/1.73m2. Kidney Failure is indicated at less than 15 ml/min/1.73m2 Performed By: #### 5 231604192, 6468174, 9904862, 69801180, 910577838, 4398608541, 8972733, 7334998, 6620994, 9037325741, 8827189, 0860474916 ####[facility] (DEFAULT)[address] [place] [address] eGFR Non AA 53 mL/min/1.73m2 Invalid Interpretation Code [facility] Comment on above: Performed By: #### 5 016009239, 5463270, 3048516, 48983329, 571686973, 5927824603, 5601274, 3463782, 5066157, 2942252063, 2167964, 1836295110 ####[facility] (DEFAULT)[address] [place] [address] 05035 Globulin (S) [Mass/Vol] 3.1 g/dL Normal 1.5-4.3 [facility] Comment on above: Performed By: #### 5 831397727, 4822699, 1409334, 12165617, 862003232, 3722117809, 0587375, 4093300, 8044100, 4259960274, 3558790, 3131197594 ####[facility] (DEFAULT)[address] [place] [address] Glucose [Mass/Vol] 198.0 mg/dL High 74.0-118.0 [facility] Comment on above: Performed By: #### 5 265826859, 2041425, 0070565, 87830551, 263001952, 7048082251, 1293918, 7544241, 5134160, 0726508175, 6437874, 0577198636 ####[facility] (DEFAULT)[address] [place] [address] Osmolality 282 mOsm/L Invalid Interpretation Code [facility] Comment on above: Performed By: #### 5 746642222, 7846062, 8868064, 90957332, 587903808, 5413273103, 0347947, 2619255, 4381087, 5999296277, 0506738, 2774444067 ####[facility] (DEFAULT)[address] [place] [address] 66110 Potassium [Moles/Vol] 3.6 mmol/L Normal 3.6-5.1 [facility] Comment on above: Performed By: #### 5 810766607, 3384112, 6794811, 43604312, 213916364, 8702991640, 9998455, 0922740, 6011241, 7636594680, 4054042, 3296440426 ####[facility] (DEFAULT)[address] [place] [address] 43849 Protein [Mass/Vol] 7.0 g/dL Normal 6.5-8.1 [facility] Comment on above: Performed By: #### 5 329448812, 7766471, 1629979, 79798894, 453056864, 7109928242, 0342044, 3293577, 7397856, 3870411740, 4183613, 8220570669 ####[facility] (DEFAULT)[address] [place] [address] Sodium [Moles/Vol] 135.0 mmol/L Low 136.0-144.0 [facility] Comment on above: Performed By: #### 5 584316318, 5880387, 3114709, 92632600, 348252420, 8540988485, 5945920, 0457093, 8272366, 6254366661, 1446244, 2752566491 ####[facility] (DEFAULT)[address] [place] [address] 10844 Urea nitrogen [Mass/Vol] 32 mg/dL High 8-26 [facility] Comment on above: Performed By: #### 5 237874271, 9039485, 0008271, 24569359, 474326078, 8659485947, 1208214, 4622489, 5514306, 7997630272, 6239484, 7907033449 ####[facility] (DEFAULT)[address] [place] [address] Urea nitrogen/Creatinine [Mass ratio] 32.0 mg/mg High 4.6-16.2 [facility] Comment on above: Performed By: #### 5 349750464, 3019630, 5379095, 60117609, 387094629, 8054960457, 2255126, 5919423, 1780087, 6915521977, 5126499, 6518161038 ####[facility] (DEFAULT)[address] [place] [address] CT PE Chest w/ Contraston CT PE Chest w/ Contrast Normal [facility] D-Dimeron 05-04-2021 D-Dimer 1.01 mg/L FEU High 0.19-0.50 [facility] Comment on above: Result Comment: Resu lts Called To [facility] in ER By TB And Read Back For Confirmation On 05/04/2021 13:43:04 EST.The INNOVANCE D-Dimer assay (Cutoff Value of > 0.50) is intended for the use as an aid in the diagnosis of venous thromboembolism (VTE) deep vein thrombosis (DVT) or pulmonary embolism (PE). The measurement of D-Dimer should not be used as an aid in the diagnosis of VTE in patients with:? Therapeutic dose anticoagulant therapy for >24 hours? Fibrinolytic therapy within previous 7 days? Trauma or surgery within previous 4 weeks? Disseminated malignancies? Aortic aneurysm? Sepsis, sever infections, pneumonia, severe skin infections? Liver cirrhosis ? Performed By: #### 5 478334201, 6412426, 0758994, 80781344, 941239430, 8649460299, 3008911, 9492917, 0767762, 0654579888, 6744048, 2128974728 ####[facility] (DEFAULT)[address] [place] [address] ED Clinical Summaryon 2021 ED Clinical Summary Normal [facility] ED Note - Physicianon 2021 ED Note - Physician Normal [facility] ED Note - Provideron 022 ED Note - Provider [facility] ED Note-Nursingon 05-04-2021 ED Note-Nursing Pt presents to the E D with BLE swelling right more then left. and SOB x2 weeks. Pt has been covid vaccinated. Pt denies chest pain or palpations. Pt taken to room 8 via wheelchair. Pt is tachy with a Heart rate between 120- 140. Normal [facility] ED Patient Education Noteon 05-04-2021 ED Patient Education Note Education Materials Normal [facility] ED Patient Summaryon 022 ED Patient Summary [facility] Extra Redon 05-04-2021 Tube Collected Yes Invalid Interpretation Code [facility] Comment on above: Performed By: #### 5 [id number], 5827745, 1091462, 39841943, 247558509, 6860830799, 4274009, 6310183, 4879396, 2102350390, 5245593, 4611582996 ####[facility] (DEFAULT)[address] [place] [address] Free T4on 05-04-2021 Free T4 [Mass/Vol] 1.28 ng/dL High 0.61-1.12 [facility] Comment on above: Result Comment: Spec imens that contain high levels of Biotin may cause false high results Performed By: #### 5 374751316, 7877104, 5344515, 46233406, 761857990, 4903171893, 6710670, 8101300, 3433494, 8095179770, 2593393, 1700091142 ####[facility] (DEFAULT)[address] [place] [address] Magnesiumon 05-04-2021 Magnesium [Mass/Vol] 1.60 mg/dL Low 1.80-2.50 [facility] Comment on above: Performed By: #### 5 841991091, 1467365, 7819462, 99156964, 707293129, 3051003521, 4250338, 2617765, 2494410, 9637453636, 7315017, 5378857240 ####[facility] (DEFAULT)[address] [place] [address] POCT Glucose Levelon 022 Glucose [Mass/Vol] 236 mg/dL High 74-118 [facility] Comment on above: Performed By: #### 4 [id number] ####[facility] (DEFAULT)[address] [place], [place] [address] PTon 05-04-2021 INR Coag (PPP) [Relative time] 1.16 {INR} High 0.91-1.11 [facility] Comment on above: Performed By: #### 5 659805470, 8339047, 8121539, 38263274, 998142241, 9271239291, 7214558, 4614501, 5402846, 3654483871, 9635764, 0605620613 ####[facility] (DEFAULT)[address] [place] [address] PT 12.4 second(s) High 9.7-11.8 [facility] Comment on above: Performed By: #### 5 421427426, 1258038, 9593421, 38531880, 340080059, 8147830170, 7438349, 8958148, 5242111, 5770268239, 5719899, 7948728321 ####[facility] (DEFAULT)[address] [place] [address] 73544 PTTon 05-04-2021 PTT 25 second(s) Normal 25-35 [facility] Comment on above: Performed By: #### 5 138516970, 4870409, 3247203, 85171352, 188053229, 0353257172, 6372311, 3809512, 7428188, 7079719771, 9997266, 4103623333 ####[facility] (DEFAULT)[address] [place] [address] SARS-CoV-2 (COVID-19) PCRon 05-04-2021 Employed in healthcare? No Invalid Interpretation Code [facility] Comment on above: Performed By: #### 6 [id number] ####[facility] (DEFAULT)[address] [place] [address] Group care resident? Unknown Invalid Interpretation Code [facility] Comment on above: Performed By: #### 6 [id number] ####[facility] (DEFAULT)[address] [place] [address] 41936 In ICU? No Invalid Interpretation Code [facility] Comment on above: Performed By: #### 6 [id number] ####[facility] (DEFAULT)[address] [place] [address] 61970 status? Not Invalid Interpretation Code [facility] Comment on above: Performed By: #### 6 [id number] ####[facility] (DEFAULT)[address] [place] [address] 25579 SARS-CoV-2 (COVID-19) RNA KESHAWN+probe Ql (Unsp spec) Not detected Normal Not Detected [facility] Comment on above: Result Comment: Perf ormed by PCR methodology. Performed By: #### 6 [id number] ####[facility] (DEFAULT)[address] [place] [address] 55212 SARS-CoV-2 (COVID-19) RNA KESHAWN+probe Ql (Unsp spec) No Invalid Interpretation Code [facility] Comment on above: Performed By: #### 6 [id number] ####[facility] (DEFAULT)[address] [place] [address] Symptomatic as defined by CDC? No Invalid Interpretation Code [facility] Comment on above: Performed By: #### 6 [id number] ####[facility] (DEFAULT)[address] [place] [id number] TSH w/ Reflex to FT4on 05-04 TSH Qn 2.29 m[IU]/L Normal 0.45-5.33 [facility] Comment on above: Result Comment: Gene ral Population (males and non- females, aged 21-88) 0.45 - 5.33 Females, 1st Trimester 0.05 - 3.70 Females, 2nd Trimester 0.31 - 4.35 Females, 3rd Trimester 0.41 - 5.18 Performed By: #### 5 [id number], [id number], [id number], [id number], [id number], [id number] ####[facility] (DEFAULT)[address] [place] [address] Thyroid Panel 4on 05-04-2021 T3 Uptake. 48 % Normal 32-48 [facility] Comment on above: Performed By: #### 4 [id number] ####[facility] (DEFAULT)[address] [place] [address]41 T4 [Mass/Vol] 11.32 ug/dL Normal 6.09-12.23 [facility] Comment on above: Performed By: #### 4 [id number] ####[facility] (DEFAULT)[address] [place] [address] T7 5.43 Normal 1.94-5.91 [facility] Comment on above: Performed By: #### 4 [id number] ####[facility] (DEFAULT)[address] [place] [address] [id number] TSH Qn 2.28 m[IU]/L Normal 0.45-5.33 [facility] Comment on above: Result Comment: Gene ral Population (males and non- females, aged 21-88) 0.45 - 5.33 Females, 1st Trimester 0.05 - 3.70 Females, 2nd Trimester 0.31 - 4.35 Females, 3rd Trimester 0.41 - 5.18 Performed By: #### [id number] ####[facility] (DEFAULT)[address] [place] [address] [id number] US LE Venous Duplex Bilatera danny 05-04-2021 US LE Venous Duplex Bilateral Normal [facility] XR Chest 1 View Frontalon XR Chest 1 View Frontal Normal [facility] Coding Summaryon 04-28-2021 Coding Summary Normal [facility] XR Chest 2 Viewson XR Chest 2 Views Normal [facility] Outside Recordson 04-25-2021 Outside Records [id number] #[facility] Result[facility] Lab - Other Lab Results [id number]#1 .[facility] 04-18-2021 Outside Records [id number]#1 .[facility] 04-14-2021 Outside Records [id number]#1 .[facility] Handouton 04-13-2021 Patient Handout [facility] Outside Recordson 04-04-2021 Outside Records [id number]#1 .[facility] 03-22-2021 Outside Records [id number]# 1.[facility] 03-09-2021 Outside Records [id number]#1 .[facility] 03-07-2021 Outside Records [id number]#1 .[facility] 02-20-2021 Outside Records [id number]#1 .[facility] 12-27-2020 Outside Records [id number]#1.0 [facility] Social History Date Type Detail Facility Start: 07-05-2023 No alcohol use No alcohol use -[facility] [facility] DO Work Phone: Comment on above: AT AGE 14 FOR ONE YE AR; 1 cup coffee daily; Start: 07-05-2023 Alcoholic beverage intake Lifetime non-drinker (finding) [facility] Work Phone: Start: 07-05-2023 Tobacco use panel [facility] Work Phone: Start: 2023 End: 07-05-2023 Exposure to SARS-CoV-2 (event) Not sure [facility] Start: 05-07-2023 Tobacco smoking stat us NHIS Never smoked tobacco [facility] Work Phone: Start: 05-07-2023 Tobacco use and exposure Smokeless tobacco non-user [facility] Work Phone: Start: 1940 Sex Assigned At Female F [facility] Start: 1940 Sex assigned at Not on file [facility] Work Phone: Vital Signs Date Time Vital Sign Value Performing Clinician Faci lity 07-05-2023 11:45-0400 Body mass index (BMI) [Ratio] 27.57 kg/m2 Sherita Burris MD Work Phone: [facility] 07-05-2023 11:45-0400 Body weight 79.83 kg Sherita Burris MD Work Phone: [facility] 07-05-2023 11:45-0400 Diastolic blood pressure 70 mm[Hg] Sherita Burris MD Work Phone: [facility] 07-05-2023 11:45-0400 Heart rate 80 /min Sherita Burris MD Work Phone: [facility] 07-05-2023 11:45-0400 Systolic blood pressure 98 mm[Hg] Sherita Burris MD Work Phone: [facility] 11-23-2022 11:36-0400 Body height 170.18 cm Amos José [facility] [facility] DO Work Phone: 11-23-2022 11:36-0400 Body mass index (BMI) [Ratio] 26 kg/m2 Amos KhanReplaced by [facility] [facility] DO Work Phone: 11-23-2022 11:36-0400 Body surface area Derived from formula 1.87 m2 [facility] [facility] Work Phone: 11-23-2022 11:36-0400 Body weight 75.3 kg [facility] [facility] DO Work Phone: 11-23-2022 11:36-0400 Diastolic blood pressure 70 mm[Hg] Amos KhanReplaced by [facility] [facility] DO Work Phone: 11-23-2022 11:36-0400 Heart rate 101 /[facility] [facility] DO Work Phone: 11-23-2022 11:36-0400 Systolic blood pressure 122 mm[Hg] [facility] [facility] DO Work Phone: 05-11-2022 10:50-0400 Body height 170.18 cm [facility] [facility] DO Work Phone: 05-11-2022 10:50-0400 Body mass index (BMI) [Ratio] 26.63 kg/m2 [facility] [facility] DO Work Phone: 05-11-2022 10:50-0400 Body surface area Derived from formula 1.89 m2 [facility]os [facility] [facility] DO Work Phone: 05-11-2022 10:50-0400 Body weight 77.11 kg [facility] [facility] DO Work Phone: 05-11-2022 10:50-0400 Diastolic blood pressure 78 mm[Hg] Amos José [facility] [facility] DO Work Phone: 05-11-2022 10:50-0400 Heart rate 91 /min Amos José [facility] [facility] DO Work Phone: 05-11-2022 10:50-0400 Systolic blood pressure 112 mm[Hg] Amos José [facility] [facility] DO Work Phone: 11-10-2021 11:27-0400 Body height 170.18 cm Sherita Burris MD Work Phone: [facility] [facility] DO Work Phone: 11-10-2021 11:27-0400 Body mass index (BMI) [Ratio] 25.06 kg/m2 Shertia Burris MD Work Phone: [facility] [facility] DO Work Phone: 11-10-2021 11:27-0400 Body surface area Derived from formula 1.84 m2 Sherita Burris MD Work Phone: [facility] [facility] DO Work Phone: 11-10-2021 11:27-0400 Body weight 72.58 kg Sherita Burris MD Work Phone: [facility] [facility] DO Work Phone: 11-10-2021 11:27-0400 Diastolic blood pressure 60 mm[Hg] Sherita Burris MD Work Phone: [facility] [facility] DO Work Phone: 11-10-2021 11:27-0400 Heart rate 72 /min Sherita Burris MD Work Phone: [facility] [facility] DO Work Phone: 11-10-2021 11:27-0400 Systolic blood pressure 112 mm[Hg] Sherita Burris MD Work Phone: [facility] [facility] DO Work Phone: 06-07-2021 15:25-0400 Diastolic blood pressure 78 mm[Hg] Sherita Burris MD Work Phone: [facility] [facility] DO Work Phone: 06-07-2021 15:25-0400 Systolic blood pressure 107 mm[Hg] Sherita Burris MD Work Phone: [facility] [facility] DO Work Phone: 06-07-2021 15:22-0400 Body height 170.18 cm Sherita Burris MD Work Phone: [facility] [facility] DO Work Phone: 06-07-2021 15:22-0400 Body mass index (BMI) [Ratio] 28.66 kg/m2 Sherita Burris MD Work Phone: [facility] [facility] DO Work Phone: 06-07-2021 15:22-0400 Body surface area Derived from formula 1.95 m2 Sherita Burris MD Work Phone: [facility] [facility] DO Work Phone: 06-07-2021 15:22-0400 Body weight 83.01 kg Sherita Burris MD Work Phone: [facility] [facility] DO Work Phone: 06-07-2021 15:22-0400 Diastolic blood pressure 80 mm[Hg] Sherita Burris MD Work Phone: [facility] [facility] DO Work Phone: 06-07-2021 15:22-0400 Heart rate 103 /min Sherita Burris MD Work Phone: [facility] [facility] DO Work Phone: 06-07-2021 15:22-0400 Systolic blood pressure 108 mm[Hg] Sherita Burris MD Work Phone: [facility] [facility] DO Work Phone: Clinical Notes 06-09-2011 to 07-05-2023 Sherita Burris MD - 07/05/2023 11:30 AM EDTPatient Instructions Note Date & Type Note Facility 07-05-2023 History of Present illness Narrative Subjective Wilfredo Johnson is a 83 y.o. female Chief Complaint Follow-up HPI Patient is here for follow-up continue management for persistent becoming permanent atrial fibrillation, history of aortic valve replacement coronary artery disease and heart failure. Since last time I saw her she reports she is feeling reasonably well. She is almost will wheelchair-bound. She denies lightheadedness, dizziness or syncope. She describes slight increase of her edema. Her laboratory data from few months back noted and reviewed with her. Her BNP was mildly elevated. Renal function showed creatinine is 1.14. Her heart rate appears to be controlled Assessment 1. Atrial fibrillation becoming permanent elected for heart rate control on long-term anticoagulation 2. History of bioprosthetic aortic valve replacement last echo 2 years ago showed appropriate function 3. Presumed single-vessel coronary artery disease status post single-vessel bypass surgery detail is lacking. She denies any angina 4. Recent echocardiogram showed normal LV systolic 5. Mild volume overload and probably mild diastolic heart failure 6. Hyperlipidemia 7. Diabetes mellitus 8. Obesity with BMI of 27 9. Recent echo at outlying institution demonstrate mild to moderate mitral stenosis and mitral regurgitation Plan 1. I advised the patient to follow low-salt diet. I advised his to change her metolazone to every other day and to repeat her BMP 2. I discussed with her daughter treatment option for atrial fibrillation. We discussed heart rate control strategy versus rhythm control strategy. Following lengthy discussion concerning the patient and jail and having no symptoms we elected to continue with heart rate control strategy the family understood and agreed 3. 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 I reviewed her previous lab with her and her daughter 5. Risk, benefits alternative anticoagulation reviewed with patient she understood and agreed Review of Systems All other systems reviewed and are negative. Vitals: 07/05/23 1145 BP: 98/70 BP Location: Left arm Patient Position: Sitting Pulse: 80 Weight: 79.8 kg (176 lb) Objective Physical Exam Constitutional: Appearance: Normal appearance. HENT: Nose: Nose normal. Neck: Vascular: No carotid bruit. Cardiovascular: Rate and Rhythm: Normal rate. Rhythm irregularly irregular. Pulses: Normal pulses. Heart sounds: Murmur heard. Systolic murmur is present with a grade of 2/6. Pulmonary: Effort: Pulmonary effort is normal. Abdominal: General: Bowel sounds are normal. Palpations: Abdomen is soft. Musculoskeletal: General: Normal range of motion. Cervical back: Normal range of motion. Right lower le+ Edema present. Left lower le+ Edema present. Skin: General: Skin is warm and dry. Neurological: General: No focal deficit present. Mental Status: She is alert. Psychiatric: Mood and Affect: Mood normal. Behavior: Behavior normal. Thought Content: Thought content normal. Judgment: Judgment normal. Allergies Amaryl [glimepiride] Current Medications Current Outpatient Medications: acetaminophen (Tylenol) 500 mg tablet, Take 1 tablet (500 mg) by mouth every 6 hours if needed for mild pain (1 - 3)., Disp: , Rfl: apixaban (Eliquis) 5 mg tablet, Take 1 tablet (5 mg) by mouth 2 times a day., Disp: , Rfl: ascorbic acid (Vitamin C) 500 mg tablet, Take 1 tablet (500 mg) by mouth once daily., Disp: , Rfl: atorvastatin (Lipitor) 20 mg tablet, Take 1 tablet (20 mg) by mouth once daily at bedtime., Disp: , Rfl: bumetanide (Bumex) 2 mg tablet, Take 1 tablet (2 mg) by mouth once daily., Disp: , Rfl: cholecalciferol (Vitamin D3) 25 MCG (1000 UT) tablet, Take 1 tablet (1,000 Units) by mouth once daily., Disp: , Rfl: insulin glargine (Lantus Solostar U-100 Insulin) 100 unit/mL (3 mL) pen, Inject under the skin., Disp: , Rfl: magnesium oxide (Mag-Ox) 400 mg tablet, Take 1 tablet (400 mg) by mouth once daily., Disp: , Rfl: metFORMIN (Glucophage) 500 mg tablet, Take 2 tablets (1,000 mg) by mouth 2 times a day with meals., Disp: , Rfl: metoprolol succinate XL (Toprol-XL) 50 mg 24 hr tablet, Take 1 tablet (50 mg) by mouth 2 times a day., Disp: , Rfl: pantoprazole (ProtoNix) 40 mg EC tablet, Take 1 tablet (40 mg) by mouth once daily., Disp: , Rfl: potassium chloride CR 20 mEq ER tablet, Take 1 tablet (20 mEq) by mouth once daily. Do not crush or chew., Disp: , Rfl: saccharomyces boulardii (Florastor) 250 mg capsule, Take 1 capsule (250 mg) by mouth 2 times a day., Disp: , Rfl: spironolactone (Aldactone) 25 mg tablet, Take 1 tablet (25 mg) by mouth once daily., Disp: , Rfl: traZODone (Desyrel) 50 mg tablet, Take 1 tablet (50 mg) by mouth once daily at bedtime., Disp: , Rfl: melatonin 5 mg capsule, Take 1 capsule (5 mg) by mouth once daily at bedtime., Disp: , Rfl: metOLazone (Zaroxolyn) 2.5 mg tablet, Take 1 tablet (2.5 mg) by mouth every other day., Disp: 15 tablet, Rfl: 11 Assessment/Plan 1. S/P CABG (coronary artery bypass graft) 2. Aortic valve replaced 3. Mixed hyperlipidemia 4. Multiple vessel coronary artery disease Follow Up In Cardiology 5. Nonrheumatic mitral valve regurgitation 6. Edema, unspecified type metOLazone (Zaroxolyn) 2.5 mg tablet Basic Metabolic Panel Basic Metabolic Panel Scribe Attestation By signing my name below, Laura Limon LPN , Scrdaija attest that this documentation has been prepared under the direction and in the presence of Sherita Burris MD. Provider Attestation - Scribe documentation All medical record entries made by the Scribe were at my direction and personally dictated by me. I have reviewed the chart and agree that the record accurately reflects my personal performance of the history, physical exam, discussion and plan. documented in this encounter [facility] Work Phone: 07-05-2023 Instructions Laura Yeung LPN - 07/05/2023 11:30 AM EDT Please bring all medicines, vitamins, and herbal supplements with you when you come to the office. Prescriptions will not be filled unless you are compliant with your follow up appointments or have a follow up appointment scheduled as per instruction of your physician. Refills should be requested at the time of your visit. Zaroxolyn 2.5 mg every other day Lab work 8 months documented in this encounter [facility] Work Phone: 07-05-2021 Procedure note [facility] 06-09-2011 History of Present illness Narrative Patient is here for cardiovascular evaluation for congestive heart failure and atrial fibrillation. She is 80-year-old who describe previous history of single-vessel bypass surgery and aortic valve replacement in [place] about 10 years ago. She was in the hospital recently for new onset atrial fibrillation and heart failure. She was seen by the [place] cardiology group. Apparently her LVEF around 45%. The patient was placed on Coumadin and was discharged home. She was readmitted with heart failure symptomatology. Her diuretics were adjusted to. She continues to complain of orthopnea and lower extremity edema. She denies chest pain. During her hospitalization troponin was mildly elevated but this attributed to type II myocardial infarction. The patient Coumadin has been managed in the jail where she [facility]. She remains volume overloaded.Assessment1. Persistent atrial fibrillation heart rate controlled and on long-term anticoagulation with Coumadin2. History of aortic valve replacement recent echo suggest good function3. Presumed single-vessel coronary artery disease status post single-vessel bypass surgery detail is lacking4. LV systolic dysfunction with LVEF around 45%5. Congestive heart failure related to the above factors6. Hyperlipidemia7. Diabetes mellitus8. Obesity9 recent documentation of elevation of troponin attributed to type II [place] per recordPlan1. I advised the patient to follow low-salt diet2. I advised her to add Aldactone 25 mg once daily to optimize heart failure therapy3. I instructed the jail to notify me when INR above 2 for 3 weeks and will proceed with cardioversion4. We will try to retrieve her recent echo and the previous record from [place] but unfortunately patient does not remember her sanitation superintendent name and I told her to try to bring the record if she can so that we will be able to retrieve the records from [place] [id number] I believe we should proceed with repeat ischemic evaluation when the issue of atrial fibrillation heart failure has improved [facility] [employer] DO Work Phone: Chief complaint Narrative - Reported WILFREDO JOHNSON is being seen for a consultation for atrial fibrillation. [facility] [employer] 250 DO Work Phone: Evaluation note No assessment inform ation available [facility] Work Phone: Evaluation note Diagnosis S/P CABG (coronary artery bypass graft)- Primary Postsurgical aortocoronary bypass status Aortic valve replaced Heart valve replaced by other means Mixed hyperlipidemia Multiple vessel coronary artery disease Nonrheumatic mitral valve regurgitation Edema, unspecified type documented in this encounter [facility] Work Phone: History of Present illness Narrative* Patient is here for follow-up continue management for persistent atrial fibrillation, aortic valve replacement, single-vessel coronary artery disease, LV systolic dysfunction and hyperlipidemia. Since last time I saw her she underwent cardioversion which was successful. She felt marked improvement.She denies any chest pain, palpitation, lightheadedness, dizziness or syncope * Assessment * 1. Persistent atrial fibrillation with recent cardioversion. Remains in in normal sinus rhythm * 2. History of prostatic aortic valve replacement recent echo suggest good function * 3. Presumed single-vessel coronary artery disease status post single-vessel bypass surgery detail is lacking * 4. LV systolic dysfunction with LVEF around 45% * 5. Congestive heart failure related to the above factors * 6. Hyperlipidemia * 7. Diabetes mellitus * 8. Obesity * 9 recent documentation of elevation of troponin attributed to type II [place] per record * Plan * 1. I advised the patient to follow low-salt diet * 2. I discussed with her the issue of anticoagulation at great length. Family report her INR is fluctuating. Anticoagulation for atrial fibrillation in the setting of bioprosthetic aortic valve data reviewed with her after lengthy discussion the patient and the family elected to switch to Eliquis 5 mg twice daily. We will discontinue Coumadin * 3. 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 DO Work Phone: History of Present illness Narrative* Patient is here for follow-up continue management for persistent atrial fibrillation with prior cardioversion, aortic valve replacement, coronary artery disease and history of congestive heart failure. Since last time I saw her she reports she is feeling well. She is a jail. She denies complaint of chest pain, palpitation, lightheadedness, dizziness or syncope. On examination the patient noted to be in back in atrial fibrillation. EKG confirmed that. Her recent echocardiogram was noted and reviewed with her. * Assessment * 1. Persistent atrial fibrillation with prior cardioversion now back to atrial fibrillation but completely asymptomatic. Heart rate is controlled * 2. History of prostatic aortic valve replacement recent echo suggest good function * 3. Presumed single-vessel coronary artery disease status post single-vessel bypass surgery detail is lacking * 4. LV systolic dysfunction with LVEF in the normal range based on echo from outside facility * 5. Congestive heart failure related to the above factors compensated * 6. Hyperlipidemia * 7. Diabetes mellitus * 8. Obesity * Plan * 1. I advised the patient to follow low-salt diet * 2. I discussed with her daughter treatment option for atrial fibrillation. We discussed heart rate control strategy versus rhythm control strategy. Following lengthy discussion concerning the patientand jail and having no symptoms we elected to continue with heart rate control strategy thefamily understood and agreed * 3. 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 We will repeat lab work as ordered [employer] [facility] [facility] DO Work Phone: History of Present illness Narrative* Patient is here for follow-up continue management for persistent atrial fibrillation, aortic valve disease, mitral valve disease, coronary artery disease hyperlipidemia. Since last time I saw her shereports she is doing really well. She denies lightheadedness, dizziness or syncope. She remain in the jail. No recent lab available to review. She remains reasonably active. * Assessment * 1. Persis persistent becoming permanent atrial fibrillation cardioversion was successful but she went back to atrial fibrillation. She elected for heart rate control on long-term anticoagulation bilateral prostatic * 2. History of bioprosthetic aortic valve replacement recent echo suggest good function. Echo was done at [facility] institution * 3. Presumed single-vessel coronary artery disease status post single-vessel bypass surgery detail is lacking * 4. LV systolic dysfunction with LVEF in the normal range based on echo from outside facility * 5. Congestive heart failure related to the above factors compensated * 6. Hyperlipidemia * 7. Diabetes mellitus * 8. Obesity * 9. Recent echo at [facility] institution demonstrate mild to moderate mitral stenosis and mitral regurgitation * Plan * 1. I advised the patient to follow low-salt diet * 2. I discussed with her daughter treatment option for atrial fibrillation. We discussed heart rate control strategy versus rhythm control strategy. Following lengthy discussion concerning the patientand jail and having no symptoms we elected to continue with heart rate control strategy thefamily understood and agreed * 3. 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 We will repeat lab work as ordered -[facility] [facility] DO Work Phone: Reason for referral (narrative)* Consultation (Routine) - Authorized Specialty Diagnoses / Procedures Referred By Contac t Referred To Contact Cardiology Diagnoses Multiple vessel coronary artery disease Procedures Follow Up In Cardiology Sherita Burris MD 3 [facility] 2, [address] [address] Sherita Burris MD 703 [facility] 2, [address] [address] Referral ID Status Reason Start Date Expiration Date V isits Requested Visits Authorized [id number] Authorized 07/05/2023 07/04/2024 1 1 [facility] Work Phone: Family History No Family History Records FoundUnknown Family Member Name Dates Details Family history of cardiovasc ular disease: Father, Brother(V17.49, Z82.49) Status:Active Family history of diabetes m ellitus: Mother, Father, Sister(V18.0, Z83.3) Status:Active Family history of malignant neoplasm: Sibling(V16.9, Z80.9) Status:Active Unknown Family Member Name Dates Details Family history of cardiovasc ular disease: Father, Brother(V17.49, Z82.49) Status:Active Family history of diabetes m ellitus: Mother, Father, Sister(V18.0, Z83.3) Status:Active Family history of malignant neoplasm: Sibling(V16.9, Z80.9) Status:Active Unknown Family Member Name Dates Details Family history of cardiovasc ular disease: Father, Brother(V17.49, Z82.49) Status:Active Family history of diabetes m ellitus: Mother, Father, Sister(V18.0, Z83.3) Status:Active Family history of malignant neoplasm: Sibling(V16.9, Z80.9) Status:Active Unknown Family Member Name Dates Details Family history of cardiovasc ular disease: Father, Brother(V17.49, Z82.49) Status:Active Family history of diabetes m ellitus: Mother, Father, Sister(V18.0, Z83.3) Status:Active Family history of malignant neoplasm: Sibling(V16.9, Z80.9) Status:Active Unknown Family Member Name Dates Details Family history of cardiovasc ular disease: Father, Brother(V17.49, Z82.49) Status:Active Family history of diabetes m ellitus: Mother, Father, Sister(V18.0, Z83.3) Status:Active Family history of malignant neoplasm: Sibling(V16.9, Z80.9) Status:Active Unknown Family Member Name Dates Details Family history of cardiovasc ular disease: Father, Brother(V17.49, Z82.49) Status:Active Family history of diabetes m ellitus: Mother, Father, Sister(V18.0, Z83.3) Status:Active Family history of malignant neoplasm: Sibling(V16.9, Z80.9) Status:Active Unknown Family Member Name Dates Details Family history of cardiovasc ular disease: Father, Brother(V17.49, Z82.49) Status:Active Family history of diabetes m ellitus: Mother, Father, Sister(V18.0, Z83.3) Status:Active Family history of malignant neoplasm: Sibling(V16.9, Z80.9) Status:Active Chief Complaint and Reason for Visit Chief Complaint Pre Op Testing Chief Complaint Pre Op Testing Persistant AFib Advance Directives No Advanced Directives Records Found Advance Directive Response Recorded Date/ Time Advance Directives No July 03, 2021 2:15pm Summary Purpose Chief Complaint * F/U [facility]. * WILFREDO ALEX is being seen for a 4 month follow-up of. WILFREDO ALEX is being seen for a 6 month follow-up of.WILFREDO ALEX is being seen for a 6 wekg month follow-up of. Additional Source Comments Care Teams (unrecognized sec tion and content) Team Status: Inactive Member Role Status Dates Sherita Burris MD Attending Provider Active NON STAFF Primary Care Provider Active Team Status: Active Member Role Status Dates NON STAFF Primary Care Provider Active Team Status: Inactive Member Role Status Dates Sherita Burris MD Attending Provider, Referring Provider Active NON STAFF Primary Care Provider Active Health Practice Manager Relationship Specialty Start Date End Date Azael Browne DO [address] [facility] [place] [address] PCP - General Family Medicine 07/05/23 Goals (unrecognized section and content) Goals may be documented in a n alternate sectionGoals may be documented in an alternate section INFORMATION SOURCE (unrecogn ized section and content) DATE CREATED AUTHOR 10/31/2021 [facility] DATE CREATED AUTHOR AUTHOR'S ORGANIZ ATION 03/31/2022 [facility] DATE CREATED AUTHOR AUTHOR'S ORGANIZ ATION 11/30/2022 [facility] DATE CREATED AUTHOR AUTHOR'S ORGANIZ ATION 11/30/2022 [employer] DATE CREATED AUTHOR AUTHOR'S ORGANIZ ATION 06/20/2023 [facility] EPIC DATE CREATED AUTHOR AUTHOR'S ORGANIZ ATION 07/09/2023 [facility] DATE CREATED AUTHOR AUTHOR'S ORGANIZ ATION 07/24/2023 [facility] DATE CREATED AUTHOR AUTHOR'S ORGANIZ ATION 07/26/2023 [facility] Reason for Visit (unrecogniz ed section and content) Reason Comments Follow-up 8 month FOR RECORDS PERTAINING TO PATIENTS WHO ARE OR HAVE BEEN ENROLLED IN A CHEMICAL DEPENDENCY/SUBSTANCEABUSE PROGRAM, SOME INFORMATION MAY BE OMITTED. This clinical summary was aggregated from multiple sources. Caution should be exercised in using it in the provision of clinical care. This summary normalizes information from multiple sources, and as a consequence, information in this document may materially change the coding, format and clinical context of patient data. In addition, data may be omitted in some cases. CLINICAL DECISIONS SHOULD BE BASED ON THE PRIMARY CLINICAL RECORDS. [employer] provides no warranty or guarantee of the accuracy or completeness of information in this document.
[2023-08-05 08:41] LABS: Anion Gap 12.9; BUN Creatinine Ratio 39.6; Calcium 9.2 mg/dL (8.5-10.1); Carbon Dioxide 30.4 mmol/L (21.0-32.0); Chloride 93 mmol/L (98-107); Estimated GFR (African America 39 (>=60); Estimated GFR (Non-African Ame 32 (>=60); Glucose 200 mg/dL (74-106); Sodium 132 mmol/L (136-145)
[2023-08-05 08:47] LABS: Basophils Percent Auto 0.4 % (0.2-2.0); Eosinophils Absolute Auto 0.1 10^3/uL (0.0-0.7); Eosinophils Percent Auto 1.1 % (0.9-7.0); Hematocrit 35.6 % (36.0-48.0); Hemoglobin 11.5 g/dL (12.0-16.0); Immature Granulocytes Abs Auto 0.16 10^3/uL (0.00-0.03); Immature Granulocytes Pct Auto 1.5 % (0.0-0.5); Lymphocytes Absolute Auto 1.1 10^3/uL (1.2-3.8); Lymphocytes Percent Auto 10.4 % (20.5-60.0); Mean Corpuscular HGB Conc 32.3 g/dL (29.9-35.2); Mean Corpuscular Hemoglobin 29.9 pg (26.7-34.0); Mean Corpuscular Volume 92.5 fL (81.0-99.0); Mean Platelet Volume 10.3 fL (9.5-13.5); Monocytes Absolute Auto 0.9 10^3/uL (0.3-0.8); Monocytes Percent Auto 8.2 % (1.7-12.0); Neutrophils Absolute Auto 8.3 10^3/uL (1.4-6.5); Neutrophils Percent Auto 78.4 % (43.0-75.0); Platelet Count 299 10^3/uL (150-450); Potassium 4.3 mmol/L (3.5-5.1); Red Blood Count 3.85 10^6/uL (4.20-5.40); Red Cell Distribution Width 14.4 % (11.0-15.0); White Blood Count 10.6 10^3/uL (4.0-11.0)
== END 2023-08-05 02:34 | disposition home or self-care (01) ==
LOC: LAB 09-13 09:41
PROVIDERS: PCP Nurse Practitioner Adult Health; Visit Provider Nurse Practitioner Adult Health
DX: R41.82 Altered mental status, unspecified (principal); D64.9 Anemia, unspecified
CPT/HCPCS: 36415; 80048; 85025